=== PATIENT | male | born 1965 | race American Indian/Alaskan Native ===

== ENCOUNTER 2016-12-30 10:19 | Inpatient (IN) | payer OTHER ==
[2016-12-30] MEDS ORDERED: DUONEB 0.5 MG-3 MG/3 ML SOLN IH ONE ×2 (10:28→10:38)
[2016-12-30] MEDS ORDERED: PROVENTIL IH ONE ×2 (11:06→11:11)
[2016-12-30] MEDS ORDERED: MAGNESIUM SULFATE 2GM/50ML 2 GM/50 ML BAG IV ONE ×2 (11:11→11:14)
[2016-12-30] MEDS ORDERED: TORADOL ONE (11:13)
[2016-12-30] MEDS ORDERED: ADRENALIN ONE (11:14)
[2016-12-30] MEDS ORDERED: ADRENALINE P/F SUB-Q ONE (11:14)
[2016-12-30] MEDS ORDERED: ATROVENT IH ONE (11:14)
[2016-12-30] MEDS ORDERED: NACL 0.9% 500 ML 500 ML IV ONE (11:14)
[2016-12-30] MEDS ORDERED: TORADOL IM ONE (11:14)
--- NOTE | 2016-12-30 11:15 | Emergency Department Report ---
ED Shortness of Breath HPI - General Chief Complaint: Dyspnea/Respdistress Stated Complaint: SOB/RAPHAEL/COPD Time Seen by Provider: 12/30/16 11:10 Source: patient, RN notes reviewed, old records reviewed Mode of arrival: Wheelchair Limitations: No Limitations - History of Present Illness Initial Comments: This is a 52-year-old male. He is previously unknown to me. Has a past medical history of asthma, polycythemia, tobacco consumption. Patient admitted to the hospital in 2012 for similar symptoms, had a bone marrow biopsy performed, seen by hematology. Please see the patient's previous notes. Patient presents to the ER today for cough, shortness of breath, wheezing, chest tightness. Symptoms are similar to prior episodes of reactive airway disease. No recent trips greater than 4 hours. No recent hospital admissions. No hematemesis. No bright red blood per rectum. Symptoms are constant, they' re getting worse. MD Complaint: shortness of breath, cough, chest pain -: Gradual Consistency: constant Improves With: oxygen, rest, bronchodilators, upright position, medication Worsens With: lying flat, exertion Known History Of: asthma Context: recent URI Associated Symptoms: chest pain, cough Treatments Prior to Arrival: none - Related Data Home Oxygen Therapy: No Home Medications Medication Instructions Recorded Confirmed Last Taken Albuterol Sulfate [Albuterol 0.63% 0.63 mg IH TID PRN 12/30/16 12/30/16 Unknown NEBS] Fluticasone/Salmeterol [Advair 1 puff IH BID 12/30/16 12/30/16 Unknown Diskus 500-50 mcg] Guaifenesin/Codeine Phosphate 5 ml PO Q6H PRN 12/30/16 12/30/16 Unknown [Guaifenesin-Codeine Syrup] Ibuprofen [Motrin 800 MG tab] 800 mg PO Q8H PRN 12/30/16 12/30/16 Unknown Previous Rx's Medication Instructions Recorded Last Taken Type Albuterol Sulfate [Proventil HFA] 2 puff INHALATION Q4HR PRN #1 10/05/13 Unknown Rx [email or web address] Allergies Allergy/AdvReac Type Severity Reaction Status Date / Time No Known Allergies Allergy Unverified 09/22/13 16:54 ED Review of Systems ROS: Stated complaint: SOB/RAPHAEL/COPD Other details as noted in HPI Constitutional: malaise Eyes: denies: vision change ENT: denies: epistaxis Respiratory: cough, shortness of breath, SOB with exertion, SOB at rest Cardiovascular: chest pain, dyspnea on exertion Gastrointestinal: denies: nausea, vomiting Genitourinary: denies: dysuria Musculoskeletal: denies: arthralgia Skin: denies: lesions Neurological: weakness Psychiatric: anxiety ED Past Medical Hx - Past Medical History Previous Medical History?: Yes Hx Asthma: Yes (nubulizer) Hx COPD: Yes - Social History Smoking Status: Former Smoker Substance Use Type: Alcohol - Medications Home Medications: Home Medications Medication Instructions Recorded Confirmed Last Taken Type Albuterol Sulfate [Proventil HFA] 2 puff INHALATION Q4HR PRN #1 10/05/13 Unknown Rx [email or web address] Albuterol Sulfate [Albuterol 0.63% 0.63 mg IH TID PRN 12/30/16 12/30/16 Unknown History NEBS] Fluticasone/Salmeterol [Advair 1 puff IH BID 12/30/16 12/30/16 Unknown History Diskus 500-50 mcg] Guaifenesin/Codeine Phosphate 5 ml PO Q6H PRN 12/30/16 12/30/16 Unknown History [Guaifenesin-Codeine Syrup] Ibuprofen [Motrin 800 MG tab] 800 mg PO Q8H PRN 12/30/16 12/30/16 Unknown History ED Physical Exam - General Limitations: No Limitations General appearance: alert, in distress - Head Head exam: Present: atraumatic, normocephalic - Eye Eye exam: Present: normal appearance, EOMI. Absent: nystagmus - ENT ENT exam: Present: normal exam, normal orophraynx, mucous membranes moist, normal external ear exam - Neck Neck exam: Present: normal inspection, full ROM. Absent: tenderness, meningismus - Respiratory Respiratory exam: Present: respiratory distress, wheezes, rhonchi, accessory muscle use - Cardiovascular Cardiovascular Exam: Present: normal rhythm, tachycardia, normal heart sounds. Absent: systolic murmur, diastolic murmur, rubs, gallop - GI/Abdominal GI/Abdominal exam: Present: soft, normal bowel sounds. Absent: distended, tenderness, guarding, rebound, rigid - Rectal Rectal exam: Present: deferred - Extremities Exam Extremities exam: Present: normal inspection, full ROM, normal capillary refill. Absent: tenderness, pedal edema, joint swelling, calf tenderness - Back Exam Back exam: Present: normal inspection, full ROM. Absent: tenderness, CVA tenderness (R), CVA tenderness (L), muscle spasm, paraspinal tenderness, vertebral tenderness - Neurological Exam Neurological exam: Present: alert, oriented X3, other (Extraocular movements intact. Tongue midline. No facial droop. Facial sensation intact to light touch in the V1, V2, V3 distribution bilaterally. 5 and 5 strength in 4 extremities.. Sensation is intact to light touch in 4 extremities.). Absent: motor sensory deficit - Psychiatric Psychiatric exam: Present: normal affect, normal mood - Skin Skin exam: Present: warm, dry, intact, normal color. Absent: rash ED Course Vital Signs 12/30/16 12/30/16 12/30/16 10:27 11:09 11:24 Temperature 98.2 F Pulse Rate 113 H 112 H Respiratory 32 H 32 H 32 H Rate Blood Pressure 150/98 Blood Pressure 116/85 [Left] O2 Sat by Pulse 94 95 95 Oximetry 12/30/16 14:32 Temperature Pulse Rate 98 H Respiratory 20 Rate Blood Pressure Blood Pressure 116/90 [Left] O2 Sat by Pulse 95 Oximetry - Reevaluation(s) Reevaluation #1: 12/30/16 13:51 differential diagnosis: COPD exacerbation, asthma exacerbation, bronchitis, incidental polycythemia vera Assessment and plan: 51-year-old male with known history of COPD/interstitial lung disease, who presents with severe work of breathing. Initially, he is quite tachypneic, has markedly work of breathing. He required albuterol, Atrovent, steroids, magnesium, subcutaneous epinephrine, and initiation of BiPAP therapy. After approximately one hour on the aforementioned therapy, he improved dramatically, and was able to be transitioned off of the BiPAP mask. He is currently on nasal cannula, reports that he is feeling well, And his work of breathing has decreased. Case is discussed with the Hospital physician, Dr. Wilder, who accepts the patient to his service. His leukocytosis is appreciated, this has been present in the past, and i dont believe The patient requires emergent hematology consultation at this time, given that the patient has already been worked up for this. 12/30/16 15:14 Reevaluation #2: 12/30/16 13:56 chest pain in the context of increased work of breathing. Patient has reproducible chest wall pain, he is low risk by AMBER score, low risk by heart score ED Medical Decision Making - Lab Data Result diagrams: 12/30/16 11:25 12/30/16 11:25 Vital Signs 12/30/16 12/30/16 12/30/16 10:27 11:09 11:24 Temperature 98.2 F Pulse Rate 113 H 112 H Respiratory 32 H 32 H 32 H Rate Blood Pressure 150/98 Blood Pressure 116/85 [Left] O2 Sat by Pulse 94 95 95 Oximetry Lab Results 12/30/16 12/30/16 12/30/16 Range/Units 11:25 11:25 11:25 WBC TNR RBC TNR Hgb TNR Hct TNR MCV TNR MCH TNR MCHC TNR RDW TNR Plt Count TNR Lymph # Add Manual Diff Total Counted Seg Neuts % (Manual) (40.0-70.0) % Band Neutrophils % % Lymphocytes % (Manual) (13.4-35.0) % Reactive Lymphs % (Man) % Monocytes % (Manual) (0.0-7.3) % Eosinophils % (Manual) (0.0-4.3) % Basophils % (Manual) (0.0-1.8) % Metamyelocytes % % Myelocytes % % Promyelocytes % % Blast Cells % % Nucleated RBC % Seg Neutrophils # Man (1.8-7.7) K/mm3 Band Neutrophils # K/mm3 Lymphocytes # (Manual) (1.2-5.4) K/mm3 Abs React Lymphs (Man) K/mm3 Monocytes # (Manual) (0.0-0.8) K/mm3 Eosinophils # (Manual) (0.0-0.4) K/mm3 Basophils # (Manual) (0.0-0.1) K/mm3 Metamyelocytes # K/mm3 Myelocytes # K/mm3 Promyelocytes # K/mm3 Blast Cells # K/mm3 WBC Morphology Hypersegmented Neuts Hyposegmented Neuts Hypogranular Neuts Smudge Cells Toxic Granulation Toxic Vacuolation Dohle Bodies Pelger-Huet Anomaly Loree Rods Platelet Estimate Clumped Platelets Plt Clumps, EDTA Large Platelets Giant Platelets Platelet Satelliting Plt Morphology Comment RBC Morphology Dimorphic RBCs Polychromasia Hypochromasia Poikilocytosis Anisocytosis Microcytosis Macrocytosis Spherocytes Pappenheimer Bodies Sickle Cells Target Cells Tear Drop Cells Ovalocytes Helmet Cells [place] Bodies [place] Rings Dickens Cells Bite Cells Crenated Cell Elliptocytes Acanthocytes (Spur) Rouleaux Hemoglobin C Crystals Schistocytes Malaria parasites [place] Bodies Hem Pathologist Commnt PT 15.0 H (12.2-14.9) Sec. INR 1.19 H (0.87-1.13) Sodium 138 (137-145) mmol/L Potassium 4.5 (3.6-5.0) mmol/L Chloride 99.0 (98-107) mmol/L Carbon Dioxide 23 (22-30) mmol/L Anion Gap 21 mmol/L BUN 12 (9-20) mg/dL Creatinine 1.6 H (0.8-1.5) mg/dL Estimated GFR 55 ml/min BUN/Creatinine Ratio 7.50 % Glucose 91 (75-100) mg/dL Calcium 8.9 (8.4-10.2) mg/dL Troponin T < 0.010 (0.00-0.029) ng/mL 12/30/16 Range/Units 11:25 WBC 108.4 H* RBC 5.16 H Hgb 14.6 Hct 45.9 H MCV 89 MCH 28 MCHC 32 RDW 17.2 H Plt Count 125 L Lymph # Senior Maintenance Mechanic Add Manual Diff Complete Total Counted 100 Seg Neuts % (Manual) 54.0 (40.0-70.0) % Band Neutrophils % 7.0 % Lymphocytes % (Manual) 8.0 L (13.4-35.0) % Reactive Lymphs % (Man) 0 % Monocytes % (Manual) 7.0 (0.0-7.3) % Eosinophils % (Manual) 0 (0.0-4.3) % Basophils % (Manual) 0 (0.0-1.8) % Metamyelocytes % 17.0 % Myelocytes % 7.0 % Promyelocytes % 0 % Blast Cells % 0 % Nucleated RBC % Not Reportable Seg Neutrophils # Man 58.5 H (1.8-7.7) K/mm3 Band Neutrophils # 7.6 K/mm3 Lymphocytes # (Manual) 8.7 H (1.2-5.4) K/mm3 Abs React Lymphs (Man) 0.0 K/mm3 Monocytes # (Manual) 7.6 H (0.0-0.8) K/mm3 Eosinophils # (Manual) 0.0 (0.0-0.4) K/mm3 Basophils # (Manual) 0.0 (0.0-0.1) K/mm3 Metamyelocytes # 18.4 K/mm3 Myelocytes # 7.6 K/mm3 Promyelocytes # 0.0 K/mm3 Blast Cells # 0.0 K/mm3 WBC Morphology Not Reportable Hypersegmented Neuts Not Reportable Hyposegmented Neuts Not Reportable Hypogranular Neuts Not Reportable Smudge Cells Not Reportable Toxic Granulation Not Reportable Toxic Vacuolation Not Reportable Dohle Bodies Not Reportable Pelger-Huet Anomaly Not Reportable Loree Rods Not Reportable Platelet Estimate Cons Clumped Platelets Not Reportable Plt Clumps, EDTA Not Reportable Large Platelets Not Reportable Giant Platelets Not Reportable Platelet Satelliting Not Reportable Plt Morphology Comment Not Reportable RBC Morphology Not Reportable Dimorphic RBCs Not Reportable Polychromasia Not Reportable Hypochromasia Not Reportable Poikilocytosis Not Reportable Anisocytosis 1+ Microcytosis Not Reportable Macrocytosis Not Reportable Spherocytes Not Reportable Pappenheimer Bodies Not Reportable Sickle Cells Not Reportable Target Cells Not Reportable Tear Drop Cells Few Ovalocytes Not Reportable Helmet Cells Not Reportable [place] Bodies Not Reportable [place] Rings Not Reportable Elidia Cells Not Reportable Bite Cells Not Reportable Crenated Cell Not Reportable Elliptocytes Not Reportable Acanthocytes (Spur) Not Reportable Rouleaux Not Reportable Hemoglobin C Crystals Not Reportable Schistocytes Not Reportable Malaria parasites Not Reportable [place] Bodies Not Reportable Hem Pathologist Commnt Sent to pathology PT (12.2-14.9) Sec. INR (0.87-1.13) Sodium (137-145) mmol/L Potassium (3.6-5.0) mmol/L Chloride (98-107) mmol/L Carbon Dioxide (22-30) mmol/L Anion Gap mmol/L BUN (9-20) mg/dL Creatinine (0.8-1.5) mg/dL Estimated GFR ml/min BUN/Creatinine Ratio % Glucose (75-100) mg/dL Calcium (8.4-10.2) mg/dL Troponin T (0.00-0.029) ng/mL - EKG Data -: EKG Interpreted by Me EKG shows normal: sinus rhythm Rate: tachycardia - EKG Data 12/30/16 13:54 On his tachycardia, 114 beats per minute, normal axis, QTC 449 ms, not morphologically consistent with STEMI, atrial enlargement. Critical Care Time: Yes Critical care time in (mins) excluding proc time.: 45 Critical care attestation.: If time is entered above; I have spent that time in minutes in the direct care of this critically ill patient, excluding procedure time. Critical Care Time: Critical care time includes multiple bedside reevaluation's, interpretation of laboratory studies, radiology studies, time spent managing a patient with severe COPD/reactive lung disease, requiring positive pressure ventilation, subcutaneous epinephrine, and standard medications. This does not include procedure time. ED Disposition Clinical Impression: COPD exacerbation, Leukocytosis Disposition: OP ADMITTED IP TO THIS HOSP Is pt being admited?: Yes Does the pt Need Aspirin: Yes Condition: Good
--- NOTE | 2016-12-30 11:24 | Admit Criteria Form ---
Admission Criteria Documentation: RESPIRATORY FAILURE GRG Clinical Indications for Admission to Inpatient Care (Place 'X' for any and all applicable criteria): Hospital admission is needed for appropriate care of the patient because of acute respiratory failure or insufficiency as indicated by ANY ONE of the following(1)(2)(3)(4)(5)(6)(7)(8): [X ]I. Mechanical ventilation needed (acute invasive or noninvasive) [ ]II. Severe ventilation deficit as indicated by ANY ONE of the following (9) [ ]a) Respiratory acidosis (pH less than 7.32 and partial pressure of carbon dioxide greater than 40 mm Hg (5.3 kPa)) [ ]b) Partial pressure of carbon dioxide greater than 44 mm Hg (5.9 kPa ) (new) [ ]c) Airflow measurements less than 25% of predicted (eg, peak expiratory flow rate less than 100 L/minute) [ ]d) Forced vital capacity less than 15 mL/kg of ideal body weight, or 50% decrease in vital capacity from baseline [ ]III. Noncardiac pulmonary edema not resolving with rapid emergency treatment (8) [ ]IV. Severe respiratory distress as indicated by ANY ONE of the following: [ ]a) Severe tachypnea (respiratory rate greater than 30, greater than 45 for 6-month-old, greater than 60 for ) [ ]b) Severe hypoxemia (partial pressure of oxygen less than 50 mm Hg ( 6.7 kPa) on greater than 50% oxygen or partial pressure of oxygen to FIO2 ratio less than 200) [ ]c) Mental status deterioration from respiratory disease [ ]V. Airway obstruction or inadequate protection [A](10)(11) The original [employer] content created by [employer] has been revised. The portions of the content which have been revised are identified through the use of italic text or in bold, and [employer] has neither reviewed nor approved the modified material. All other unmodified content is copyright [employer]. Please see references footnoted in the original [employer] edition 2016 Admission Criteria Met: Yes
--- NOTE | 2016-12-30 11:25 | XRay Report ---
Portable chest: Shortness of breath. Lungs appear slightly hyperlucent and the interstitial markings may be slightly coarse. There is no nodule no infiltrate. No vascular distention. Normal heart size. These findings are unchanged compared to prior exam in August 2013. Impression: The findings raise suspicion of chronic interstitial lung changes. No acute findings.
[2016-12-30 11:44] LABS: INR 1.19 (0.87-1.13)
[2016-12-30 11:50] LABS: Hematocrit 45.9 % (35.5-45.6); Hemoglobin 14.6 gm/dl (11.8-15.2); Mean Corpuscular HGB Conc 32 % (32-34); Mean Corpuscular Hemoglobin 28 pg (28-32); Mean Corpuscular Volume 89 fl (84-94); Platelet Count 125 K/mm3 (140-440); Red Blood Count 5.16 M/mm3 (3.65-5.03); Red Cell Distribution Width 17.2 % (13.2-15.2); White Blood Count 108.4 K/mm3 (4.5-11.0)
[2016-12-30 11:52] LABS: Hematocrit TNR % (35.5-45.6); Hemoglobin TNR gm/dl (11.8-15.2); Mean Corpuscular HGB Conc TNR % (32-34); Mean Corpuscular Hemoglobin TNR pg (28-32); Mean Corpuscular Volume TNR fl (84-94); Red Blood Count TNR M/mm3 (3.65-5.03); White Blood Count TNR K/mm3 (4.5-11.0)
[2016-12-30 11:53] LABS: Mean Platelet Volume TNR fl (6-12); Platelet Count TNR K/mm3 (140-440); Red Cell Distribution Width TNR % (13.2-15.2)
[2016-12-30 11:54] LABS: Anion Gap 21 mmol/L; Blood Urea Nitrogen 12 mg/dL (9-20); Calcium 8.9 mg/dL (8.4-10.2); Carbon Dioxide 23 mmol/L (22-30); Glucose 91 mg/dL (75-100); Potassium 4.5 mmol/L (3.6-5.0); Sodium 138 mmol/L (137-145)
[2016-12-30 12:44] LABS: Basophils % (Manual) 0 % (0.0-1.8); Blastocytes % (Manual) 0 %; Eosinophils % (Manual) 0 % (0.0-4.3)
[2016-12-30 12:45] LABS: Anisocytosis 1+
[2016-12-30 12:46] LABS: Diff Status Complete; Platelet Estimate Cons; Tear Drop Cells Few
[2016-12-30] MEDS ORDERED: BABY ASPIRIN PO ONE (13:56)
--- NOTE | 2016-12-30 14:20 | Event Note ---
Date: 12/30/16 See H/p in reports Ac resp failure
[2016-12-30] MEDS ORDERED: GUAIFENESIN PO PRN (14:22)
[2016-12-30] MEDS ORDERED: CODEINE PHOSPHATE PO PRN (14:22)
[2016-12-30] MEDS ORDERED: DULCOLAX PR PRN (14:24)
[2016-12-30] MEDS ORDERED: MILK OF MAGNESIA PO PRN (14:24)
[2016-12-30] MEDS ORDERED: ZOFRAN IV PRN (14:24)
[2016-12-30] MEDS ORDERED: AMBIEN PO PRN (14:26)
[2016-12-30] MEDS ORDERED: DUONEB 0.5 MG-3 MG/3 ML SOLN IH PRN (14:29)
[2016-12-30] MEDS ORDERED: NON-FORMULARY (Fluticasone/Salmeterol [Advair Diskus 500-50 Mcg] 1 PUFF) IH SCH (14:30)
[2016-12-30] MEDS ORDERED: LEVAQUIN 750MG/150ML 750 MG/150 ML BAG IV SCH (15:00)
[2016-12-30] MEDS ORDERED: D5/0.45NS 1,000 ML IV SCH (15:00)
[2016-12-30] MEDS ORDERED: PROVENTIL IH PRN ×2 (15:13→15:14)
--- NOTE | 2016-12-30 15:22 | History and Physical Report ---
CHIEF COMPLAINT: Increasing shortness of breath for the last one week. HISTORY OF PRESENT ILLNESS: A 51-year-old -[place] male with history of COPD and CML, comes in for increasing shortness of breath of 1 week duration. The patient has been wheezing and coughing up mucoid sputum. The patient is very short of breath today. The patient has history of asthma, polycythemia and tobacco consumption. No fever, no chills. The patient has prior episodes of reactive airway disease. No recent hospital admissions. No hemetemesis. The patient is on BiPAP in the ER. During my examination, the patient is off BiPAP and on 2 liters nasal cannula oxygen. PAST MEDICAL HISTORY: As mentioned, significant for asthma/COPD. The patient smoked for about 10 years and stopped about 7 years ago. Also chronic myeloid leukemia versus chronic lymphocytic leukemia. The patient has polycythemia. PAST MEDICAL HISTORY: As mentioned asthma and COPD. PAST SURGICAL HISTORY: None. SOCIAL HISTORY: Former smoker, stopped smoking about a pack a day for the last 6-7 years ago. FAMILY HISTORY: Significant for hypertension. REVIEW OF SYSTEMS: CONSTITUTIONAL: No fever, no chills and increasing shortness of breath. HEENT: No sore throat, no postnasal drip. No diplopia. No cranial nerve paralysis. LUNGS AND HEART: S1, S2 heard, slight chest tightness present from coughing. LUNGS: Bilateral inspiratory and expiratory rhonchi present. Diminished air entry. ABDOMEN: Soft and benign. No hepatosplenomegaly. No guarding, no rigidity. CENTRAL NERVOUS SYSTEM: Alert and oriented x 4, nonfocal exam. LABORATORY DATA: Significant for white count of 108,000, H and H is 14.6 and 45.9, platelet count is 125,000. BUN and creatinine is 12 and 1.6. Sodium is 138, potassium is 4.5, bicarbonate is 23. ABG done, results not available. Chest x-ray shows COPD. EKG shows sinus tachycardia 140 beats per minute. QTC is slightly prolonged. Not morphologically consistent with STEMI. Chest x-ray, no infiltrates. ASSESSMENT AND PLAN: 1. Chronic obstructive pulmonary disease exacerbation. The patient continued on DuoNeb q.6 round the clock and q 3 p.r.n. and Levaquin 750 q. 24 hours and also Solu-Medrol 60 mg q.8 hours. 2. Chronic myeloid leukemia, Hematology consulted. The patient to continue his home medication. 3. Polycythemia secondary to smoking and hypoxia. The patient counseled to stop smoking completely. 4. Deep venous thrombosis prophylaxis, Lovenox 40 mg subcutaneous daily. [facility]# [id number] QI/MAGGIE MTDSeven
[2016-12-30 15:40] LABS: ISTAT Base Excess -4; ISTAT HCO3 21.8; ISTAT PCO2 42.1 (35-45); ISTAT PH 7.321 (7.35-7.45); ISTAT PO2 110 (80-105); ISTAT SO2 98; ISTAT TCO2 23
--- NOTE | 2016-12-30 18:09 | Consultation ---
History of Present Illness - Reason for Consult Consult date: 12/30/16 Severe leukocytosis Requesting physician: YAMEL EDWARDS - History of Present Illness Known to us from admission 3 years ago. He was supposed to f/u at our office but never came. At that time he presented with severe leukocytosis up to 80K; had negative BCR-ABL and JAK2 mutations. He had a bone marrow but was discharged before results were available. I was not able to open the bone marrow morphology report tonight but I opened the Scanned Reports section in the Laboratory tab and found out that the marrow cytogenetics showed 19/20 metaphases with 46 XY t(1;5)(q25;q31) translocation. This translocation activates the PDGFRB gene and has been associated with several myeloid disorders , including atypical CML (aCML). Patient's blood also shows no basophilia, which is another typical finding in aCML in contrast to classical CML. Currently has WBC 108.4, hgb. 14.6 g/dL, and platelets 125. Blood smear not available (in Path for review). Creatinine is 1.6 mg/dL (was 1.1 in Sep 2013). Apparently he was hypoxemic in the ED but I cannot find that report, only ABGs done while on O2. Patient tells me that he had been seen at [place] for his leukocytosis recently but no diagnosis made yet and no treatment started. He denies thromboembolic events and he denies fevers, sweats, and unintentional loss of weight. 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) , COPD Past Surgical History: No surgical history Social history: single, other (homeless; history of smoking; history of crack use (not using either now)) Family history: hypertension Medications and Allergies Allergies Allergy/AdvReac Type Severity Reaction Status Date / Time No Known Allergies Allergy Unverified 09/22/13 16:54 Home Medications Medication Instructions Recorded Confirmed Last Taken Type Albuterol Sulfate [Proventil HFA] 2 puff INHALATION Q4HR PRN #1 10/05/13 Unknown Rx hfa.[email or web address].[email or web address] Albuterol Sulfate [Albuterol 0.63% 0.63 mg IH TID PRN 12/30/16 12/30/16 Unknown History NEBS] Fluticasone/Salmeterol [Advair 1 puff IH BID 12/30/16 12/30/16 Unknown History Diskus 500-50 mcg] Guaifenesin/Codeine Phosphate 5 ml PO Q6H PRN 12/30/16 12/30/16 Unknown History [Guaifenesin-Codeine Syrup] Ibuprofen [Motrin 800 MG tab] 800 mg PO Q8H PRN 12/30/16 12/30/16 Unknown History Active Meds: Active Medications Acetaminophen (Tylenol) 650 mg PO Q4H PRN PRN Reason: Pain MILD(1-3)/Fever >100.5/STUART Albuterol (Proventil) 2.5 mg IH Q3HRT PRN PRN Reason: Shortness Of Breath Albuterol/Ipratropium (Duoneb 0.5 Mg-3 Mg/3 Ml Soln) 1 ampul IH Q6HRT [facility] Allopurinol (Zyloprim) 300 mg PO QDAY [facility] Arformoterol Tartrate (Brovana Nebu) 15 mcg IH Q12HRT [facility] Bisacodyl (Dulcolax) 10 mg MS QDAY PRN PRN Reason: Constipation unrelieved by MOM Budesonide (Pulmicort) 1 mg IH Q12HRT [facility] Enoxaparin Sodium (Lovenox) 30 mg SUB-Q QDAY [facility] Hydromorphone HCl (Dilaudid) 0.5 mg IV Q3H PRN PRN Reason: Pain , Severe (7-10) Hydroxyurea (Hydrea) 1,500 mg PO QDAY [facility] Dextrose/Sodium Chloride (D5/0.45ns) 1,000 mls @ 75 mls/hr IV DIRECT VALARIE Stop: 12/31/16 08:00 Last Admin: 12/30/16 17:40 Dose: 75 mls/hr Levofloxacin/Dextrose (Levaquin 750mg/150ml) 750 mg in 150 mls @ 100 mls/hr IV Q48H [facility] PRN Reason: Protocol Last Admin: 12/30/16 17:40 Dose: 100 mls/hr Magnesium Hydroxide (Milk Of Magnesia) 30 ml PO Q4H PRN PRN Reason: Constipation Methylprednisolone Sodium Succinate (Solu-Medrol) 60 mg IV Q8HR [facility] Last Admin: 12/30/16 17:39 Dose: 60 mg Ondansetron HCl (Zofran) 4 mg IV Q8H PRN PRN Reason: N/V unrelieved by Reglan Oxycodone/Acetaminophen (Percocet 5/325) 1 tab PO Q6H PRN PRN Reason: Pain, Moderate (4-6) Pseudoephedrine/Acetam/Chlorphenir (Robitussin Ac) 5 ml PO Q6H PRN PRN Reason: Cough Zolpidem Tartrate (Ambien) 5 mg PO QHS PRN PRN Reason: Insomnia Review of Systems Constitutional: malaise, poor appetite, no weight loss, no weight gain Ears, nose, mouth and throat: no epistaxis, no dysphagia, no hoarseness, no sore throat Cardiovascular: no chest pain, no palpitations, no high blood pressure, no leg edema Respiratory: cough, shortness of breath, dyspnea on exertion, no pain, no pain on inspiration Gastrointestinal: no abdominal pain, no nausea, no vomiting, no diarrhea, no constipation Genitourinary Male: no dysuria, no hematuria Musculoskeletal: no hot joints, no gait dysfunction, no arthritis Integumentary: no rash, no pruritis, no jaundice Neurological: no numbness, no tingling, no seizures, no syncope, no vertigo, no gait dysfunction, no motor disturbance, no sensory deficit, no double vision, no loss of vision Endocrine: no cold intolerance, no heat intolerance Hematologic/Lymphatic: no easy bruising, no easy bleeding Allergic/Immunologic: no urticaria Exam - Constitutional Vitals: Temp Pulse Resp BP Pulse Ox 98.2 F 106 H 22 121/73 94 12/30/16 17:31 12/30/16 17:31 12/30/16 17:31 12/30/16 17:31 12/30/16 17:31 General appearance: Present: mild distress, other (using O2 NC) - EENT Eyes: Present: PERRL, EOM intact. Absent: scleral icterus ENT: clear oral mucosa, no thrush - Neck Neck: Present: supple. Absent: masses or JVD - Respiratory Respiratory effort: labored Respiratory: bilateral: diminished - Cardiovascular Rhythm: regular Heart Sounds: Present: S1 & S2. Absent: gallop - Extremities Extremities: no ischemia, No edema - Abdominal General gastrointestinal: Present: soft, non-tender, non-distended, normal bowel sounds. Absent: hepatomegaly, splenomegaly, mass - Integumentary Integumentary: Present: warm, dry. 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 Will start allopurinol today and hydroxyurea tomorrow. Start TKI inhibitor outpatient. Will try to accrue into [facility] Indigent program because he has no insurance. (2) COPD exacerbation Current Visit: Yes Status: Acute Plan to address problem: Management as per primary team. I could not find a pulse oxymetry on room air. If patient was hypoxemic he may have pulmonary leukostasis and would need rapid cytoreduction with either leukopheresis or more aggressive hydroxyurea dosing. (3) Blood creatinine increased compared with prior measurement Current Visit: Yes Status: Acute Plan to address problem: E&M per primary service. Check Uric acid for possible hyperuricemic nephropaty.
[2016-12-30] MEDS: DUONEB 0.5 MG-3 MG/3 ML SOLN IH SCH ×2 (19:55→20:03)
[2016-12-30] MEDS: BROVANA NEBU IH SCH (20:03)
[2016-12-30] MEDS: PULMICORT IH SCH (20:03)
[2016-12-30] MEDS: DILAUDID IV PRN (22:26)
[2016-12-31] MEDS: DUONEB 0.5 MG-3 MG/3 ML SOLN IH SCH ×4 (02:01→20:12)
[2016-12-31 06:13] LABS: Albumin 3.8 g/dL (3.9-5); Albumin/Globulin Ratio 1.3 %; Bilirubin,Total 0.4 mg/dL (0.1-1.2); Calcium 8.5 mg/dL (8.4-10.2); Chloride 99.7 mmol/L (98-107); Potassium 4.2 mmol/L (3.6-5.0); Total Protein 6.7 g/dL (6.3-8.2)
[2016-12-31] MEDS: DILAUDID IV PRN (06:40)
[2016-12-31 06:41] LABS: Uric Acid 7.3 mg/dL (3.5-7.6)
[2016-12-31] MEDS: PULMICORT IH SCH ×2 (07:05→20:49)
[2016-12-31] MEDS: BROVANA NEBU IH SCH ×2 (07:05→20:42)
[2016-12-31] MEDS ORDERED: LOVENOX SUB-Q SCH ×2 (10:00)
[2016-12-31 10:14] LABS: ISTAT Base Excess -2; ISTAT DEVICE 0; ISTAT HCO3 22.5; ISTAT PCO2 35.4 (35-45); ISTAT PH 7.412 (7.35-7.45); ISTAT PO2 62 (80-105); ISTAT SO2 92; ISTAT TCO2 24
[2016-12-31] MEDS ORDERED: ZOFRAN IV PRN (10:16)
[2016-12-31] MEDS: LOVENOX SUB-Q SCH (12:04)
[2016-12-31] MEDS: LEVAQUIN 750MG/150ML 750 MG/150 ML BAG IV SCH (12:05)
[2016-12-31] MEDS: HYDREA PO SCH (12:05)
[2016-12-31] MEDS: ZYLOPRIM PO SCH ×2 (12:06)
[2016-12-31] MEDS: PERCOCET 5/325 PO PRN (14:46)
--- NOTE | 2016-12-31 14:53 | Progress Note ---
Assessment and Plan Assessment and plan: Patient is a 51 year old male with hx of copd, CML unfortunately had not follow with PCP as to the ER today with shortness of breath associated with cough productive of mucus sputum ONE week. 'On admission was placed on BiPAP due to hypoxia. Patient was seen by oncologist with and started on allopurinol today and hydroxyurea. and noted had negative BCR-ABL and JAK2 mutations. He had a bone marrow but was discharged before results were available. I was not able to open the bone marrow morphology report tonight but I opened the Scanned Reports section in the Laboratory tab and found out that the marrow cytogenetics showed 19/20 metaphases with 46 XY t(1;5)(q25;q31) translocation. This translocation activates the PDGFRB gene and has been associated with several myeloid disorders, including atypical CML (aCML). Patient's blood also shows no basophilia, which is another typical finding in aCML in contrast to classical CML." . Blood smear not available (in Path for review). * Acute on chronic shortness of breath. 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 Plan: * Hematology input noted * continue allopurinol/hydroxyurea * Follow blood smear * Continue nebulizer treatment, steroids, antibiotics * We'll discuss with oncologist * Obtain ABG * Renal function improve * DVT./GI PROPHYLAXIS * PLAN OF CARE discussed with patient. - History Interval history: Patient seen and examined this morning no acute distress reports some improvement in shortness of breath. Denies any chest pain, nausea, ventricular diarrhea. No adverse events reported by nursing staff Hospitalist Physical - Physical exam Narrative exam: VITAL SIGNS: Reviewed. GENERAL: The patient appeared well nourished and normally developed. Vital signs as documented. HEAD: No signs of head trauma. EYES: Pupils are equal. Extraocular motions intact. EARS: Hearing grossly intact. MOUTH: Oropharynx is normal. NECK: No adenopathy, no JVD. CHEST: Chest with diminished breath sounds bilaterally. No wheezes, rales, or rhonchi. CARDIAC: Regular rate and rhythm. S1 and S2, without murmurs, gallops, or rubs. VASCULAR: No Edema. Peripheral pulses normal and equal in all extremities. ABDOMEN: Soft, without detectable tenderness. No sign of distention. No rebound or guarding, and no masses palpated. Bowel Sounds normal. MUSCULOSKELETAL: Good range of motion of all major joints. Extremities without clubbing, cyanosis or edema. NEUROLOGIC EXAM: Alert and oriented x 3. No focal sensory or strength deficits. Speech normal. Follows commands. PSYCHIATRIC: Mood normal. SKIN: No rash or lesions. - Constitutional Vitals: Temp Pulse Resp BP Pulse Ox 97.7 F 79 18 120/78 95 12/31/16 08:00 12/31/16 08:00 12/31/16 08:00 12/31/16 08:00 12/31/16 08:00 General appearance: Present: mild distress, other (using O2 NC) Results - Labs CBC & Chem 7: 12/30/16 11:25 12/31/16 05:07 Labs: Laboratory Last Values WBC TNR 12/30/16 11:25 RBC TNR 12/30/16 11:25 Hgb TNR 12/30/16 11:25 Hct TNR 12/30/16 11:25 MCV TNR 12/30/16 11:25 MCH TNR 12/30/16 11:25 MCHC TNR 12/30/16 11:25 RDW TNR 12/30/16 11:25 Plt Count TNR 12/30/16 11:25 Lymph # Manager Professional Development 12/30/16 11:25 Add Manual Diff Complete 12/30/16 11:25 Total Counted 100 12/30/16 11:25 Seg Neuts % (Manual) 54.0 % (40.0-70.0) 12/30/16 11:25 Band Neutrophils % 7.0 % 12/30/16 11:25 Lymphocytes % (Manual) 8.0 % (13.4-35.0) L 12/30/16 11:25 Reactive Lymphs % (Man) 0 % 12/30/16 11:25 Monocytes % (Manual) 7.0 % (0.0-7.3) 12/30/16 11:25 Eosinophils % (Manual) 0 % (0.0-4.3) 12/30/16 11:25 Basophils % (Manual) 0 % (0.0-1.8) 12/30/16 11:25 Metamyelocytes % 17.0 % 12/30/16 11:25 Myelocytes % 7.0 % 12/30/16 11:25 Promyelocytes % 0 % 12/30/16 11:25 Blast Cells % 0 % 12/30/16 11:25 Nucleated RBC % Not Reportable 12/30/16 11:25 Seg Neutrophils # Man 58.5 K/mm3 (1.8-7.7) H 12/30/16 11:25 Band Neutrophils # 7.6 K/mm3 12/30/16 11:25 Lymphocytes # (Manual) 8.7 K/mm3 (1.2-5.4) H 12/30/16 11:25 Abs React Lymphs (Man) 0.0 K/mm3 12/30/16 11:25 Monocytes # (Manual) 7.6 K/mm3 (0.0-0.8) H 12/30/16 11:25 Eosinophils # (Manual) 0.0 K/mm3 (0.0-0.4) 12/30/16 11:25 Basophils # (Manual) 0.0 K/mm3 (0.0-0.1) 12/30/16 11:25 Metamyelocytes # 18.4 K/mm3 12/30/16 11:25 Myelocytes # 7.6 K/mm3 12/30/16 11:25 Promyelocytes # 0.0 K/mm3 12/30/16 11:25 Blast Cells # 0.0 K/mm3 12/30/16 11:25 Pathologist Review 12/30/16 11:25 WBC Morphology Not Reportable 12/30/16 11:25 Hypersegmented Neuts Not Reportable 12/30/16 11:25 Hyposegmented Neuts Not Reportable 12/30/16 11:25 Hypogranular Neuts Not Reportable 12/30/16 11:25 Smudge Cells Not Reportable 12/30/16 11:25 Toxic Granulation Not Reportable 12/30/16 11:25 Toxic Vacuolation Not Reportable 12/30/16 11:25 Dohle Bodies Not Reportable 12/30/16 11:25 Pelger-Huet Anomaly Not Reportable 12/30/16 11:25 Loree Rods Not Reportable 12/30/16 11:25 Platelet Estimate Cons 12/30/16 11:25 Clumped Platelets Not Reportable 12/30/16 11:25 Plt Clumps, EDTA Not Reportable 12/30/16 11:25 Large Platelets Not Reportable 12/30/16 11:25 Giant Platelets Not Reportable 12/30/16 11:25 Platelet Satelliting Not Reportable 12/30/16 11:25 Plt Morphology Comment Not Reportable 12/30/16 11:25 RBC Morphology Not Reportable 12/30/16 11:25 Dimorphic RBCs Not Reportable 12/30/16 11:25 Polychromasia Not Reportable 12/30/16 11:25 Hypochromasia Not Reportable 12/30/16 11:25 Poikilocytosis Not Reportable 12/30/16 11:25 Anisocytosis 1+ 12/30/16 11:25 Microcytosis Not Reportable 12/30/16 11:25 Macrocytosis Not Reportable 12/30/16 11:25 Spherocytes Not Reportable 12/30/16 11:25 Pappenheimer Bodies Not Reportable 12/30/16 11:25 Sickle Cells Not Reportable 12/30/16 11:25 Target Cells Not Reportable 12/30/16 11:25 Tear Drop Cells Few 12/30/16 11:25 Ovalocytes Not Reportable 12/30/16 11:25 Helmet Cells Not Reportable 12/30/16 11:25 Renner-Rubicon Bodies Not Reportable 12/30/16 11:25 Edison Rings Not Reportable 12/30/16 11:25 Elidia Cells Not Reportable 12/30/16 11:25 Bite Cells Not Reportable 12/30/16 11:25 Crenated Cell Not Reportable 12/30/16 11:25 Elliptocytes Not Reportable 12/30/16 11:25 Acanthocytes (Spur) Not Reportable 12/30/16 11:25 Rouleaux Not Reportable 12/30/16 11:25 Hemoglobin C Crystals Not Reportable 12/30/16 11:25 Schistocytes Not Reportable 12/30/16 11:25 Malaria parasites Not Reportable 12/30/16 11:25 Hernesto Bodies Not Reportable 12/30/16 11:25 Hem Pathologist Commnt Sent to pathology 12/30/16 11:25 PT 15.0 Sec. (12.2-14.9) H 12/30/16 11:25 INR 1.19 (0.87-1.13) H 12/30/16 11:25 POC ABG pH 7.412 (7.35-7.45) 12/31/16 09:57 POC ABG pCO2 35.4 (35-45) 12/31/16 09:57 POC ABG pO2 62 (80-105) L 12/31/16 09:57 POC ABG HCO3 22.5 12/31/16 09:57 POC ABG Total CO2 24 12/31/16 09:57 POC ABG O2 Sat 92 12/31/16 09:57 POC ABG Base Excess -2 12/31/16 09:57 FiO2 21 % 12/31/16 09:57 Sodium 137 mmol/L (137-145) 12/31/16 05:07 Potassium 4.2 mmol/L (3.6-5.0) 12/31/16 05:07 Chloride 99.7 mmol/L (98-107) 12/31/16 05:07 Carbon Dioxide 22 mmol/L (22-30) 12/31/16 05:07 Anion Gap 20 mmol/L 12/31/16 05:07 BUN 21 mg/dL (9-20) H 12/31/16 05:07 Creatinine 1.5 mg/dL (0.8-1.5) 12/31/16 05:07 Estimated GFR 59 ml/min 12/31/16 05:07 BUN/Creatinine Ratio 14.00 % 12/31/16 05:07 Glucose 149 mg/dL (75-100) H 12/31/16 05:07 Hemoglobin A1c 6.0 % (4-6) 12/30/16 14:48 Uric Acid 7.3 mg/dL (3.5-7.6) 12/31/16 05:07 Calcium 8.5 mg/dL (8.4-10.2) 12/31/16 05:07 Total Bilirubin 0.4 mg/dL (0.1-1.2) 12/31/16 05:07 AST 7 units/L (5-40) 12/31/16 05:07 ALT 6 units/L (7-56) L 12/31/16 05:07 Alkaline Phosphatase 50 units/L (35-129) 12/31/16 05:07 Lactate Dehydrogenase 285 units/L (91-180) H 12/31/16 05:07 Troponin T < 0.010 ng/mL (0.00-0.029) 12/30/16 11:25 Total Protein 6.7 g/dL (6.3-8.2) 12/31/16 05:07 Albumin 3.8 g/dL (3.9-5) L 12/31/16 05:07 Albumin/Globulin Ratio 1.3 % 12/31/16 05:07 - Imaging and Cardiology Chest x-ray: image reviewed (interstitial lung disease)
[2016-12-31 17:07] LABS: Hematocrit 43.2 % (35.5-45.6); Hemoglobin 13.7 gm/dl (11.8-15.2); Mean Corpuscular HGB Conc 32 % (32-34); Mean Corpuscular Hemoglobin 28 pg (28-32); Mean Corpuscular Volume 89 fl (84-94); Platelet Count 141 K/mm3 (140-440); Red Blood Count 4.87 M/mm3 (3.65-5.03); Red Cell Distribution Width 17.6 % (13.2-15.2)
[2016-12-31 17:09] LABS: Phosphorous 4.2 mg/dL (2.5-4.5)
[2016-12-31 17:13] LABS: White Blood Count 150.2 K/mm3 (4.5-11.0)
[2016-12-31 19:46] LABS: Basophils % (Manual) 0 % (0.0-1.8); Eosinophils % (Manual) 0 % (0.0-4.3)
[2016-12-31 19:50] LABS: Anisocytosis 1+; Diff Status Complete; Elliptocytes Few; Platelet Estimate Consistent w Auto; Polychromasia 1+
[2016-12-31] MEDS: ROBITUSSIN AC PO PRN (20:27)
[2017-01-01] MEDS: DUONEB 0.5 MG-3 MG/3 ML SOLN IH SCH ×4 (02:38→20:49)
[2017-01-01] MEDS: PULMICORT IH SCH ×2 (07:48→19:51)
[2017-01-01] MEDS: BROVANA NEBU IH SCH ×2 (07:49→19:51)
[2017-01-01] MEDS: ROBITUSSIN AC PO PRN ×2 (09:37→19:11)
[2017-01-01] MEDS: HYDREA PO SCH (09:43)
[2017-01-01] MEDS: LEVAQUIN 750MG/150ML 750 MG/150 ML BAG IV SCH (09:43)
[2017-01-01] MEDS: LOVENOX SUB-Q SCH (09:43)
[2017-01-01] MEDS: ZYLOPRIM PO SCH (09:43)
[2017-01-01] MEDS: PERCOCET 5/325 PO PRN (09:44)
[2017-01-01 10:34] LABS: BUN/Creatinine Ratio 12.94; Calcium 8.7 mg/dL (8.4-10.2); Chloride 98.6 mmol/L (98-107); Potassium 4.5 mmol/L (3.6-5.0)
[2017-01-01 10:48] LABS: Hematocrit 44.6 % (35.5-45.6); Mean Corpuscular HGB Conc 31 % (32-34); Mean Corpuscular Hemoglobin 28 pg (28-32); Mean Corpuscular Volume 90 fl (84-94); Platelet Count 156 K/mm3 (140-440); Red Blood Count 4.96 M/mm3 (3.65-5.03); Red Cell Distribution Width 17.7 % (13.2-15.2)
[2017-01-01 11:00] LABS: White Blood Count 160.4 K/mm3 (4.5-11.0)
--- NOTE | 2017-01-01 12:22 | Physician Progress Note ---
FOLLOWUP NOTE SUBJECTIVE: The patient states that his shortness of breath has significantly improved. He is on O2. He is not as short of breath as yesterday. I talked to the nurse. He started Hydrea 1500 mg today. Checked with the nurse, already Hydrea has been ordered on daily basis. He should be receiving it tomorrow. He has no fever. No chills. No hemoptysis. No skin rash. No itching. No ____ quadrant pain. No ____ part of the body. No headache. No back pain. No recent thrombotic event. No skin rash. No itching. OBJECTIVE: VITAL SIGNS: Temperature 97.6, blood pressure 113/62, pulse 76, respirations 20, and O2 saturation 96%. Reviewing recent records of O2 saturation; the last 3 recorded 98%, 95%, 96%. GENERAL: The patient in bed, sitting up, alert and oriented, in no apparent respiratory distress. O2 in place, nasal cannula. Grossly, he has no evidence of wheezing. Grossly, there is no evidence of accessory muscle use. SKIN: No bruises. No petechiae. HEENT: No nose bleed. No gum bleed. NECK: No adenopathy. CHEST: Normal breathing pattern. No use of accessory muscles. LUNGS: The patient has no wheezing I could hear today. No rales. Nonetheless, he has diminished breathing sounds. Expiratory phase is increased. HEART: Regular rate and rhythm. No S3 or gallop. ABDOMEN: Soft, nontender. No palpable masses, ____ I could not feel spleen today. No inguinal adenopathy. SPINE: Nontender. GENITOURINARY: No flank tenderness. EXTREMITIES: No calves tenderness bilaterally. No edema. CENTRAL NERVOUS SYSTEM: No acute/recent focal [place] deficits. Mood and affect unremarkable. LABORATORY DATA: O2 saturation finding has been discussed above. No CBCs available for today (I reordered following the visits since not being done) ____ white cell count 108, hemoglobin 14.6, hematocrit 45.9, MCV 89, MCH 28, MCHC 32, RDW 17, platelets 125,000, neutrophils 58, bands 7.6, lymphocyte 8.7, monocytes 7.6. He has 18 metamyelocyte and 7.6 monocytes. No blast has been identified. Today BUN 21, creatinine ____. Today uric acid 7.3. Calcium today 8.5. Bilirubin is 7.0. ASSESSMENT: 1. Atypical chronic myeloid leukemia. BCR/ABL negative. His leukemia is rare type with ____ gene. The patient started on allopurinol yesterday. Hydrea started today 1500 mg p.o. daily. 2. Chronic obstructive pulmonary disease exacerbation, improved clinically. 3. Blood creatinine was up yesterday, today back to normal values. 4. History of polycythemia secondary to tobacco abuse. 5. History of tobacco abuse. PLAN: Hydrea started today. The patient will be monitored for tumor lysis syndrome. Followup CBC will be requested. Followup basic metabolic profile with special emphasis on BUN and creatinine being initiated. Also followup with uric acid and phosphate has been requested. Continue management ____ medical problems. Discuss ____ with the patient as well as case management director. I did discuss with the patient and case management that following his initial diagnosis 3 years ago, he failed to show up for followup appointment. He is to follow with [facility] same week following discharge. JOB# [id number] ALTAGRACIA/NTS
[2017-01-01] MEDS: TYLENOL PO PRN (14:11)
[2017-01-01 14:30] LABS: Creatine Kinase 51 units/L (55-170)
[2017-01-01 14:37] LABS: Creatine Kinase MB < 1.0 ng/mL (0.0-4.0)
[2017-01-01 17:23] LABS: Hematocrit 43.8 % (35.5-45.6); Hemoglobin 13.7 gm/dl (11.8-15.2); Mean Corpuscular HGB Conc 31 % (32-34); Mean Corpuscular Hemoglobin 28 pg (28-32); Mean Corpuscular Volume 89 fl (84-94); Platelet Count 146 K/mm3 (140-440); Red Blood Count 4.94 M/mm3 (3.65-5.03); Red Cell Distribution Width 17.7 % (13.2-15.2)
[2017-01-01 17:31] LABS: White Blood Count 161.9 K/mm3 (4.5-11.0)
[2017-01-01 17:33] LABS: Phosphorous 3.8 mg/dL (2.5-4.5)
[2017-01-01 17:35] LABS: Creatine Kinase MB 1.1 ng/mL (0.0-4.0)
[2017-01-01 17:45] LABS: Calcium 8.5 mg/dL (8.4-10.2); Chloride 96.9 mmol/L (98-107)
--- NOTE | 2017-01-01 18:39 | Progress Note ---
Assessment and Plan Assessment and plan: Patient is a 51 year old male with hx of copd, CML unfortunately had not follow with PCP as to the ER today with shortness of breath associated with cough productive of mucus sputum ONE week. 'On admission was placed on BiPAP due to hypoxia. Patient was seen by oncologist with and started on allopurinol today and hydroxyurea. and noted had negative BCR-ABL and JAK2 mutations. He had a bone marrow but was discharged before results were available. I was not able to open the bone marrow morphology report tonight but I opened the Scanned Reports section in the Laboratory tab and found out that the marrow cytogenetics showed 19/20 metaphases with 46 XY t(1;5)(q25;q31) translocation. This translocation activates the PDGFRB gene and has been associated with several myeloid disorders, including atypical CML (aCML). Patient's blood also shows no basophilia, which is another typical finding in aCML in contrast to classical CML." . Blood smear not available (in Path for review). * Acute on chronic respiratory failure * Hop. * COPD EXACERBATION * arm pain r/o acs * Acute kidney injury likely secondary to vasomotor nephropathy * Polycythemia Vera secondary to smoking and hypoxia- resolved * CML BCR/ABL-negative * Tobacco abuse. Plan: * Hematology input noted * Troponin check and normal. no chest pain. EKG reviewed and normal sinus rhythm noted * continue allopurinol/hydroxyurea * Follow blood smear, BMP, Leukocytosis, uric acid and phosphate. * ?increase leukocytosis if steriods is contributing. will taper steriods. * Continue nebulizer treatment, steroids, antibiotics * We'll discuss with oncologist * Renal function improve * Home 02 eval prior to discharge * DVT./GI PROPHYLAXIS * PLAN OF CARE discussed with patient. - History Interval history: Patient seen and examined this morning notes some improvement but still with cough Denies any chest pain, nausea, diarrhea. No adverse events reported by nursing staff. later today reported left arm pain. Hospitalist Physical - Physical exam Narrative exam: VITAL SIGNS: Reviewed. GENERAL: The patient appeared well nourished and normally developed. Vital signs as documented. HEAD: No signs of head trauma. EYES: Pupils are equal. Extraocular motions intact. EARS: Hearing grossly intact. MOUTH: Oropharynx is normal. NECK: No adenopathy, no JVD. CHEST: Chest with wheezing breath sounds bilaterally. CARDIAC: Regular rate and rhythm. S1 and S2, without murmurs, gallops, or rubs. VASCULAR: No Edema. Peripheral pulses normal and equal in all extremities. ABDOMEN: Soft, without detectable tenderness. No sign of distention. No rebound or guarding, and no masses palpated. Bowel Sounds normal. MUSCULOSKELETAL: Good range of motion of all major joints. Extremities without clubbing, cyanosis or edema. NEUROLOGIC EXAM: Alert and oriented x 3. No focal sensory or strength deficits. Speech normal. Follows commands. PSYCHIATRIC: Mood normal. SKIN: No rash or lesions. - Constitutional Vitals: Temp Pulse Resp BP Pulse Ox 97.9 F 77 20 115/62 94 01/01/17 15:26 01/01/17 15:26 01/01/17 15:26 01/01/17 15:26 01/01/17 08:20 General appearance: Present: mild distress, other (using O2 NC) Results - Labs CBC & Chem 7: 01/01/17 16:41 01/01/17 16:41 Labs: Laboratory Last Values WBC 161.9 K/mm3 (4.5-11.0) H* 01/01/17 16:41 RBC 4.94 M/mm3 (3.65-5.03) 01/01/17 16:41 Hgb 13.7 gm/dl (11.8-15.2) 01/01/17 16:41 Hct 43.8 % (35.5-45.6) 01/01/17 16:41 MCV 89 fl (84-94) 01/01/17 16:41 MCH 28 pg (28-32) 01/01/17 16:41 MCHC 31 % (32-34) L 01/01/17 16:41 RDW 17.7 % (13.2-15.2) H 01/01/17 16:41 Plt Count 146 K/mm3 (140-440) 01/01/17 16:41 Lymph # [employer] Vehicle [employer] 12/31/16 16:25 Add Manual Diff Complete 12/31/16 16:25 Total Counted 200 12/31/16 16:25 Seg Neutrophils % [employer] Vehicle Salesperson 12/31/16 16:25 Seg Neuts % (Manual) 28.5 % (40.0-70.0) L 12/31/16 16:25 Band Neutrophils % 42.0 % 12/31/16 16:25 Lymphocytes % (Manual) 5.5 % (13.4-35.0) L 12/31/16 16:25 Reactive Lymphs % (Man) 0 % 12/31/16 16:25 Monocytes % (Manual) 5.0 % (0.0-7.3) 12/31/16 16:25 Eosinophils % (Manual) 0 % (0.0-4.3) 12/31/16 16:25 Basophils % (Manual) 0 % (0.0-1.8) 12/31/16 16:25 Metamyelocytes % 3.0 % 12/31/16 16:25 Myelocytes % 9.5 % 12/31/16 16:25 Promyelocytes % 4.5 % 12/31/16 16:25 Blast Cells % 2.0 % 12/31/16 16:25 Nucleated RBC % Not Reportable 12/31/16 16:25 Seg Neutrophils # Man 42.8 K/mm3 (1.8-7.7) H 12/31/16 16:25 Band Neutrophils # 63.1 K/mm3 12/31/16 16:25 Lymphocytes # (Manual) 8.3 K/mm3 (1.2-5.4) H 12/31/16 16:25 Abs React Lymphs (Man) 0.0 K/mm3 12/31/16 16:25 Monocytes # (Manual) 7.5 K/mm3 (0.0-0.8) H 12/31/16 16:25 Eosinophils # (Manual) 0.0 K/mm3 (0.0-0.4) 12/31/16 16:25 Basophils # (Manual) 0.0 K/mm3 (0.0-0.1) 12/31/16 16:25 Metamyelocytes # 4.5 K/mm3 12/31/16 16:25 Myelocytes # 14.3 K/mm3 12/31/16 16:25 Promyelocytes # 6.8 K/mm3 12/31/16 16:25 Blast Cells # 0.4 K/mm3 12/31/16 16:25 Pathologist Review 12/30/16 11:25 WBC Morphology Not Reportable 12/31/16 16:25 Hypersegmented Neuts Not Reportable 12/31/16 16:25 Hyposegmented Neuts Not Reportable 12/31/16 16:25 Hypogranular Neuts Not Reportable 12/31/16 16:25 Smudge Cells Not Reportable 12/31/16 16:25 Toxic Granulation Not Reportable 12/31/16 16:25 Toxic Vacuolation Not Reportable 12/31/16 16:25 Dohle Bodies Not Reportable 12/31/16 16:25 Pelger-Huet Anomaly Not Reportable 12/31/16 16:25 Loree Rods Not Reportable 12/31/16 16:25 Platelet Estimate Consistent w auto 12/31/16 16:25 Clumped Platelets Not Reportable 12/31/16 16:25 Plt Clumps, EDTA Not Reportable 12/31/16 16:25 Large Platelets Not Reportable 12/31/16 16:25 Giant Platelets Not Reportable 12/31/16 16:25 Platelet Satelliting Not Reportable 12/31/16 16:25 Plt Morphology Comment Not Reportable 12/31/16 16:25 RBC Morphology Not Reportable 12/31/16 16:25 Dimorphic RBCs Not Reportable 12/31/16 16:25 Polychromasia 1+ 12/31/16 16:25 Hypochromasia Not Reportable 12/31/16 16:25 Poikilocytosis Not Reportable 12/31/16 16:25 Anisocytosis 1+ 12/31/16 16:25 Microcytosis Not Reportable 12/31/16 16:25 Macrocytosis Not Reportable 12/31/16 16:25 Spherocytes Not Reportable 12/31/16 16:25 Pappenheimer Bodies Not Reportable 12/31/16 16:25 Sickle Cells Not Reportable 12/31/16 16:25 Target Cells Not Reportable 12/31/16 16:25 Tear Drop Cells Not Reportable 12/31/16 16:25 Ovalocytes Not Reportable 12/31/16 16:25 Helmet Cells Not Reportable 12/31/16 16:25 Renner-[place] Bodies Not Reportable 12/31/16 16:25 [place] Rings Not Reportable 12/31/16 16:25 Sulph[place] Cells Not Reportable 12/31/16 16:25 Bite Cells Not Reportable 12/31/16 16:25 Crenated Cell Not Reportable 12/31/16 16:25 Elliptocytes Few 12/31/16 16:25 Acanthocytes (Spur) Not Reportable 12/31/16 16:25 Rouleaux Not Reportable 12/31/16 16:25 Hemoglobin C Crystals Not Reportable 12/31/16 16:25 Schistocytes Not Reportable 12/31/16 16:25 Malaria parasites Not Reportable 12/31/16 16:25 Hern[place] Bodies Not Reportable 12/31/16 16:25 Hem Pathologist Commnt No 12/31/16 16:25 PT 15.0 Sec. (12.2-14.9) H 12/30/16 11:25 INR 1.19 (0.87-1.13) H 12/30/16 11:25 POC ABG pH 7.412 (7.35-7.45) 12/31/16 09:57 POC ABG pCO2 35.4 (35-45) 12/31/16 09:57 POC ABG pO2 62 (80-105) L 12/31/16 09:57 POC ABG HCO3 22.5 12/31/16 09:57 POC ABG Total CO2 24 12/31/16 09:57 POC ABG O2 Sat 92 12/31/16 09:57 POC ABG Base Excess -2 12/31/16 09:57 FiO2 21 % 12/31/16 09:57 Sodium 135 mmol/L (137-145) L 01/01/17 16:41 Potassium 5.0 mmol/L (3.6-5.0) 01/01/17 16:41 Chloride 96.9 mmol/L (98-107) L 01/01/17 16:41 Carbon Dioxide 22 mmol/L (22-30) 01/01/17 16:41 Anion Gap 21 mmol/L 01/01/17 16:41 BUN 24 mg/dL (9-20) H 01/01/17 16:41 Creatinine 1.6 mg/dL (0.8-1.5) H 01/01/17 16:41 Estimated GFR 55 ml/min 01/01/17 16:41 BUN/Creatinine Ratio 15.00 % 01/01/17 16:41 Glucose 150 mg/dL (75-100) H 01/01/17 16:41 POC Glucose 128 (70-105) H 12/31/16 05:54 Hemoglobin A1c 6.0 % (4-6) 12/30/16 14:48 Uric Acid 7.3 mg/dL (3.5-7.6) 12/31/16 05:07 Calcium 8.5 mg/dL (8.4-10.2) 01/01/17 16:41 Phosphorus 3.8 mg/dL (2.5-4.5) 01/01/17 16:41 Total Bilirubin 0.4 mg/dL (0.1-1.2) 12/31/16 05:07 AST 7 units/L (5-40) 12/31/16 05:07 ALT 6 units/L (7-56) L 12/31/16 05:07 Alkaline Phosphatase 50 units/L (35-129) 12/31/16 05:07 Lactate Dehydrogenase 316 units/L (91-180) H 12/31/16 16:25 Total Creatine Kinase 53 units/L (55-170) L 01/01/17 16:41 CK-MB (CK-2) 1.1 ng/mL (0.0-4.0) 01/01/17 16:41 CK-MB (CK-2) Rel Index 2.0 (0-4) 01/01/17 16:41 Troponin T < 0.010 ng/mL (0.00-0.029) 01/01/17 09:57 Total Protein 6.7 g/dL (6.3-8.2) 12/31/16 05:07 Albumin 3.8 g/dL (3.9-5) L 12/31/16 05:07 Albumin/Globulin Ratio 1.3 % 12/31/16 05:07
[2017-01-01 19:20] LABS: Uric Acid 5.3 mg/dL (3.5-7.6)
[2017-01-01 19:59] LABS: Basophils % (Manual) 0 % (0.0-1.8); Blastocytes % (Manual) 0 %; Eosinophils % (Manual) 0 % (0.0-4.3)
[2017-01-01 20:00] LABS: Anisocytosis 1+; Poikilocytosis 1+
[2017-01-01 20:01] LABS: Diff Status Complete; Elliptocytes 1+; Platelet Estimate Consistent w Auto
[2017-01-02] MEDS: DUONEB 0.5 MG-3 MG/3 ML SOLN IH SCH ×4 (02:13→19:24)
[2017-01-02 06:55] LABS: Bilirubin,Total 0.3 mg/dL (0.1-1.2)
[2017-01-02 06:56] LABS: Bilirubin,Direct < 0.2 mg/dL (0-0.2); Bilirubin,Indirect 0.1 mg/dL
--- NOTE | 2017-01-02 07:25 | Progress Note ---
Assessment and Plan Assessment and plan: Patient is a 51 year old male with hx of copd, CML unfortunately had not follow with PCP as to the ER today with shortness of breath associated with cough productive of mucus sputum ONE week. 'On admission was placed on BiPAP due to hypoxia. Patient was seen by oncologist with and started on allopurinol today and hydroxyurea. and noted had negative BCR-ABL and JAK2 mutations. He had a bone marrow but was discharged before results were available. I was not able to open the bone marrow morphology report tonight but I opened the Scanned Reports section in the Laboratory tab and found out that the marrow cytogenetics showed 19/20 metaphases with 46 XY t(1;5)(q25;q31) translocation. This translocation activates the PDGFRB gene and has been associated with several myeloid disorders, including atypical CML (aCML). Patient's blood also shows no basophilia, which is another typical finding in aCML in contrast to classical CML." . Blood smear not available (in Path for review). * Acute on chronic respiratory failure * CML BCR/ABL-negative * COPD EXACERBATION * arm pain r/o acs- resolved * Acute kidney injury likely secondary to vasomotor nephropathy * Polycythemia Vera secondary to smoking and hypoxia- resolved * Tobacco abuse. Plan: * Hematology input noted * Start on gentle hydration * Obtain Nephrology consult. Complex case * awaiting todays lab * Monitor for Tumor Lysis syndrom * Troponin check and normal. no chest pain. EKG reviewed and normal sinus rhythm noted * continue allopurinol/hydroxyurea * Follow blood smear, BMP, Leukocytosis. Uric acid and phos are normal. * ?increase leukocytosis if steriods is contributing. will taper steriods. * Continue nebulizer treatment, steroids, antibiotics * We'll discuss with oncologist * Renal function improve * Home 02 eval prior to discharge * DVT./GI PROPHYLAXIS * PLAN OF CARE discussed with patient. - History Interval history: Patient seen and examined this morning reports cough, lightheadness, intermittent blurry vision, joint pains,. states this has been intermittent for some weeks now. Hospitalist Physical - Physical exam Narrative exam: VITAL SIGNS: Reviewed. GENERAL: The patient appeared well nourished and normally developed. Vital signs as documented. HEAD: No signs of head trauma. EYES: Pupils are equal. Extraocular motions intact. EARS: Hearing grossly intact. MOUTH: Oropharynx is normal. NECK: No adenopathy, no JVD. CHEST: Chest with wheezing breath sounds bilaterally. CARDIAC: Regular rate and rhythm. S1 and S2, without murmurs, gallops, or rubs. VASCULAR: No Edema. Peripheral pulses normal and equal in all extremities. ABDOMEN: Soft, without detectable tenderness. No sign of distention. No rebound or guarding, and no masses palpated. Bowel Sounds normal. MUSCULOSKELETAL: Good range of motion of all major joints. Extremities without clubbing, cyanosis or edema. NEUROLOGIC EXAM: Alert and oriented x 3. No focal sensory or strength deficits. Speech normal. Follows commands. PSYCHIATRIC: Mood normal. SKIN: No rash or lesions. - Constitutional Vitals: Temp Pulse Resp BP Pulse Ox 98.2 F 78 20 129/72 94 01/01/17 23:46 01/01/17 23:46 01/01/17 23:46 01/01/17 23:46 01/01/17 23:46 General appearance: Present: mild distress, other (using O2 NC) Results - Labs CBC & Chem 7: 01/01/17 16:41 01/01/17 16:41 Labs: Laboratory Last Values WBC 161.9 K/mm3 (4.5-11.0) H* 01/01/17 16:41 RBC 4.94 M/mm3 (3.65-5.03) 01/01/17 16:41 Hgb 13.7 gm/dl (11.8-15.2) 01/01/17 16:41 Hct 43.8 % (35.5-45.6) 01/01/17 16:41 MCV 89 fl (84-94) 01/01/17 16:41 MCH 28 pg (28-32) 01/01/17 16:41 MCHC 31 % (32-34) L 01/01/17 16:41 RDW 17.7 % (13.2-15.2) H 01/01/17 16:41 Plt Count 146 K/mm3 (140-440) 01/01/17 16:41 Lymph # Mixing Machine Tender [place] 12/31/16 16:25 Add Manual Diff Complete 01/01/17 16:41 Total Counted 200 01/01/17 16:41 Seg Neutrophils % Mixing Machine Tender [place] Rod 12/31/16 16:25 Seg Neuts % (Manual) 43.0 % (40.0-70.0) 01/01/17 16:41 Band Neutrophils % 35.0 % 01/01/17 16:41 Lymphocytes % (Manual) 3.5 % (13.4-35.0) L 01/01/17 16:41 Reactive Lymphs % (Man) 0 % 01/01/17 16:41 Monocytes % (Manual) 7.5 % (0.0-7.3) H 01/01/17 16:41 Eosinophils % (Manual) 0 % (0.0-4.3) 01/01/17 16:41 Basophils % (Manual) 0 % (0.0-1.8) 01/01/17 16:41 Metamyelocytes % 4.5 % 01/01/17 16:41 Myelocytes % 6.0 % 01/01/17 16:41 Promyelocytes % 0.5 % 01/01/17 16:41 Blast Cells % 0 % 01/01/17 16:41 Nucleated RBC % Not Reportable 01/01/17 16:41 Seg Neutrophils # Man 69.6 K/mm3 (1.8-7.7) H 01/01/17 16:41 Band Neutrophils # 56.7 K/mm3 01/01/17 16:41 Lymphocytes # (Manual) 5.7 K/mm3 (1.2-5.4) H 01/01/17 16:41 Abs React Lymphs (Man) 0.0 K/mm3 01/01/17 16:41 Monocytes # (Manual) 12.1 K/mm3 (0.0-0.8) H 01/01/17 16:41 Eosinophils # (Manual) 0.0 K/mm3 (0.0-0.4) 01/01/17 16:41 Basophils # (Manual) 0.0 K/mm3 (0.0-0.1) 01/01/17 16:41 Metamyelocytes # 7.3 K/mm3 01/01/17 16:41 Myelocytes # 9.7 K/mm3 01/01/17 16:41 Promyelocytes # 0.8 K/mm3 01/01/17 16:41 Blast Cells # 0.0 K/mm3 01/01/17 16:41 Pathologist Review 12/30/16 11:25 WBC Morphology Not Reportable 01/01/17 16:41 Hypersegmented Neuts Not Reportable 01/01/17 16:41 Hyposegmented Neuts Not Reportable 01/01/17 16:41 Hypogranular Neuts Not Reportable 01/01/17 16:41 Smudge Cells Not Reportable 01/01/17 16:41 Toxic Granulation Not Reportable 01/01/17 16:41 Toxic Vacuolation Not Reportable 01/01/17 16:41 Dohle Bodies Not Reportable 01/01/17 16:41 Pelger-Huet Anomaly Not Reportable 01/01/17 16:41 Loree Rods Not Reportable 01/01/17 16:41 Platelet Estimate Consistent w auto 01/01/17 16:41 Clumped Platelets Not Reportable 01/01/17 16:41 Plt Clumps, EDTA Not Reportable 01/01/17 16:41 Large Platelets Not Reportable 01/01/17 16:41 Giant Platelets Not Reportable 01/01/17 16:41 Platelet Satelliting Not Reportable 01/01/17 16:41 Plt Morphology Comment Not Reportable 01/01/17 16:41 RBC Morphology Not Reportable 01/01/17 16:41 Dimorphic RBCs Not Reportable 01/01/17 16:41 Polychromasia Not Reportable 01/01/17 16:41 Hypochromasia Not Reportable 01/01/17 16:41 Poikilocytosis 1+ 01/01/17 16:41 Anisocytosis 1+ 01/01/17 16:41 Microcytosis Not Reportable 01/01/17 16:41 Macrocytosis Not Reportable 01/01/17 16:41 Spherocytes Not Reportable 01/01/17 16:41 Pappenheimer Bodies Not Reportable 01/01/17 16:41 Sickle Cells Not Reportable 01/01/17 16:41 Target Cells Not Reportable 01/01/17 16:41 Tear Drop Cells Not Reportable 01/01/17 16:41 Ovalocytes Not Reportable 01/01/17 16:41 Helmet Cells Not Reportable 01/01/17 16:41 [place] Bodies Not Reportable 01/01/17 16:41 [place] Rings Not Reportable 01/01/17 16:41 [place] Cells Not Reportable 01/01/17 16:41 Bite Cells Not Reportable 01/01/17 16:41 Crenated Cell Not Reportable 01/01/17 16:41 Elliptocytes 1+ 01/01/17 16:41 Acanthocytes (Spur) Not Reportable 01/01/17 16:41 Rouleaux Not Reportable 01/01/17 16:41 Hemoglobin C Crystals Not Reportable 01/01/17 16:41 Schistocytes Not Reportable 01/01/17 16:41 Malaria parasites Not Reportable 01/01/17 16:41 [place] Bodies Not Reportable 01/01/17 16:41 Hem Pathologist Commnt No 01/01/17 16:41 PT 15.0 Sec. (12.2-14.9) H 12/30/16 11:25 INR 1.19 (0.87-1.13) H 12/30/16 11:25 POC ABG pH 7.412 (7.35-7.45) 12/31/16 09:57 POC ABG pCO2 35.4 (35-45) 12/31/16 09:57 POC ABG pO2 62 (80-105) L 12/31/16 09:57 POC ABG HCO3 22.5 12/31/16 09:57 POC ABG Total CO2 24 12/31/16 09:57 POC ABG O2 Sat 92 12/31/16 09:57 POC ABG Base Excess -2 12/31/16 09:57 FiO2 21 % 12/31/16 09:57 Sodium 135 mmol/L (137-145) L 01/01/17 16:41 Potassium 5.0 mmol/L (3.6-5.0) 01/01/17 16:41 Chloride 96.9 mmol/L (98-107) L 01/01/17 16:41 Carbon Dioxide 22 mmol/L (22-30) 01/01/17 16:41 Anion Gap 21 mmol/L 01/01/17 16:41 BUN 24 mg/dL (9-20) H 01/01/17 16:41 Creatinine 1.6 mg/dL (0.8-1.5) H 01/01/17 16:41 Estimated GFR 55 ml/min 01/01/17 16:41 BUN/Creatinine Ratio 15.00 % 01/01/17 16:41 Glucose 150 mg/dL (75-100) H 01/01/17 16:41 POC Glucose 128 (70-105) H 12/31/16 05:54 Hemoglobin A1c 6.0 % (4-6) 12/30/16 14:48 Uric Acid 5.3 mg/dL (3.5-7.6) 01/01/17 16:41 Calcium 8.5 mg/dL (8.4-10.2) 01/01/17 16:41 Phosphorus 3.8 mg/dL (2.5-4.5) 01/01/17 16:41 Total Bilirubin 0.3 mg/dL (0.1-1.2) 01/02/17 05:59 Direct Bilirubin < 0.2 mg/dL (0-0.2) 01/02/17 05:59 Indirect Bilirubin 0.1 mg/dL 01/02/17 05:59 AST 7 units/L (5-40) 12/31/16 05:07 ALT 6 units/L (7-56) L 12/31/16 05:07 Alkaline Phosphatase 50 units/L (35-129) 12/31/16 05:07 Lactate Dehydrogenase 432 units/L (91-180) H 01/01/17 16:41 Total Creatine Kinase 53 units/L (55-170) L 01/01/17 16:41 CK-MB (CK-2) 1.1 ng/mL (0.0-4.0) 01/01/17 16:41 CK-MB (CK-2) Rel Index 2.0 (0-4) 01/01/17 16:41 Troponin T < 0.010 ng/mL (0.00-0.029) 01/01/17 09:57 Total Protein 6.7 g/dL (6.3-8.2) 12/31/16 05:07 Albumin 3.8 g/dL (3.9-5) L 12/31/16 05:07 Albumin/Globulin Ratio 1.3 % 12/31/16 05:07 - Imaging and Cardiology CT scan - chest: pending CT Scan - head: pending
[2017-01-02] MEDS: PULMICORT IH SCH ×2 (08:09→19:25)
[2017-01-02] MEDS: BROVANA NEBU IH SCH ×2 (08:09→19:25)
[2017-01-02] MEDS ORDERED: CEPHULAC PO PRN (08:51)
[2017-01-02] MEDS: LEVAQUIN 750MG/150ML 750 MG/150 ML BAG IV SCH (09:31)
[2017-01-02] MEDS: NACL 0.9% 1000 ML 1,000 ML IV SCH (09:31)
--- NOTE | 2017-01-02 11:44 | Consultation ---
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 Symptoms are similar to prior COPD exacerbations. Initial Labs in ED showed that he has WBC of 108.4, hgb. 14.6 g/dL, and platelets 125 and elevated Creatinine of 1.6 mg/dL (was 1.1 in Sep 2013). We are consulted to assist with diagnosis and management of his renal insufficiency. No labs in our system b/n Sep 2013 and current admission i.e no recent baseline. Denies use of NSAIDs. No recent contrast exposure. No change in U/O. 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) , COPD Past Surgical History: No surgical history Social history: single, other (homeless; history of smoking; history of crack use (not using either now)) Family history: hypertension Medications and Allergies Allergies Allergy/AdvReac Type Severity Reaction Status Date / Time No Known Allergies Allergy Unverified 09/22/13 16:54 Home Medications Medication Instructions Recorded Confirmed Last Taken Type Albuterol Sulfate [Proventil HFA] 2 puff INHALATION Q4HR PRN #1 10/05/13 Unknown Rx [email or web address] Albuterol Sulfate [Albuterol 0.63% 0.63 mg IH TID PRN 12/30/16 12/30/16 Unknown History NEBS] Fluticasone/Salmeterol [Advair 1 puff IH BID 12/30/16 12/30/16 Unknown History Diskus 500-50 mcg] Guaifenesin/Codeine Phosphate 5 ml PO Q6H PRN 12/30/16 12/30/16 Unknown History [Guaifenesin-Codeine Syrup] Ibuprofen [Motrin 800 MG tab] 800 mg PO Q8H PRN 12/30/16 12/30/16 Unknown History Active Meds: Active Medications Acetaminophen (Tylenol) 650 mg PO Q4H PRN PRN Reason: Pain MILD(1-3)/Fever >100.5/STUART Last Admin: 01/01/17 14:11 Dose: 650 mg Albuterol (Proventil) 2.5 mg IH Q3HRT PRN PRN Reason: Shortness Of Breath Albuterol/Ipratropium (Duoneb 0.5 Mg-3 Mg/3 Ml Soln) 1 ampul IH Q6HRT [facility] Last Admin: 01/02/17 08:09 Dose: 1 ampul Allopurinol (Zyloprim) 300 mg PO QDAY [facility] Last Admin: 01/01/17 09:43 Dose: 300 mg Arformoterol Tartrate (Brovana Nebu) 15 mcg IH Q12HRT [facility] Last Admin: 01/02/17 08:09 Dose: 15 mcg Bisacodyl (Dulcolax) 10 mg MO QDAY PRN PRN Reason: Constipation unrelieved by MOM Last Admin: 01/01/17 22:44 Dose: 10 mg Budesonide (Pulmicort) 1 mg IH Q12HRT [facility] Last Admin: 01/02/17 08:09 Dose: 1 mg Docusate Sodium (Colace) 100 mg PO BID [facility] Enoxaparin Sodium (Lovenox) 40 mg SUB-Q QDAY@1000 [facility] Last Admin: 01/01/17 09:43 Dose: 40 mg Hydromorphone HCl (Dilaudid) 0.5 mg IV Q3H PRN PRN Reason: Pain , Severe (7-10) Last Admin: 12/31/16 06:40 Dose: 0.5 mg Hydroxyurea (Hydrea) 1,500 mg PO QDAY [facility] Last Admin: 01/01/17 09:43 Dose: 1,500 mg Levofloxacin/Dextrose (Levaquin 750mg/150ml) 750 mg in 150 mls @ 100 mls/hr IV Q24HR [facility] PRN Reason: Protocol Last Admin: 01/02/17 09:31 Dose: 100 mls/hr Sodium Chloride (Nacl 0.9% 1000 Ml) 1,000 mls @ 75 mls/hr IV DIRECT [facility] Last Admin: 01/02/17 09:31 Dose: 75 mls/hr Lactulose (Cephulac) 20 gm PO Q6H PRN PRN Reason: Constipation Magnesium Hydroxide (Milk Of Magnesia) 30 ml PO Q4H PRN PRN Reason: Constipation Methylprednisolone Sodium Succinate (Solu-Medrol) 40 mg IV Q12HR [facility] Last Admin: 01/02/17 09:31 Dose: 40 mg Ondansetron HCl (Zofran) 4 mg IV Q6H PRN PRN Reason: Nausea And Vomiting Oxycodone/Acetaminophen (Percocet 5/325) 1 tab PO Q6H PRN PRN Reason: Pain, Moderate (4-6) Last Admin: 01/01/17 09:44 Dose: 1 tab Pseudoephedrine/Acetam/Chlorphenir (Robitussin Ac) 5 ml PO Q6H PRN PRN Reason: Cough Last Admin: 01/01/17 19:11 Dose: 5 ml Zolpidem Tartrate (Ambien) 5 mg PO QHS PRN PRN Reason: Insomnia Review of Systems Constitutional: no weight loss, no weight gain, no fever, no chills, no anorexia , no fatigue, no weakness, no poor appetite, no daytime sleepiness, no chronic pain Ears, nose, mouth and throat: no ear pain, no ear discharge, no tinnitis Cardiovascular: no chest pain, no orthopnea, no syncope, no lightheadedness Respiratory: cough, shortness of breath, congestion Gastrointestinal: no abdominal pain, no nausea, no vomiting, no diarrhea Genitourinary Male: no dysuria, no hematuria, no flank pain, no urinary frequency, no urinary hesitancy Rectal: no pain, no incontinence Musculoskeletal: no neck stiffness, no neck pain, no low back pain Integumentary: no rash, no pruritis Neurological: no paralysis, no weakness, no parathesias, no seizures Psychiatric: no anxiety, no memory loss Endocrine: no cold intolerance, no heat intolerance Hematologic/Lymphatic: no easy bruising, no easy bleeding Allergic/Immunologic: allergic rhinitis, wheezing, no urticaria Exam - Vital Signs Vital signs: Vital Signs Temp Pulse Resp BP Pulse Ox 98.2 F 113 H 32 H 150/98 94 12/30/16 10:27 12/30/16 10:27 12/30/16 10:27 12/30/16 10:27 12/30/16 10:27 - General Appearance General appearance: well-developed, well-nourished, appears stated age EENT: PERRL, mucous membranes moist Neck: Present: neck supple, trachea midline. Absent: JVD/HJR, Masses Respiratory: Clear to Ascultation, Other (scattered wheezing ) Heart: regular, normal heart rate, S1S2, no murmurs Gastrointestinal: Present: normal. Absent: tenderness, distended, masses, guarding Integumentary: no rash, warm and dry Neurologic: no focal deficit, alert and oriented x3, gait normal, strength 5/5 Musculoskeletal: Absent: deformities, joint swelling Psychiatric: mood/affect appropriate, cooperative Results - Lab Results 01/02/17 15:17 01/02/17 15:23 Most recent lab results Calcium 8.5 mg/dL (8.4-10.2) 01/01/17 16:41 Phosphorus 3.8 mg/dL (2.5-4.5) 01/01/17 16:41 Assessment and Plan 1. THALIA vs CKD No recent baseline CR available CR has been stable since admission at 1.6 Obtain urine studies, renal U/S for further work up Likely Differentials include prerenal azotemia, urate nephropathy He has NL uric acid level, normal phosphate, and calcium levels. LDH is elevated about 2 x the normal range. Continue to monitor closely for TLS Recommend aggressive IV hydration Agree with starting him on allupurinol/ will consider rasburicase 2. Hyperkalemia potential causes in this patient include a. Volume depletion leading to decreased sodium delivery to distal tubule hence decreased K excretion b. Hemolysis c. Reverse pseudohyperkalemia -neoplastic WBC membranes could be sensitive to heparin used in test tubes. etc... 3. 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 COPD exacerbation management per primary team Further recommendations to follow. Discussed with Dr Casey
--- NOTE | 2017-01-02 12:13 | Cat Scan Report ---
CT HEAD WITHOUT CONTRAST: HISTORY: TIA. Serial contiguous axial images were obtained through the cranium. Intravenous contrast material was not administered. The ventricles are normal in size and appearance. There is no mass effect or midline shift. No areas of abnormally increased or decreased attenuation are seen. No mass lesion is seen. The mastoid air cells and visualized portions of the sinuses are normal. IMPRESSION: Cranial CT scan within normal limits.
[2017-01-02] MEDS: COLACE PO SCH ×2 (13:00→23:08)
[2017-01-02] MEDS: LOVENOX SUB-Q SCH (13:00)
[2017-01-02] MEDS: ZYLOPRIM PO SCH (13:00)
[2017-01-02] MEDS: HYDREA PO SCH (13:00)
[2017-01-02 15:03] LABS: Bilirubin,Urine NEG (Negative); Blood,Urine NEG (Negative); Ketones,Urine NEG (Negative); Leukocyte Esterase,Urine NEG (Negative); Nitrite,Urine NEG (Negative); Protein,Urine <15 mg/dL mg/dL (Negative); Urobilinogen,Urine < 2.0 mg/dL (<2.0)
[2017-01-02 15:46] LABS: Mean Corpuscular HGB Conc 31 % (32-34); Mean Corpuscular Hemoglobin 28 pg (28-32); Mean Corpuscular Volume 91 fl (84-94); Platelet Count 171 K/mm3 (140-440); Red Cell Distribution Width 17.5 % (13.2-15.2)
[2017-01-02 15:51] LABS: BUN/Creatinine Ratio 16.25; Calcium 8.4 mg/dL (8.4-10.2); Chloride 97.3 mmol/L (98-107); Potassium 5.3 mmol/L (3.6-5.0)
[2017-01-02 15:52] LABS: Hematocrit 44.5 % (35.5-45.6); Hemoglobin 13.8 gm/dl (11.8-15.2); White Blood Count 156.9 K/mm3 (4.5-11.0)
[2017-01-02 15:56] LABS: Phosphorous 3.4 mg/dL (2.5-4.5)
[2017-01-02 16:44] LABS: Basophils % (Manual) 0 % (0.0-1.8); Blastocytes % (Manual) 0 %; Eosinophils % (Manual) 0 % (0.0-4.3)
[2017-01-02 16:45] LABS: Anisocytosis 1+; Diff Status Complete; Elliptocytes Few; Hypochromasia Few; Platelet Estimate Consistent w Auto; Poikilocytosis 1+
[2017-01-02] MEDS: PERCOCET 5/325 PO PRN (19:10)
[2017-01-03] MEDS: NACL 0.9% 1000 ML 1,000 ML IV SCH ×2 (02:04→15:16)
[2017-01-03] MEDS: DUONEB 0.5 MG-3 MG/3 ML SOLN IH SCH ×4 (02:06→20:33)
--- NOTE | 2017-01-03 07:36 | Hem/Onc Progress Note ---
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 Gibbons. Patient has a rare leukemia with a translocation t(1;5)(q21 ;q33) activating the PDGFRB gene. Allopurinol and hydroxyurea started. Start TKI inhibitor as outpatient with Dr. Gibbons. Follow CBC, uric acid. (2) COPD exacerbation Current Visit: Yes Status: Acute Plan to address problem: O2 and neb rx per pulmonary/primary. Subjective Date of service: 01/02/17 Interval history: Patient in [place] Still feels weak. Objective - Constitutional Vitals: Last Vital Signs Temp 98.3 F 01/02/17 23:08 Pulse 89 01/02/17 23:08 Resp 20 01/02/17 23:08 BP 154/90 01/02/17 23:08 Pulse Ox 100 01/02/17 23:08 General appearance: no acute distress - EENT Eyes: PERRL - Neck Neck: supple, normal ROM - Respiratory Respiratory: bilateral: diminished (Apices clear. Bases decreased) - Cardiovascular Rhythm: regular Heart Sounds: Present: S1 & S2 Extremities: no ischemia, No edema - Gastrointestinal General gastrointestinal: Present: soft, normal bowel sounds Rectal Exam: deferred - Genitourinary Male genitourinary: Present: deferred - Integumentary Integumentary: clear, warm, dry - Musculoskeletal Musculoskeletal: strength equal bilaterally - Labs Lab Results: Laboratory Results - last 24 hr 01/02/17 01/02/17 01/02/17 14:24 14:24 15:17 WBC 156.9 H* RBC 4.90 Hgb 13.8 Hct 44.5 MCV 91 MCH 28 MCHC 31 L RDW 17.5 H Plt Count 171 Add Manual Diff Complete Total Counted 100 Seg Neuts % (Manual) 52.0 Band Neutrophils % 19.0 Lymphocytes % (Manual) 2.0 L Reactive Lymphs % (Man) 0 Monocytes % (Manual) 15.0 H Eosinophils % (Manual) 0 Basophils % (Manual) 0 Metamyelocytes % 8.0 Myelocytes % 4.0 Promyelocytes % 0 Blast Cells % 0 Nucleated RBC % Not Reportable Seg Neutrophils # Man 81.6 H Band Neutrophils # 29.8 Lymphocytes # (Manual) 3.1 Abs React Lymphs (Man) 0.0 Monocytes # (Manual) 23.5 H Eosinophils # (Manual) 0.0 Basophils # (Manual) 0.0 Metamyelocytes # 12.6 Myelocytes # 6.3 Promyelocytes # 0.0 Blast Cells # 0.0 WBC Morphology Not Reportable Hypersegmented Neuts Not Reportable Hyposegmented Neuts Not Reportable Hypogranular Neuts Not Reportable Smudge Cells Not Reportable Toxic Granulation Not Reportable Toxic Vacuolation Not Reportable Dohle Bodies Not Reportable Pelger-Huet Anomaly Not Reportable Loree Rods Not Reportable Platelet Estimate Consistent w auto Clumped Platelets Not Reportable Plt Clumps, EDTA Not Reportable Large Platelets Not Reportable Giant Platelets Not Reportable Platelet Satelliting Not Reportable Plt Morphology Comment Not Reportable RBC Morphology Not Reportable Dimorphic RBCs Not Reportable Polychromasia Not Reportable Hypochromasia Few Poikilocytosis 1+ Anisocytosis 1+ Microcytosis Not Reportable Macrocytosis Not Reportable Spherocytes Not Reportable Pappenheimer Bodies Not Reportable Sickle Cells Not Reportable Target Cells Not Reportable Tear Drop Cells Not Reportable Ovalocytes Not Reportable Helmet Cells Not Reportable [place] Bodies Not Reportable [place] Rings Not Reportable Elidia Cells Not Reportable Bite Cells Not Reportable Crenated Cell Not Reportable Elliptocytes Few Acanthocytes (Spur) Not Reportable Rouleaux Not Reportable Hemoglobin C Crystals Not Reportable Schistocytes Not Reportable Malaria parasites Not Reportable [place] Bodies Not Reportable Hem Pathologist Commnt No Sodium Potassium Chloride Carbon Dioxide Anion Gap BUN Creatinine Estimated GFR BUN/Creatinine Ratio Glucose Uric Acid Calcium Phosphorus Lactate Dehydrogenase Urine Color Yellow Urine Turbidity Clear Urine pH 6.0 Ur Specific [place] 1.014 Urine Protein <15 mg/dl Urine Glucose (UA) Neg Urine Ketones Neg Urine Blood Neg Urine Nitrite Neg Urine Bilirubin Neg Urine Urobilinogen < 2.0 Ur Leukocyte Esterase Neg Urine WBC (Auto) 1.0 Urine RBC (Auto) 1.0 U Epithel Cells (Auto) 1.0 Amorphous Crystals Urine Creatinine 88.7 H Protein/Creatinin Ratio 0.24 Urine Total Protein 21 H 01/02/17 01/02/17 01/02/17 15:22 15:23 23:59 WBC RBC Hgb Hct MCV MCH MCHC RDW Plt Count Add Manual Diff Total Counted Seg Neuts % (Manual) Band Neutrophils % Lymphocytes % (Manual) Reactive Lymphs % (Man) Monocytes % (Manual) Eosinophils % (Manual) Basophils % (Manual) Metamyelocytes % Myelocytes % Promyelocytes % Blast Cells % Nucleated RBC % Seg Neutrophils # Man Band Neutrophils # Lymphocytes # (Manual) Abs React Lymphs (Man) Monocytes # (Manual) Eosinophils # (Manual) Basophils # (Manual) Metamyelocytes # Myelocytes # Promyelocytes # Blast Cells # WBC Morphology Hypersegmented Neuts Hyposegmented Neuts Hypogranular Neuts Smudge Cells Toxic Granulation Toxic Vacuolation Dohle Bodies Pelger-Huet Anomaly Loree Rods Platelet Estimate Clumped Platelets Plt Clumps, EDTA Large Platelets Giant Platelets Platelet Satelliting Plt Morphology Comment RBC Morphology Dimorphic RBCs Polychromasia Hypochromasia Poikilocytosis Anisocytosis Microcytosis Macrocytosis Spherocytes Pappenheimer Bodies Sickle Cells Target Cells Tear Drop Cells Ovalocytes Helmet Cells [place] Bodies [place] Rings Elidia Cells Bite Cells Crenated Cell Elliptocytes Acanthocytes (Spur) Rouleaux Hemoglobin C Crystals Schistocytes Malaria parasites [place] Bodies Hem Pathologist Commnt Sodium 134 L Potassium 5.3 H Chloride 97.3 L Carbon Dioxide 25 Anion Gap 17 BUN 26 H Creatinine 1.6 H Estimated GFR 55 BUN/Creatinine Ratio 16.25 Glucose 125 H Uric Acid 5.0 Calcium 8.4 Phosphorus 3.4 Lactate Dehydrogenase 433 H Urine Color Urine Turbidity Urine pH Ur Specific [place] Urine Protein Urine Glucose (UA) Urine Ketones Urine Blood Urine Nitrite Urine Bilirubin Urine Urobilinogen Ur Leukocyte Esterase Urine WBC (Auto) 3.0 Urine RBC (Auto) 1.0 U Epithel Cells (Auto) < 1.0 Amorphous Crystals 1+ Urine Creatinine Protein/Creatinin Ratio Urine Total Protein
[2017-01-03] MEDS: BROVANA NEBU IH SCH ×2 (08:10→20:33)
[2017-01-03] MEDS: PULMICORT IH SCH ×2 (08:10→20:29)
--- NOTE | 2017-01-03 08:56 | Progress Note ---
Assessment and Plan Assessment and plan: Patient is a 51 year old male with hx of copd, CML unfortunately had not follow with PCP as to the ER today with shortness of breath associated with cough productive of mucus sputum ONE week. 'On admission was placed on BiPAP due to hypoxia. Patient was seen by oncologist with and started on allopurinol today and hydroxyurea. and noted had negative BCR-ABL and JAK2 mutations. He had a bone marrow but was discharged before results were available. I was not able to open the bone marrow morphology report tonight but I opened the Scanned Reports section in the Laboratory tab and found out that the marrow cytogenetics showed 19/20 metaphases with 46 XY t(1;5)(q25;q31) translocation. This translocation activates the PDGFRB gene and has been associated with several myeloid disorders, including atypical CML (aCML). Patient's blood also shows no basophilia, which is another typical finding in aCML in contrast to classical CML." Patient was started on allopurinol, there is also consideration of antiarrhythmic case. Patient does have elevated creatinine but unsure of what his baseline is nephrology did give consulted. Urine renal ultrasound was checked and was normal. Patient started on aggressive fluids. We'll follow renal function. A stress tests performed today result is being followed. 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 Plan: * Hematology input noted * Start on gentle hydration * Consult cardiology * Kayaxlate and recheck renal function in a.m. * Will like to see improvement in renal function and also shortness of breath prior to discharge * Nephrology input noted Complex case * STRESS TEST PENDING. * Start on aggressive fluid resuscitation and monitor renal function * Monitor for Tumor Lysis syndrom -currently normal phosphate, normal urine and uric acid level and calcium. LDH mildly elevated * Stress test today result pending EKG reviewed and normal sinus rhythm noted * continue allopurinol/hydroxyurea * Follow blood smear, BMP, Leukocytosis. * ?increase leukocytosis if steriods is contributing. will taper steriods. * Continue nebulizer treatment, steroids, antibiotics * We'll discuss with oncologist * Home 02 eval prior to discharge * DVT./GI PROPHYLAXIS * PLAN OF CARE discussed with patient. * Anticipate discharge in a.m. History Interval history: Patient seen and examined this morning reports reports some improvement in the cough, no lightheadedness or blurred vision today. Still some joints intermittent chest pain. Denies any nausea or vomiting. Still some shortness of breath. No other adverse events reported by nursing staff Hospitalist Physical - Physical exam Narrative exam: VITAL SIGNS: Reviewed. GENERAL: The patient appeared well nourished and normally developed. Vital signs as documented. HEAD: No signs of head trauma. EYES: Pupils are equal. Extraocular motions intact. EARS: Hearing grossly intact. MOUTH: Oropharynx is normal. NECK: No adenopathy, no JVD. CHEST: Chest with wheezing breath sounds bilaterally. CARDIAC: Regular rate and rhythm. S1 and S2, without murmurs, gallops, or rubs. VASCULAR: No Edema. Peripheral pulses normal and equal in all extremities. ABDOMEN: Soft, without detectable tenderness. No sign of distention. No rebound or guarding, and no masses palpated. Bowel Sounds normal. MUSCULOSKELETAL: Good range of motion of all major joints. Extremities without clubbing, cyanosis or edema. NEUROLOGIC EXAM: Alert and oriented x 3. No focal sensory or strength deficits. Speech normal. Follows commands. PSYCHIATRIC: Mood normal. SKIN: No rash or lesions. - Constitutional Vitals: Temp Pulse Resp BP Pulse Ox 98.3 F 83 20 154/90 97 01/02/17 23:08 01/03/17 08:11 01/02/17 23:08 01/02/17 23:08 01/03/17 08:16 General appearance: Present: mild distress, other (using O2 NC) Results - Labs CBC & Chem 7: 01/02/17 15:17 01/02/17 15:23 Labs: Laboratory Last Values WBC 156.9 K/mm3 (4.5-11.0) H* 01/02/17 15: RBC 4.90 M/mm3 (3.65-5.03) 01/02/17 15:17 Hgb 13.8 gm/dl (11.8-15.2) 01/02/17 15:17 Hct 44.5 % (35.5-45.6) 01/02/17 15:17 MCV 91 fl (84-94) 01/02/17 15:17 MCH 28 pg (28-32) 01/02/17 15:17 MCHC 31 % (32-34) L 01/02/17 15:17 RDW 17.5 % (13.2-15.2) H 01/02/17 15:17 Plt Count 171 K/mm3 (140-440) 01/02/17 15:17 Lymph # [facility] 12/31/16 16:25 Add Manual Diff Complete 01/02/17 15:17 Total Counted 100 01/02/17 15:17 Seg Neutrophils % [facility] 12/31/16 16:25 Seg Neuts % (Manual) 52.0 % (40.0-70.0) 01/02/17 15:17 Band Neutrophils % 19.0 % 01/02/17 15:17 Lymphocytes % (Manual) 2.0 % (13.4-35.0) L 01/02/17 15:17 Reactive Lymphs % (Man) 0 % 01/02/17 15:17 Monocytes % (Manual) 15.0 % (0.0-7.3) H 01/02/17 15:17 Eosinophils % (Manual) 0 % (0.0-4.3) 01/02/17 15:17 Basophils % (Manual) 0 % (0.0-1.8) 01/02/17 15:17 Metamyelocytes % 8.0 % 01/02/17 15:17 Myelocytes % 4.0 % 01/02/17 15:17 Promyelocytes % 0 % 01/02/17 15:17 Blast Cells % 0 % 01/02/17 15:17 Nucleated RBC % Not Reportable 01/02/17 15:17 Seg Neutrophils # Man 81.6 K/mm3 (1.8-7.7) H 01/02/17 15:17 Band Neutrophils # 29.8 K/mm3 01/02/17 15:17 Lymphocytes # (Manual) 3.1 K/mm3 (1.2-5.4) 01/02/17 15:17 Abs React Lymphs (Man) 0.0 K/mm3 01/02/17 15:17 Monocytes # (Manual) 23.5 K/mm3 (0.0-0.8) H 01/02/17 15:17 Eosinophils # (Manual) 0.0 K/mm3 (0.0-0.4) 01/02/17 15:17 Basophils # (Manual) 0.0 K/mm3 (0.0-0.1) 01/02/17 15:17 Metamyelocytes # 12.6 K/mm3 01/02/17 15:17 Myelocytes # 6.3 K/mm3 01/02/17 15:17 Promyelocytes # 0.0 K/mm3 01/02/17 15:17 Blast Cells # 0.0 K/mm3 01/02/17 15:17 Pathologist Review 12/30/16 11:25 WBC Morphology Not Reportable 01/02/17 15:17 Hypersegmented Neuts Not Reportable 01/02/17 15:17 Hyposegmented Neuts Not Reportable 01/02/17 15:17 Hypogranular Neuts Not Reportable 01/02/17 15:17 Smudge Cells Not Reportable 01/02/17 15:17 Toxic Granulation Not Reportable 01/02/17 15:17 Toxic Vacuolation Not Reportable 01/02/17 15:17 Dohle Bodies Not Reportable 01/02/17 15:17 Pelger-Huet Anomaly Not Reportable 01/02/17 15:17 Loree Rods Not Reportable 01/02/17 15:17 Platelet Estimate Consistent w auto 01/02/17 15:17 Clumped Platelets Not Reportable 01/02/17 15:17 Plt Clumps, EDTA Not Reportable 01/02/17 15:17 Large Platelets Not Reportable 01/02/17 15:17 Giant Platelets Not Reportable 01/02/17 15:17 Platelet Satelliting Not Reportable 01/02/17 15:17 Plt Morphology Comment Not Reportable 01/02/17 15:17 RBC Morphology Not Reportable 01/02/17 15:17 Dimorphic RBCs Not Reportable 01/02/17 15:17 Polychromasia Not Reportable 01/02/17 15:17 Hypochromasia Few 01/02/17 15:17 Poikilocytosis 1+ 01/02/17 15:17 Anisocytosis 1+ 01/02/17 15:17 Microcytosis Not Reportable 01/02/17 15:17 Macrocytosis Not Reportable 01/02/17 15:17 Spherocytes Not Reportable 01/02/17 15:17 Pappenheimer Bodies Not Reportable 01/02/17 15:17 Sickle Cells Not Reportable 01/02/17 15:17 Target Cells Not Reportable 01/02/17 15:17 Tear Drop Cells Not Reportable 01/02/17 15:17 Ovalocytes Not Reportable 01/02/17 15:17 Helmet Cells Not Reportable 01/02/17 15:17 [place] Bodies Not Reportable 01/02/17 15:17 [place] Rings Not Reportable 01/02/17 15:17 [place] Cells Not Reportable 01/02/17 15:17 Bite Cells Not Reportable 01/02/17 15:17 Crenated Cell Not Reportable 01/02/17 15:17 Elliptocytes Few 01/02/17 15:17 Acanthocytes (Spur) Not Reportable 01/02/17 15:17 Rouleaux Not Reportable 01/02/17 15:17 Hemoglobin C Crystals Not Reportable 01/02/17 15:17 Schistocytes Not Reportable 01/02/17 15:17 Malaria parasites Not Reportable 01/02/17 15:17 [place] Bodies Not Reportable 01/02/17 15:17 Hem Pathologist Commnt No 01/02/17 15:17 PT 15.0 Sec. (12.2-14.9) H 12/30/16 11:25 INR 1.19 (0.87-1.13) H 12/30/16 11:25 POC ABG pH 7.412 (7.35-7.45) 12/31/16 09:57 POC ABG pCO2 35.4 (35-45) 12/31/16 09:57 POC ABG pO2 62 (80-105) L 12/31/16 09:57 POC ABG HCO3 22.5 12/31/16 09:57 POC ABG Total CO2 24 12/31/16 09:57 POC ABG O2 Sat 92 12/31/16 09:57 POC ABG Base Excess -2 12/31/16 09:57 FiO2 21 % 12/31/16 09:57 Sodium 134 mmol/L (137-145) L 01/02/17 15:23 Potassium 5.3 mmol/L (3.6-5.0) H 01/02/17 15:23 Chloride 97.3 mmol/L (98-107) L 01/02/17 15:23 Carbon Dioxide 25 mmol/L (22-30) 01/02/17 15:23 Anion Gap 17 mmol/L 01/02/17 15:23 BUN 26 mg/dL (9-20) H 01/02/17 15:23 Creatinine 1.6 mg/dL (0.8-1.5) H 01/02/17 15:23 Estimated GFR 55 ml/min 01/02/17 15:23 BUN/Creatinine Ratio 16.25 % 01/02/17 15:23 Glucose 125 mg/dL (75-100) H 01/02/17 15:23 POC Glucose 128 (70-105) H 12/31/16 05:54 Hemoglobin A1c 6.0 % (4-6) 12/30/16 14:48 Uric Acid 5.0 mg/dL (3.5-7.6) 01/02/17 15:22 Calcium 8.4 mg/dL (8.4-10.2) 01/02/17 15:23 Phosphorus 3.4 mg/dL (2.5-4.5) 01/02/17 15:22 Total Bilirubin 0.3 mg/dL (0.1-1.2) 01/02/17 05:59 Direct Bilirubin < 0.2 mg/dL (0-0.2) 01/02/17 05:59 Indirect Bilirubin 0.1 mg/dL 01/02/17 05:59 AST 7 units/L (5-40) 12/31/16 05:07 ALT 6 units/L (7-56) L 12/31/16 05:07 Alkaline Phosphatase 50 units/L (35-129) 12/31/16 05:07 Lactate Dehydrogenase 433 units/L (91-180) H 01/02/17 15:22 Total Creatine Kinase 53 units/L (55-170) L 01/01/17 16:41 CK-MB (CK-2) 1.1 ng/mL (0.0-4.0) 01/01/17 16:41 CK-MB (CK-2) Rel Index 2.0 (0-4) 01/01/17 16:41 Troponin T < 0.010 ng/mL (0.00-0.029) 01/01/17 09:57 Total Protein 6.7 g/dL (6.3-8.2) 12/31/16 05:07 Albumin 3.8 g/dL (3.9-5) L 12/31/16 05:07 Albumin/Globulin Ratio 1.3 % 12/31/16 05:07 Urine Color Yellow (Yellow) 01/02/17 14:24 Urine Turbidity Clear (Clear) 01/02/17 14:24 Urine pH 6.0 (5.0-7.0) 01/02/17 14:24 Ur Specific [place] 1.014 (1.003-1.030) 01/02/17 14:24 Urine Protein <15 mg/dl mg/dL (Negative) 01/02/17 14:24 Urine Glucose (UA) Neg mg/dL (Negative) 01/02/17 14:24 Urine Ketones Neg mg/dL (Negative) 01/02/17 14:24 Urine Blood Neg (Negative) 01/02/17 14:24 Urine Nitrite Neg (Negative) 01/02/17 14:24 Urine Bilirubin Neg (Negative) 01/02/17 14:24 Urine Urobilinogen < 2.0 mg/dL (<2.0) 01/02/17 14:24 Ur Leukocyte Esterase Neg (Negative) 01/02/17 14:24 Urine WBC (Auto) 3.0 /HPF (0.0-6.0) 01/02/17 23:59 Urine RBC (Auto) 1.0 /HPF (0.0-6.0) 01/02/17 23:59 U Epithel Cells (Auto) < 1.0 /HPF (0-13.0) 01/02/17 23:59 Amorphous Crystals 1+ 01/02/17 23:59 Urine Creatinine 88.7 mg/dL (0.1-20.0) H 01/02/17 14:24 Protein/Creatinin Ratio 0.24 01/02/17 14:24 Urine Total Protein 21 mg/dL (5-11.8) H 01/02/17 14:24
[2017-01-03] MEDS ORDERED: KIONEX PO ONE (09:04)
[2017-01-03] MEDS ORDERED: LEXISCAN IV ONE ×2 (09:13→10:40)
--- NOTE | 2017-01-03 09:15 | Progress Note ---
Assessment and Plan 1. THALIA vs CKD No recent baseline CR available CR has been stable since admission at 1.6 Obtain urine studies, renal U/S for further work up Likely Differentials include prerenal azotemia, urate nephropathy He has NL uric acid level, normal phosphate, and calcium levels. LDH is elevated about 2 x the normal range. Continue to monitor closely for TLS Recommend aggressive IV hydration Agree with starting him on allupurinol/ will consider rasburicase F/u on labs today 2. Hyperkalemia potential causes in this patient include a. Volume depletion leading to decreased sodium delivery to distal tubule hence decreased K excretion b. Hemolysis c. Reverse pseudohyperkalemia -neoplastic WBC membranes could be sensitive to heparin used in test tubes. etc... 3. 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 COPD exacerbation management per primary team Subjective Date of service: 01/03/17 Interval history: For stress test today, No other new changes Objective - Vital Signs Vital signs: Vital Signs - 12hr 01/02/17 01/03/17 01/03/17 23:08 08:11 08:16 Temperature 98.3 F Pulse Rate [ 83 Anterior Bilateral Throughout] Pulse Rate [ 89 Left] Respiratory 20 Rate Blood Pressure 154/90 [Left Arm] O2 Sat by Pulse 100 97 Oximetry - General Appearance General appearance: well-developed, well-nourished, appears stated age EENT: PERRL, mucous membranes moist Neck: no JVD, no thyromegaly, no carotid bruit, supple Respiratory: Present: Clear to Ascultation, Other (no wheezing ) Cardiology: regular, normal heart rate, S1S2, no murmurs Gastrointestinal: normoactive bowel sounds, no tenderness Integumentary: no rash, warm and dry Neurologic: no focal deficit, alert and oriented x3, reflexes 2+ and symmetric, gait normal, strength 5/5 Musculoskeletal: no deformities, no erythema, no cyanosis, no clubbing - Lab 01/02/17 15:17 01/02/17 15:23 Most recent lab results Calcium 8.4 mg/dL (8.4-10.2) 01/02/17 15:23 Phosphorus 3.4 mg/dL (2.5-4.5) 01/02/17 15:22 Urine Creatinine 88.7 mg/dL (0.1-20.0) H 01/02/17 14:24 Urine Total Protein 21 mg/dL (5-11.8) H 01/02/17 14:24
[2017-01-03] MEDS: LEVAQUIN 750MG/150ML 750 MG/150 ML BAG IV SCH (09:42)
--- NOTE | 2017-01-03 10:03 | Ultrasound Report ---
ULTRASOUND RENAL BILATERAL HISTORY: Elevated creatinine level, renal insufficiency. TECHNIQUE: transabdominal ultrasound with color Doppler interrogation. FINDINGS: The right kidney measures 10.6 x 4.5 x 5.9cm. Right renal cortex: 1.1cm. The left kidney measures 10.6 x 5.3 x 6.1cm. Left renal cortex: 1.0cm. The kidneys are normal size, contour and position. There is increased renal parenchymal echotexture bilaterally. Corticomedullary differentiation is decreased. No evidence for cystic disease, mass, nephrolithiasis, hydronephrosis or perinephric fluid. The views of the bladder and the region of the ureters appear normal. IMPRESSION: Normal size but echogenic kidneys consistent with renal parenchymal disease. No focal renal lesion or obstruction.
[2017-01-03] MEDS: LOVENOX SUB-Q SCH (14:27)
[2017-01-03] MEDS: COLACE PO SCH ×2 (14:28→22:59)
[2017-01-03] MEDS: ZYLOPRIM PO SCH (14:28)
[2017-01-03] MEDS: HYDREA PO SCH (14:28)
[2017-01-03 14:31] LABS: BUN/Creatinine Ratio 14.37; Calcium 8.2 mg/dL (8.4-10.2); Chloride 100.8 mmol/L (98-107); Potassium 4.7 mmol/L (3.6-5.0)
--- NOTE | 2017-01-03 14:53 | Hem/Onc Progress Note ---
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 Subjective Date of service: 01/03/17 Objective - Constitutional Vitals: Last Vital Signs Temp 97.9 F 01/03/17 08:00 Pulse 98 H 01/03/17 12:15 Resp 20 01/03/17 08:00 BP 130/81 01/03/17 12:15 Pulse Ox 97 01/03/17 08:16 - Labs Lab Results: Laboratory Results - last 24 hr 01/02/17 01/02/17 01/02/17 14:24 14:24 15:17 WBC 156.9 H* RBC 4.90 Hgb 13.8 Hct 44.5 MCV 91 MCH 28 MCHC 31 L RDW 17.5 H Plt Count 171 Add Manual Diff Complete Total Counted 100 Seg Neuts % (Manual) 52.0 Band Neutrophils % 19.0 Lymphocytes % (Manual) 2.0 L Reactive Lymphs % (Man) 0 Monocytes % (Manual) 15.0 H Eosinophils % (Manual) 0 Basophils % (Manual) 0 Metamyelocytes % 8.0 Myelocytes % 4.0 Promyelocytes % 0 Blast Cells % 0 Nucleated RBC % Not Reportable Seg Neutrophils # Man 81.6 H Band Neutrophils # 29.8 Lymphocytes # (Manual) 3.1 Abs React Lymphs (Man) 0.0 Monocytes # (Manual) 23.5 H Eosinophils # (Manual) 0.0 Basophils # (Manual) 0.0 Metamyelocytes # 12.6 Myelocytes # 6.3 Promyelocytes # 0.0 Blast Cells # 0.0 WBC Morphology Not Reportable Hypersegmented Neuts Not Reportable Hyposegmented Neuts Not Reportable Hypogranular Neuts Not Reportable Smudge Cells Not Reportable Toxic Granulation Not Reportable Toxic Vacuolation Not Reportable Dohle Bodies Not Reportable Pelger-Huet Anomaly Not Reportable Loree Rods Not Reportable Platelet Estimate Consistent w auto Clumped Platelets Not Reportable Plt Clumps, EDTA Not Reportable Large Platelets Not Reportable Giant Platelets Not Reportable Platelet Satelliting Not Reportable Plt Morphology Comment Not Reportable RBC Morphology Not Reportable Dimorphic RBCs Not Reportable Polychromasia Not Reportable Hypochromasia Few Poikilocytosis 1+ Anisocytosis 1+ Microcytosis Not Reportable Macrocytosis Not Reportable Spherocytes Not Reportable Pappenheimer Bodies Not Reportable Sickle Cells Not Reportable Target Cells Not Reportable Tear Drop Cells Not Reportable Ovalocytes Not Reportable Helmet Cells Not Reportable [place] Bodies Not Reportable [place] Rings Not Reportable [place] Cells Not Reportable Bite Cells Not Reportable Crenated Cell Not Reportable Elliptocytes Few Acanthocytes (Spur) Not Reportable Rouleaux Not Reportable Hemoglobin C Crystals Not Reportable Schistocytes Not Reportable Malaria parasites Not Reportable [place] Bodies Not Reportable Hem Pathologist Commnt No Sodium Potassium Chloride Carbon Dioxide Anion Gap BUN Creatinine Estimated GFR BUN/Creatinine Ratio Glucose Uric Acid Calcium Phosphorus Lactate Dehydrogenase Urine Color Yellow Urine Turbidity Clear Urine pH 6.0 Ur Specific [place] 1.014 Urine Protein <15 mg/dl Urine Glucose (UA) Neg Urine Ketones Neg Urine Blood Neg Urine Nitrite Neg Urine Bilirubin Neg Urine Urobilinogen < 2.0 Ur Leukocyte Esterase Neg Urine WBC (Auto) 1.0 Urine RBC (Auto) 1.0 U Epithel Cells (Auto) 1.0 Amorphous Crystals Urine Creatinine 88.7 H Protein/Creatinin Ratio 0.24 Urine Total Protein 21 H 01/02/17 01/02/17 01/02/17 15:22 15:23 23:59 WBC RBC Hgb Hct MCV MCH MCHC RDW Plt Count Add Manual Diff Total Counted Seg Neuts % (Manual) Band Neutrophils % Lymphocytes % (Manual) Reactive Lymphs % (Man) Monocytes % (Manual) Eosinophils % (Manual) Basophils % (Manual) Metamyelocytes % Myelocytes % Promyelocytes % Blast Cells % Nucleated RBC % Seg Neutrophils # Man Band Neutrophils # Lymphocytes # (Manual) Abs React Lymphs (Man) Monocytes # (Manual) Eosinophils # (Manual) Basophils # (Manual) Metamyelocytes # Myelocytes # Promyelocytes # Blast Cells # WBC Morphology Hypersegmented Neuts Hyposegmented Neuts Hypogranular Neuts Smudge Cells Toxic Granulation Toxic Vacuolation Dohle Bodies Pelger-Huet Anomaly Loree Rods Platelet Estimate Clumped Platelets Plt Clumps, EDTA Large Platelets Giant Platelets Platelet Satelliting Plt Morphology Comment RBC Morphology Dimorphic RBCs Polychromasia Hypochromasia Poikilocytosis Anisocytosis Microcytosis Macrocytosis Spherocytes Pappenheimer Bodies Sickle Cells Target Cells Tear Drop Cells Ovalocytes Helmet Cells [place] Bodies [place] Rings Elidia Cells Bite Cells Crenated Cell Elliptocytes Acanthocytes (Spur) Rouleaux Hemoglobin C Crystals Schistocytes Malaria parasites [place] Bodies Hem Pathologist Commnt Sodium 134 L Potassium 5.3 H Chloride 97.3 L Carbon Dioxide 25 Anion Gap 17 BUN 26 H Creatinine 1.6 H Estimated GFR 55 BUN/Creatinine Ratio 16.25 Glucose 125 H Uric Acid 5.0 Calcium 8.4 Phosphorus 3.4 Lactate Dehydrogenase 433 H Urine Color Urine Turbidity Urine pH Ur Specific [place] Urine Protein Urine Glucose (UA) Urine Ketones Urine Blood Urine Nitrite Urine Bilirubin Urine Urobilinogen Ur Leukocyte Esterase Urine WBC (Auto) 3.0 Urine RBC (Auto) 1.0 U Epithel Cells (Auto) < 1.0 Amorphous Crystals 1+ Urine Creatinine Protein/Creatinin Ratio Urine Total Protein 01/03/17 13:56 WBC RBC Hgb Hct MCV MCH MCHC RDW Plt Count Add Manual Diff Total Counted Seg Neuts % (Manual) Band Neutrophils % Lymphocytes % (Manual) Reactive Lymphs % (Man) Monocytes % (Manual) Eosinophils % (Manual) Basophils % (Manual) Metamyelocytes % Myelocytes % Promyelocytes % Blast Cells % Nucleated RBC % Seg Neutrophils # Man Band Neutrophils # Lymphocytes # (Manual) Abs React Lymphs (Man) Monocytes # (Manual) Eosinophils # (Manual) Basophils # (Manual) Metamyelocytes # Myelocytes # Promyelocytes # Blast Cells # WBC Morphology Hypersegmented Neuts Hyposegmented Neuts Hypogranular Neuts Smudge Cells Toxic Granulation Toxic Vacuolation Dohle Bodies Pelger-Huet Anomaly Loree Rods Platelet Estimate Clumped Platelets Plt Clumps, EDTA Large Platelets Giant Platelets Platelet Satelliting Plt Morphology Comment RBC Morphology Dimorphic RBCs Polychromasia Hypochromasia Poikilocytosis Anisocytosis Microcytosis Macrocytosis Spherocytes Pappenheimer Bodies Sickle Cells Target Cells Tear Drop Cells Ovalocytes Helmet Cells [place] Bodies [place] Rings [place] Cells Bite Cells Crenated Cell Elliptocytes Acanthocytes (Spur) Rouleaux Hemoglobin C Crystals Schistocytes Malaria parasites [place] Bodies Hem Pathologist Commnt Sodium 137 Potassium 4.7 Chloride 100.8 Carbon Dioxide 24 Anion Gap 17 BUN 23 H Creatinine 1.6 H Estimated GFR 55 BUN/Creatinine Ratio 14.37 Glucose 127 H Uric Acid Calcium 8.2 L Phosphorus Lactate Dehydrogenase Urine Color Urine Turbidity Urine pH Ur Specific [place] Urine Protein Urine Glucose (UA) Urine Ketones Urine Blood Urine Nitrite Urine Bilirubin Urine Urobilinogen Ur Leukocyte Esterase Urine WBC (Auto) Urine RBC (Auto) U Epithel Cells (Auto) Amorphous Crystals Urine Creatinine Protein/Creatinin Ratio Urine Total Protein
[2017-01-03 15:18] LABS: Mean Corpuscular HGB Conc 31 % (32-34); Mean Corpuscular Hemoglobin 27 pg (28-32); Mean Corpuscular Volume 89 fl (84-94); Platelet Count 111 K/mm3 (140-440); Red Blood Count 5.17 M/mm3 (3.65-5.03); Red Cell Distribution Width 17.7 % (13.2-15.2)
[2017-01-03 15:34] LABS: Hematocrit 46.2 % (35.5-45.6); Hemoglobin 14.2 gm/dl (11.8-15.2); White Blood Count 130.1 K/mm3 (4.5-11.0)
[2017-01-03 15:36] LABS: Calcium 8.2 mg/dL (8.4-10.2); Chloride 99.7 mmol/L (98-107); Potassium 4.9 mmol/L (3.6-5.0)
[2017-01-03 15:39] LABS: Phosphorous 3.7 mg/dL (2.5-4.5); Uric Acid 5.2 mg/dL (3.5-7.6)
--- NOTE | 2017-01-03 15:55 | Consultation ---
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) , COPD Past Surgical History: No surgical history Social history: single, other (homeless; history of smoking; history of crack use (not using either now)) Family history: hypertension Medications and Allergies Allergies Allergy/AdvReac Type Severity Reaction Status Date / Time No Known Allergies Allergy Unverified 09/22/13 16:54 Home Medications Medication Instructions Recorded Confirmed Last Taken Type Albuterol Sulfate [Proventil HFA] 2 puff INHALATION Q4HR PRN #1 10/05/13 Unknown Rx hfa.[email or web address].[email or web address] Albuterol Sulfate [Albuterol 0.63% 0.63 mg IH TID PRN 12/30/16 12/30/16 Unknown History NEBS] Fluticasone/Salmeterol [Advair 1 puff IH BID 12/30/16 12/30/16 Unknown History Diskus 500-50 mcg] Guaifenesin/Codeine Phosphate 5 ml PO Q6H PRN 12/30/16 12/30/16 Unknown History [Guaifenesin-Codeine Syrup] Ibuprofen [Motrin 800 MG tab] 800 mg PO Q8H PRN 12/30/16 12/30/16 Unknown History Active Meds: Active Medications Acetaminophen (Tylenol) 650 mg PO Q4H PRN PRN Reason: Pain MILD(1-3)/Fever >100.5/STUART Last Admin: 01/01/17 14:11 Dose: 650 mg Albuterol (Proventil) 2.5 mg IH Q3HRT PRN PRN Reason: Shortness Of Breath Albuterol/Ipratropium (Duoneb 0.5 Mg-3 Mg/3 Ml Soln) 1 ampul IH Q6HRT [facility] Last Admin: 01/03/17 08:10 Dose: 1 ampul Allopurinol (Zyloprim) 300 mg PO QDAY [facility] Last Admin: 01/03/17 14:28 Dose: 300 mg Arformoterol Tartrate (Brovana Nebu) 15 mcg IH Q12HRT [facility] Last Admin: 01/03/17 08:10 Dose: 15 mcg Bisacodyl (Dulcolax) 10 mg [place] QDAY PRN PRN Reason: Constipation unrelieved by MOM Last Admin: 01/01/17 22:44 Dose: 10 mg Budesonide (Pulmicort) 1 mg IH Q12HRT [facility] Last Admin: 01/03/17 08:10 Dose: 1 mg Docusate Sodium (Colace) 100 mg PO BID [facility] Last Admin: 01/03/17 14:28 Dose: 100 mg Enoxaparin Sodium (Lovenox) 40 mg SUB-Q QDAY@1000 [facility] Last Admin: 01/03/17 14:27 Dose: 40 mg Hydromorphone HCl (Dilaudid) 0.5 mg IV Q3H PRN PRN Reason: Pain , Severe (7-10) Last Admin: 12/31/16 06:40 Dose: 0.5 mg Hydroxyurea (Hydrea) 1,500 mg PO QDAY [facility] Last Admin: 01/03/17 14:28 Dose: 1,500 mg Levofloxacin/Dextrose (Levaquin 750mg/150ml) 750 mg in 150 mls @ 100 mls/hr IV Q24HR [facility] PRN Reason: Protocol Last Admin: 01/03/17 09:42 Dose: 100 mls/hr Sodium Chloride (Nacl 0.9% 1000 Ml) 1,000 mls @ 150 mls/hr IV DIRECT [facility] Last Admin: 01/03/17 15:16 Dose: 75 mls/hr Sodium Chloride (Nacl 0.9% 1000 Ml) 1,000 mls @ 125 mls/hr IV DIRECT [facility] Lactulose (Cephulac) 20 gm PO Q6H PRN PRN Reason: Constipation Last Admin: 01/02/17 19:10 Dose: 20 gm Magnesium Hydroxide (Milk Of Magnesia) 30 ml PO Q4H PRN PRN Reason: Constipation Methylprednisolone Sodium Succinate (Solu-Medrol) 40 mg IV Q12HR [facility] Last Admin: 01/03/17 09:43 Dose: 40 mg Ondansetron HCl (Zofran) 4 mg IV Q6H PRN PRN Reason: Nausea And Vomiting Oxycodone/Acetaminophen (Percocet 5/325) 1 tab PO Q6H PRN PRN Reason: Pain, Moderate (4-6) Last Admin: 01/02/17 19:10 Dose: 1 tab Pseudoephedrine/Acetam/Chlorphenir (Robitussin Ac) 5 ml PO Q6H PRN PRN Reason: Cough Last Admin: 01/01/17 19:11 Dose: 5 ml Zolpidem Tartrate (Ambien) 5 mg PO QHS PRN PRN Reason: Insomnia Physical Examination Vital Signs Temp Pulse Resp BP Pulse Ox 98.2 F 113 H 32 H 150/98 94 12/30/16 10:27 12/30/16 10:27 12/30/16 10:27 12/30/16 10:27 12/30/16 10:27 Results 01/03/17 15:03 01/03/17 15:08 Cardiac Enzymes 01/02/17 01/03/17 Range/Units 15:22 15:09 Lactate Dehydrogenase 433 H 417 H (91-180) units/L CBC 01/03/17 Range/Units 15:03 WBC 130.1 H* (4.5-11.0) K/mm3 RBC 5.17 H (3.65-5.03) M/mm3 Hgb 14.2 (11.8-15.2) gm/dl Hct 46.2 H (35.5-45.6) % Plt Count 111 L (140-440) K/mm3 Comprehensive Metabolic Panel 01/03/17 01/03/17 Range/Units 13:56 15:08 Sodium 137 137 (137-145) mmol/L Potassium 4.7 4.9 (3.6-5.0) mmol/L Chloride 100.8 99.7 (98-107) mmol/L Carbon Dioxide 24 25 (22-30) mmol/L BUN 23 H 24 H (9-20) mg/dL Creatinine 1.6 H 1.6 H (0.8-1.5) mg/dL Glucose 127 H 174 H (75-100) mg/dL Calcium 8.2 L 8.2 L (8.4-10.2) mg/dL Assessment and Plan Detailed Cardiology consult dictated.
[2017-01-03 17:40] LABS: Basophils % (Manual) 0 % (0.0-1.8); Blastocytes % (Manual) 0 %; Eosinophils % (Manual) 0 % (0.0-4.3)
[2017-01-03 17:41] LABS: Anisocytosis 1+; Platelet Estimate Consistent w Auto; Poikilocytosis 1+
[2017-01-03 17:42] LABS: Diff Status Complete; Elliptocytes Few
[2017-01-03] MEDS: TYLENOL PO PRN (19:54)
--- NOTE | 2017-01-03 21:43 | Treadmill Report ---
PROCEDURE: Single isotope-dual study myocardial perfusion scan. REFERRING PHYSICIAN: Yordan Casey MD DESCRIPTION OF PROCEDURE: The patient received 10 mCi of technetium 99m Myoview intravenously under resting condition. Resting myocardial perfusion scan was done. Subsequently, the patient underwent Lexiscan stress test as per the protocol. During Lexiscan stress, the patient received 28 mCi of technetium 99m Myoview intravenously. After 30-60 minutes, post stress images were done. Computerized reconstruction images were performed for analysis. The post-stress images revealed a small distal inferior wall perfusion defect. Gated study revealed mild mid inferior wall hypokinesia. The left ventricular ejection fraction was low normal and was calculated to be 53%. The resting images revealed partial reversibility of the perfusion defect seen in the stress images. CONCLUSION: 1. Small mild partially reversible distal inferior wall perfusion defect. 2. Mild mid inferior wall hypokinesia. 3. Low normal left ventricular systolic function with LVEF around 53%. JOB# [id number] [facility]
[2017-01-04] MEDS: NACL 0.9% 1000 ML 1,000 ML IV SCH ×2 (01:12→09:39)
[2017-01-04] MEDS: DUONEB 0.5 MG-3 MG/3 ML SOLN IH SCH ×2 (01:53→07:50)
--- NOTE | 2017-01-04 02:06 | Consultation ---
REFERRING PHYSICIAN: Yordan Casey MD TIME: 3:29 p.m. HISTORY OF PRESENT ILLNESS: A 51-year-old pleasant -[place] gentleman with a history of chronic myeloid leukemia (atypical type), history of COPD, CKD, was admitted with generalized body pain and also pain over the legs and arms and joints. He also gives a history of left-sided tightness-like chest pain, moderate to severe in intensity, at rest, sometimes on exertion, radiating to the left arm. He also gives history of shortness of breath on moderate exertion (NYHA class 2 symptoms). Occasionally he has orthopnea. Serial troponins are negative and myocardial infarction was ruled out. Also, gives history of cough with whitish expectoration for the past 2-3 weeks. He is on intravenous Levaquin. No history of hypertension, diabetes mellitus. No history of hyperlipidemia. The patient underwent Lexiscan stress myocardial scan today. He did not have any chest pain during the stress test. The EKG did not reveal any evidence of ischemia. However, the myocardial perfusion scan revealed small mild partially reversible distal inferior wall perfusion defect. The LVEF was low normal and was calculated to be 53%. Mild to mid inferior wall hypokinesia was also seen by gated study. Hence, Cardiology consultation was requested. PAST MEDICAL HISTORY: History of multiple medical problems as described above. No history of CAD or myocardial infarction in the past. No history of CHF in the past, history of COPD, cigarette smoking in the past, history of CKD. SOCIAL HISTORY: He was a chronic smoker and he quit smoking 10 years ago. Before that used to smoke half a pack of cigarettes per day for about 7 years. Occasionally, takes alcohol. No history of drug abuse. FAMILY HISTORY: Negative for premature coronary artery disease. REVIEW OF SYSTEMS: CARDIOVASCULAR: As described in the history. PULMONARY: As described in the history. HEMATOPOIETIC SYSTEM: As described in the history. RENAL: As described in the history. Review of rest of the 10 systems is negative. MEDICATIONS: DuoNeb inhaler q.6 hours, allopurinol 300 mg p.o. daily, Brovana every 12 hours, Pulmicort every 12 hours, Lovenox 40 mg subq daily, hydroxyurea 1.5 g p.o. daily, lactulose 20 mg p.o. q.6 hours p.r.n., IV Levaquin in 750 mg daily, methyl prednisone 40 mg IV q. 12 hours. PHYSICAL EXAMINATION: GENERAL: A 51-year-old pleasant -[place] gentleman. He is afebrile. VITAL SIGNS: Pulse is 98 per minute and regular, blood pressure 130/81 mmHg, respirations 18 per minute. NEUROLOGIC: He is alert and oriented x 3. HEENT: Negative. NECK: Supple, no JVD, no bruit, no thyromegaly. HEART: PMI, and is normal. No palpable thrills ____ heart sounds. Auscultation of heart reveals S1, S2, regular. S2 is rather loud. Grade 1/6 harsh ejection systolic murmur is heard all over the precardium. No rub. EXTREMITIES: Peripheral pulses felt. No edema. LUNGS: Bilateral air entry good and equal. No bronchial breathing, no wheezing. ABDOMEN: Soft, benign. No organomegaly. SKIN: Negative. BONE AND JOINTS: Negative. At this time, he is on 2 liters of O2 by nasal cannula. LABORATORY DATA: Potassium normal, BUN and creatinine 23 and 1.6. LDH increased to 433, BUN 23, creatinine 1.6, serum albumin 3.8, calcium 8.2. Cardiac enzymes as described in the history. WBC 157,000, hemoglobin, hematocrit and platelet count within normal limits. Chest x-ray, one view, chronic interstitial lung markings, no acute findings. EKG on 01/01/2017 revealed normal sinus rhythm, biatrial enlargement, borderline EKG. Lexiscan stress myocardial scan findings as described in the history. IMPRESSION: 1. Left-sided chest pains, myocardial infarction ruled out. 2. Generalized body and joint pains. 3. Chronic myeloid leukemia (atypical type). 4. Chronic kidney disease. 5. Acute exacerbation of chronic obstructive pulmonary disease. 6. Mildly abnormal stress nuclear scan. 7. Chronic kidney disease. 8. Hemolysis. 9. Possible bronchitis. RECOMMENDATIONS: The myocardial scan is mildly abnormal. The partially reversible distal inferior wall perfusion defect could also be an artifact. I have ordered for a fasting lipid panel and an echocardiogram for further cardiac evaluation. Thank you again, we will follow. JOB# [id number] [facility]
[2017-01-04 05:37] LABS: Mean Corpuscular HGB Conc 30 % (32-34); Mean Corpuscular Hemoglobin 27 pg (28-32); Mean Corpuscular Volume 90 fl (84-94); Platelet Count 109 K/mm3 (140-440); Red Blood Count 4.91 M/mm3 (3.65-5.03); Red Cell Distribution Width 17.9 % (13.2-15.2)
[2017-01-04 06:01] LABS: Hematocrit 44.2 % (35.5-45.6); Hemoglobin 13.1 gm/dl (11.8-15.2); White Blood Count 120.8 K/mm3 (4.5-11.0)
[2017-01-04 06:13] LABS: Anion Gap 19 mmol/L; BUN/Creatinine Ratio 16.15; Blood Urea Nitrogen 21 mg/dL (9-20); Calcium 7.9 mg/dL (8.4-10.2); Carbon Dioxide 22 mmol/L (22-30); Chloride 103.5 mmol/L (98-107); Glucose 147 mg/dL (75-100); Potassium 4.8 mmol/L (3.6-5.0); Sodium 140 mmol/L (137-145)
[2017-01-04 06:34] LABS: Uric Acid 4.5 mg/dL (3.5-7.6)
[2017-01-04] MEDS: BROVANA NEBU IH SCH (07:50)
[2017-01-04] MEDS: PULMICORT IH SCH (07:51)
[2017-01-04 08:44] LABS: Basophils % (Manual) 0 % (0.0-1.8); Blastocytes % (Manual) 0 %
[2017-01-04 08:45] LABS: Anisocytosis 1+; Eosinophils % (Manual) 2 % (0.0-4.3); Poikilocytosis 1+; Polychromasia Few
[2017-01-04 08:46] LABS: Diff Status Complete
--- NOTE | 2017-01-04 09:38 | Progress Note ---
Assessment and Plan 1. THALIA vs CKD No recent baseline CR available CR improving with IVF, 1.3 today Urine studies reviewed. It showed no protein or blood. Renal U/S showed normal size kidneys with no hydronephrosis. There is increased echogenecity suggesting CKD. He has NL uric acid level, normal phosphate, and calcium levels. LDH is mildly elevated. Continue to monitor closely for TLS Continue IVF, encourgaed on oral hydration Continue allupurinol/ will consider rasburicase 2. Hyperkalemia potential causes in this patient include a. Volume depletion leading to decreased sodium delivery to distal tubule hence decreased K excretion b. Hemolysis c. Reverse pseudohyperkalemia -neoplastic WBC membranes could be sensitive to heparin used in test tubes. etc... Hyperkalemia improving Low K diet 3. 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 COPD exacerbation management per primary team Subjective Date of service: 01/04/17 Interval history: No new events. No CP. +SOB Objective - Vital Signs Vital signs: Vital Signs - 12hr 01/03/17 01/04/17 01/04/17 22:00 00:13 08:06 Temperature 98.7 F 97.6 F Pulse Rate [ 74 Apical] Pulse Rate [ 83 Left] Respiratory 18 20 18 Rate Respiratory 18 Rate [Back] Respiratory 18 Rate [Chest] Respiratory 18 Rate [Head] Blood Pressure 125/74 123/78 [Left Arm] O2 Sat by Pulse 97 97 Oximetry - General Appearance General appearance: well-developed, well-nourished, appears stated age EENT: PERRL, mucous membranes moist Neck: no JVD, no thyromegaly, no carotid bruit, supple Respiratory: Present: Clear to Ascultation, Other (no wheezing ) Cardiology: regular, normal heart rate, S1S2, no murmurs Gastrointestinal: normoactive bowel sounds, no tenderness Integumentary: no rash, warm and dry Neurologic: no focal deficit, alert and oriented x3, reflexes 2+ and symmetric, gait normal, strength 5/5 Musculoskeletal: no deformities, no erythema, no cyanosis, no clubbing Psychiatric: mood/affect appropriate, cooperative - Lab 01/04/17 04:34 01/04/17 04:34 Most recent lab results Calcium 7.9 mg/dL (8.4-10.2) L 01/04/17 04:34 Phosphorus 3.7 mg/dL (2.5-4.5) 01/03/17 15:09 Urine Creatinine 88.7 mg/dL (0.1-20.0) H 01/02/17 14:24 Urine Total Protein 21 mg/dL (5-11.8) H 01/02/17 14:24
[2017-01-04] MEDS: HYDREA PO SCH (09:40)
[2017-01-04] MEDS: LOVENOX SUB-Q SCH (09:41)
[2017-01-04] MEDS: COLACE PO SCH (09:41)
[2017-01-04] MEDS: ZYLOPRIM PO SCH (09:41)
[2017-01-04] MEDS ORDERED: LEVAQUIN PO SCH (10:00)
--- NOTE | 2017-01-04 10:25 | Progress Note ---
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 ED with SOB, CP and productive cough. He was found to have copd exacerbation and extreme leukocytosis. He was hypoxic and placed on NIPPV, which worked and he was transitioned to nasal canula. He was also in ARF due to vasomotor nephropathy, poa. To evaluate the cp, a Lexiscan Stress test showed small mild partially reversible distal inferior wall perfusion defect, mild mid inferior wall hypokinesia and low normal LVEF around 53%. He was evaluated by Cardiology ( [facility]) and ECHO has been ordered. -CML, worsening chronic condition now with hypoxemia -Acute respiratory failure with hypoxia -Acute COPD exacerbation -Acute renal failure, resolved -Thrombocytopenia related to see male -Tobacco dependency: Counseling to stop -DVT prophylaxis: SCDs and subcutaneous Lovenox -Disposition: If 2D echocardiogram is unremarkable and cleared by cardiology and off oxygen then he can be discharged today, follow up outpatient with hematology History Interval history: Patient seen and examined. Follow up on shortness of breath. Overnight uneventful. No cp, sob, n/v or severe headaches. Imaging, old records, testing, labs, nursing notes reviewed. Plan discussed with patient. Hospitalist Physical - Physical exam Narrative exam: GEN: WDWN, NAD, AWAKE, ALERT, ORIENTATED 3 HEENT: NCAT, PERRL, EOMI, OP CLEAR NECK: SUPPLE, NO THYROMEGALY, NO JVD, NO LAD CVS: RRR, NORMAL S1S2 LUNGS/CHEST: CTA B, NORMAL CHEST EXPANSION B, GOOD AIR ENTRY B ABD: SOFT NTND, GBS, NO REBOUND OR GUARDING EXT/SKIN: NO SIGNIFICANT EDEMA OR RASH MSK: FROM X 4 EXTREMITIES NEURO: CN 2-12 GROSSLY INTACT, NO new FOCAL DEFICITS PSY: CALM - Constitutional Vitals: Temp Pulse Resp BP Pulse Ox 97.6 F 74 18 123/78 97 01/04/17 08:06 01/04/17 08:06 01/04/17 08:06 01/04/17 08:06 01/04/17 08:06 General appearance: Present: other (using O2 NC) Results - Labs CBC & Chem 7: 01/04/17 04:34 01/04/17 04:34 Labs: Laboratory Last Values WBC 120.8 K/mm3 (4.5-11.0) H* 01/04/17 04:34 RBC 4.91 M/mm3 (3.65-5.03) 01/04/17 04:34 Hgb 13.1 gm/dl (11.8-15.2) 01/04/17 04:34 Hct 44.2 % (35.5-45.6) 01/04/17 04:34 MCV 90 fl (84-94) 01/04/17 04:34 MCH 27 pg (28-32) L 01/04/17 04:34 MCHC 30 % (32-34) L 01/04/17 04:34 RDW 17.9 % (13.2-15.2) H 01/04/17 04:34 Plt Count 109 K/mm3 (140-440) L 01/04/17 04:34 Lymph # Event Specialist Product Demonstrator 12/31/16 16:25 Add Manual Diff Complete 01/04/17 04:34 Total Counted 100 01/04/17 04:34 Seg Neutrophils % Event Specialist Product Demonstrator 01/03/17 15:03 Seg Neuts % (Manual) 24 % (40.0-70.0) L 01/04/17 04:34 Band Neutrophils % 22.0 % 01/04/17 04:34 Lymphocytes % (Manual) 15.0 % (13.4-35.0) 01/04/17 04:34 Reactive Lymphs % (Man) 0 % 01/04/17 04:34 Monocytes % (Manual) 0 % (0.0-7.3) 01/04/17 04:34 Eosinophils % (Manual) 2 % (0.0-4.3) 01/04/17 04:34 Basophils % (Manual) 0 % (0.0-1.8) 01/04/17 04:34 Metamyelocytes % 20.0 % 01/04/17 04:34 Myelocytes % 9.0 % 01/04/17 04:34 Promyelocytes % 8.0 % 01/04/17 04:34 Blast Cells % 0 % 01/04/17 04:34 Nucleated RBC % 4.0 % (0.0-0.9) H 01/04/17 04:34 Seg Neutrophils # Man 19.3 K/mm3 (1.8-7.7) H 01/04/17 04:34 Band Neutrophils # 26.6 K/mm3 01/04/17 04:34 Lymphocytes # (Manual) 18.1 K/mm3 (1.2-5.4) H 01/04/17 04:34 Abs React Lymphs (Man) 0.0 K/mm3 01/04/17 04:34 Monocytes # (Manual) 0.0 K/mm3 (0.0-0.8) 01/04/17 04:34 Eosinophils # (Manual) 12.1 K/mm3 (0.0-0.4) H 01/04/17 04:34 Basophils # (Manual) 0.0 K/mm3 (0.0-0.1) 01/04/17 04:34 Metamyelocytes # 24.2 K/mm3 01/04/17 04:34 Myelocytes # 10.9 K/mm3 01/04/17 04:34 Promyelocytes # 9.7 K/mm3 01/04/17 04:34 Blast Cells # 0.0 K/mm3 01/04/17 04:34 Pathologist Review 12/30/16 11:25 WBC Morphology Not Reportable 01/04/17 04:34 Hypersegmented Neuts Not Reportable 01/04/17 04:34 Hyposegmented Neuts Not Reportable 01/04/17 04:34 Hypogranular Neuts Not Reportable 01/04/17 04:34 Smudge Cells Not Reportable 01/04/17 04:34 Toxic Granulation Not Reportable 01/04/17 04:34 Toxic Vacuolation Not Reportable 01/04/17 04:34 Dohle Bodies Not Reportable 01/04/17 04:34 Pelger-Huet Anomaly Not Reportable 01/04/17 04:34 Loree Rods Not Reportable 01/04/17 04:34 Platelet Estimate Not Reportable 01/04/17 04:34 Clumped Platelets Not Reportable 01/04/17 04:34 Plt Clumps, EDTA Not Reportable 01/04/17 04:34 Large Platelets Not Reportable 01/04/17 04:34 Giant Platelets Not Reportable 01/04/17 04:34 Platelet Satelliting Not Reportable 01/04/17 04:34 Plt Morphology Comment Not Reportable 01/04/17 04:34 RBC Morphology Not Reportable 01/04/17 04:34 Dimorphic RBCs Not Reportable 01/04/17 04:34 Polychromasia Few 01/04/17 04:34 Hypochromasia Not Reportable 01/04/17 04:34 Poikilocytosis 1+ 01/04/17 04:34 Anisocytosis 1+ 01/04/17 04:34 Microcytosis Not Reportable 01/04/17 04:34 Macrocytosis Not Reportable 01/04/17 04:34 Spherocytes Not Reportable 01/04/17 04:34 Pappenheimer Bodies Not Reportable 01/04/17 04:34 Sickle Cells Not Reportable 01/04/17 04:34 Target Cells Not Reportable 01/04/17 04:34 Tear Drop Cells Not Reportable 01/04/17 04:34 Ovalocytes Not Reportable 01/04/17 04:34 Helmet Cells Not Reportable 01/04/17 04:34 Renner-Barnes Bodies Not Reportable 01/04/17 04:34 Tie Siding Rings Not Reportable 01/04/17 04:34 [place] Cells Not Reportable 01/04/17 04:34 Bite Cells Not Reportable 01/04/17 04:34 Crenated Cell Not Reportable 01/04/17 04:34 Elliptocytes Not Reportable 01/04/17 04:34 Acanthocytes (Spur) Not Reportable 01/04/17 04:34 Rouleaux Not Reportable 01/04/17 04:34 Hemoglobin C Crystals Not Reportable 01/04/17 04:34 Schistocytes Not Reportable 01/04/17 04:34 Malaria parasites Not Reportable 01/04/17 04:34 [place] Bodies Not Reportable 01/04/17 04:34 Hem Pathologist Commnt No 01/04/17 04:34 PT 15.0 Sec. (12.2-14.9) H 12/30/16 11:25 INR 1.19 (0.87-1.13) H 12/30/16 11:25 POC ABG pH 7.412 (7.35-7.45) 12/31/16 09:57 POC ABG pCO2 35.4 (35-45) 12/31/16 09:57 POC ABG pO2 62 (80-105) L 12/31/16 09:57 POC ABG HCO3 22.5 12/31/16 09:57 POC ABG Total CO2 24 12/31/16 09:57 POC ABG O2 Sat 92 12/31/16 09:57 POC ABG Base Excess -2 12/31/16 09:57 FiO2 21 % 12/31/16 09:57 Sodium 140 mmol/L (137-145) 01/04/17 04:34 Potassium 4.8 mmol/L (3.6-5.0) 01/04/17 04:34 Chloride 103.5 mmol/L (98-107) 01/04/17 04:34 Carbon Dioxide 22 mmol/L (22-30) 01/04/17 04:34 Anion Gap 19 mmol/L 01/04/17 04:34 BUN 21 mg/dL (9-20) H 01/04/17 04:34 Creatinine 1.3 mg/dL (0.8-1.5) 01/04/17 04:34 Estimated GFR > 60 ml/min 01/04/17 04:34 BUN/Creatinine Ratio 16.15 % 01/04/17 04:34 Glucose 147 mg/dL (75-100) H 01/04/17 04:34 POC Glucose 128 (70-105) H 12/31/16 05:54 Hemoglobin A1c 6.0 % (4-6) 12/30/16 14:48 Uric Acid 4.5 mg/dL (3.5-7.6) 01/04/17 04:34 Calcium 7.9 mg/dL (8.4-10.2) L 01/04/17 04:34 Phosphorus 3.7 mg/dL (2.5-4.5) 01/03/17 15:09 Total Bilirubin 0.3 mg/dL (0.1-1.2) 01/02/17 05:59 Direct Bilirubin < 0.2 mg/dL (0-0.2) 01/02/17 05:59 Indirect Bilirubin 0.1 mg/dL 01/02/17 05:59 AST 7 units/L (5-40) 12/31/16 05:07 ALT 6 units/L (7-56) L 12/31/16 05:07 Alkaline Phosphatase 50 units/L (35-129) 12/31/16 05:07 Lactate Dehydrogenase 384 units/L (91-180) H 01/04/17 04:34 Total Creatine Kinase 53 units/L (55-170) L 01/01/17 16:41 CK-MB (CK-2) 1.1 ng/mL (0.0-4.0) 01/01/17 16:41 CK-MB (CK-2) Rel Index 2.0 (0-4) 01/01/17 16:41 Troponin T < 0.010 ng/mL (0.00-0.029) 01/01/17 09:57 Total Protein 6.7 g/dL (6.3-8.2) 12/31/16 05:07 Albumin 3.8 g/dL (3.9-5) L 12/31/16 05:07 Albumin/Globulin Ratio 1.3 % 12/31/16 05:07 Triglycerides 62 mg/dL (2-149) 01/04/17 04:34 Cholesterol 83 mg/dL (50-199) 01/04/17 04:34 LDL Cholesterol Direct 33 mg/dL (50-130) L 01/04/17 04:34 HDL Cholesterol 38 mg/dL (40-59) L 01/04/17 04:34 Cholesterol/HDL Ratio 2.18 % 01/04/17 04:34 Urine Color Yellow (Yellow) 01/02/17 14:24 Urine Turbidity Clear (Clear) 01/02/17 14:24 Urine pH 6.0 (5.0-7.0) 01/02/17 14:24 Ur Specific [place] 1.014 (1.003-1.030) 01/02/17 14:24 Urine Protein <15 mg/dl mg/dL (Negative) 01/02/17 14:24 Urine Glucose (UA) Neg mg/dL (Negative) 01/02/17 14:24 Urine Ketones Neg mg/dL (Negative) 01/02/17 14:24 Urine Blood Neg (Negative) 01/02/17 14:24 Urine Nitrite Neg (Negative) 01/02/17 14:24 Urine Bilirubin Neg (Negative) 01/02/17 14:24 Urine Urobilinogen < 2.0 mg/dL (<2.0) 01/02/17 14:24 Ur Leukocyte Esterase Neg (Negative) 01/02/17 14:24 Urine WBC (Auto) 3.0 /HPF (0.0-6.0) 01/02/17 23:59 Urine RBC (Auto) 1.0 /HPF (0.0-6.0) 01/02/17 23:59 U Epithel Cells (Auto) < 1.0 /HPF (0-13.0) 01/02/17 23:59 Amorphous Crystals 1+ 01/02/17 23:59 Urine Creatinine 88.7 mg/dL (0.1-20.0) H 01/02/17 14:24 Protein/Creatinin Ratio 0.24 01/02/17 14:24 Urine Total Protein 21 mg/dL (5-11.8) H 01/02/17 14:24 - Imaging and Cardiology Chest x-ray: report reviewed
--- NOTE | 2017-01-04 10:36 | Discharge Summary ---
Providers - Providers Date of Admission: 12/30/16 14:24 Attending physician: TD TAMAYO 12/30/16 14:26 Consult to Physician [CONS] Routine Consulting Provider: GALA MALDONADO Reason For Exam: CML Place consult to:: DR. MALDONADO Notified:: DR. MALDONADO Phone number called:: [phone] Was contact made?: Yes If yes, spoke with:: IDALIA Time called:: 16:41 Comment:: JYOTSNA NORRIS 01/02/17 07:22 Consult to Physician [CONS] Routine Consulting Provider: PATRICA CANNON Reason For Exam: rosalee, hx of CML Place consult to:: dr. hoyt Notified:: answering service Phone number called:: Was contact made?: Yes If yes, spoke with:: gale Time called:: 08:16 01/03/17 13:57 Consult to Physician [CONS] Routine Consulting Provider: MARK CERVANTES Reason For Exam: chest pain Place consult to:: DR. CERVANTES Notified:: DR. CERVANTES Phone number called:: IN HOUSE Was contact made?: Yes If yes, spoke with:: DR. 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 He was found to have copd exacerbation and extreme leukocytosis. He was hypoxic and placed on NIPPV, which worked and he was transitioned to nasal canula. He was also in ARF due to vasomotor nephropathy, poa. To evaluate the cp, a Lexiscan Stress test showed small mild partially reversible distal inferior wall perfusion defect, mild mid inferior wall hypokinesia and low normal LVEF around 53%. He was evaluated by Cardiology ( [facility]) and ECHO has been ordered. -CML, worsening chronic condition now with hypoxemia -Acute respiratory failure with hypoxia -Acute COPD exacerbation -Acute renal failure, resolved -Thrombocytopenia related to see male -Tobacco dependency: Counseling to stop -DVT prophylaxis: SCDs and subcutaneous Lovenox -Disposition: If 2D echocardiogram is unremarkable and cleared by cardiology and off oxygen then he can be discharged today, follow up outpatient with hematology Disposition: DISCHARGED TO HOME OR SELFCARE Time spent for discharge: 32 minutes Core Measure Documentation - Palliative Care Palliative Care/ Comfort Measures: Not Applicable - Core Measures Any of the following diagnoses?: none - VTE Discharge Requirements Deep Vein Thrombosis/Pulmonary Embolism Present on Admission: No Has pt received <5 days of overlap therapy or INR<2.0: No Anticoagulant overlap therapy prescribed at discharge: No Contraindication No Overlap Therapy order at DC: Not Indicated Exam - Physical Exam Narrative exam: GEN: WDWN, NAD, AWAKE, ALERT, ORIENTATED 3 HEENT: NCAT, PERRL, EOMI, OP CLEAR NECK: SUPPLE, NO THYROMEGALY, NO JVD, NO LAD CVS: RRR, NORMAL S1S2 LUNGS/CHEST: CTA B, NORMAL CHEST EXPANSION B, GOOD AIR ENTRY B ABD: SOFT NTND, GBS, NO REBOUND OR GUARDING EXT/SKIN: NO SIGNIFICANT EDEMA OR RASH MSK: FROM X 4 EXTREMITIES NEURO: CN 2-12 GROSSLY INTACT, NO new FOCAL DEFICITS PSY: CALM - Constitutional Vitals: Temp Pulse Resp BP Pulse Ox 97.6 F 74 18 123/78 97 01/04/17 08:06 01/04/17 08:06 01/04/17 08:06 01/04/17 08:06 01/04/17 08:06 Plan Activity: advance as tolerated (no strenous activites until cleared by PCP. ) Diet: regular Durable Medical Equipment Needed Upon Discharge: Nebulizer Follow up with: ANTOLIN MENDIOLA MD [Primary Care Provider] - 3-5 Days GALA MALDONADO MD [Staff Physician] - 7 Days MARK CERVANTES MD [Staff Physician] - 7 Days Prescriptions: Acetaminophen [Acetaminophen TAB] 650 mg PO Q4H PRN #30 tablet PRN Reason: Pain MILD(1-3)/Fever >100.5/STUART ALBUTEROL NEB's [Proventil 0.083% NEBS] 2.5 mg IH Q3HRT PRN #30 nebu PRN Reason: Shortness Of Breath Allopurinol [Zyloprim] 300 mg PO QDAY #30 tablet Docusate Sodium [Colace CAP] 100 mg PO BID #60 capsule Hydroxyurea [Hydrea] 1,500 mg PO QDAY #1 mo Ipratropium/Albuterol Sulfate [Duoneb 0.5 mg-3 mg/3 ml Soln] 1 ampul IH BID #30 ampul.neb Lactulose [Cephulac] 20 gm PO Q6H PRN #1 bottle PRN Reason: Constipation Levofloxacin [Levaquin TAB] 750 mg PO DAILY #5 tablet oxyCODONE /ACETAMINOPHEN [Percocet 5/325 mg] 1 tab PO Q6H PRN #30 tablet PRN Reason: Pain , Severe (7-10)
--- NOTE | 2017-01-04 11:37 | Progress Note ---
Assessment and Plan Assessment: Chest pain, atypical - ECG wioth no acute ST or t wave abnormalities, troponins negative for AMI x 2 sets, exacerbated by deep inspiration per pt report, currently resolved. COPD exacerbation / ? bronchitis CML CKD Mildly abnormal stress nuclear scan - partially reversible distal inferior wall perfusion defect could be artifact. Plan: Echo reviewed with NAF - mild LVH, EF 55 - 60%. Results reviewed with pt. Currently stable cardiac status. Pt may discharge home from cardiology standpoint. Recommend follow up in our office with Dr. Zaman within 1-2 weeks of hospital discharge. The patient has been seen in conjunction with Dr. Santos Lyons who agrees with the assessment and plan of care. Subjective Date of service: 01/04/17 Principal diagnosis: COPD exacerbation Interval history: Pt resting comfortably in bed, denies any complaints. States he is ready to go home. VSS. Objective Last Vital Signs Temp 97.6 F 01/04/17 08:06 Pulse 74 01/04/17 08:06 Resp 18 01/04/17 08:06 BP 123/78 01/04/17 08:06 Pulse Ox 97 01/04/17 08:06 - Physical Examination Neck: Positive: neck supple, trachea midline. Negative: JVD/HJR, Masses Cardiac: Positive: Reg Rate and Rhythm, S1/S2 Lungs: Positive: Decreased Breath Sounds Neuro: Positive: Grossly Intact, Cranial Nerve 2-12 Intact Abdomen: Positive: Unremarkable, Soft, Active Bowel Sounds. Negative: Tender Skin: Positive: Clear. Negative: Rash, Wound Musculoskeletal: No Fluid Collection, No Pain, Normal Range of Motion Extremities: Present: normal, upper extr. pulses, lower extr. pulses. Absent: edema - Labs and Meds Cardiac Enzymes 01/03/17 01/04/17 Range/Units 15:09 04:34 Lactate Dehydrogenase 417 H 384 H (91-180) units/L Lipids 01/04/17 Range/Units 04:34 Triglycerides 62 (2-149) mg/dL Cholesterol 83 (50-199) mg/dL HDL Cholesterol 38 L (40-59) mg/dL Cholesterol/HDL Ratio 2.18 % CBC 01/03/17 01/04/17 Range/Units 15:03 04:34 WBC 130.1 H* 120.8 H* (4.5-11.0) K/mm3 RBC 5.17 H 4.91 (3.65-5.03) M/mm3 Hgb 14.2 13.1 (11.8-15.2) gm/dl Hct 46.2 H 44.2 (35.5-45.6) % Plt Count 111 L 109 L (140-440) K/mm3 Comprehensive Metabolic Panel 01/03/17 01/03/17 01/04/17 Range/Units 13:56 15:08 04:34 Sodium 137 137 140 (137-145) mmol/L Potassium 4.7 4.9 4.8 (3.6-5.0) mmol/L Chloride 100.8 99.7 103.5 (98-107) mmol/L Carbon Dioxide 24 25 22 (22-30) mmol/L BUN 23 H 24 H 21 H (9-20) mg/dL Creatinine 1.6 H 1.6 H 1.3 (0.8-1.5) mg/dL Glucose 127 H 174 H 147 H (75-100) mg/dL Calcium 8.2 L 8.2 L 7.9 L (8.4-10.2) mg/dL - Imaging and Cardiology EKG: report reviewed, image reviewed Pharmacologic stress test: report reviewed Echo: report reviewed - Telemetry EKG Rhythm: Sinus Rhythm
[2017-01-04 12:52] VITALS: BP 128/78
== END 2017-01-04 13:10 | disposition home or self-care (01) | DRG 189 ==
LOC: ED 10:19 → 3A 14:24
PROVIDERS: ADMIT Internal Medicine; ATTEND Internal Medicine
PROC: 5A09357 Assistance with Respiratory Ventilation, Less than 24 Consecutive Hours, Continuous Positive Airway Pressure (ICD-10-PCS; principal; 2016-12-30)
PROC: 4A033R1 Measurement of Arterial Saturation, Peripheral, Percutaneous Approach (ICD-10-PCS; 2016-12-30)
DX: J96.21 Acute and chronic respiratory failure with hypoxia (principal); N17.0 Acute kidney failure with tubular necrosis; J44.1 Chronic obstructive pulmonary disease with (acute) exacerbation; C92.20 Atypical chronic myeloid leukemia, BCR/ABL-negative, not having achieved remission; D75.1 Secondary polycythemia; D72.829 Elevated white blood cell count, unspecified; Z82.49 Family history of ischemic heart disease and other diseases of the circulatory system; Z71.6 Tobacco abuse counseling; Z59.0 Homelessness; F41.9 Anxiety disorder, unspecified; N18.9 Chronic kidney disease, unspecified; E87.5 Hyperkalemia; E86.9 Volume depletion, unspecified; D69.6 Thrombocytopenia, unspecified; F17.200 Nicotine dependence, unspecified, uncomplicated; R07.89 Other chest pain
CPT/HCPCS: 36415; 36600; 70450; 71010; 76770; 78452; 80048; 80053; 80061; 81001; 81015; 82248; 82550; 82553; 82570; 82803; 82962; 83036; 83615; 84100; 84156; 84484; 84550; 85007; 85025; 85027; 85610; 93005; 93010; 93017; 93306; 94640; 94760; 96365; 96372; A9502; J0171; J1170; J1650; J1885; J1956; J2405; J2785; J2920; J2930; J3475; J7030; J7040

== ENCOUNTER 2017-04-19 07:30 | Outpatient (CLI) | payer OTHER ==
[2017-04-19] MEDS ORDERED: PROVENTIL IH ONE (08:02)
== END 2017-04-19 07:31 | disposition home or self-care (01) ==
LOC: PF 07:30
PROVIDERS: ATTEND Internal Medicine
DX: N18.3 Chronic kidney disease, stage 3 (moderate) (principal); J44.9 Chronic obstructive pulmonary disease, unspecified; C95.90 Leukemia, unspecified not having achieved remission; Z87.891 Personal history of nicotine dependence; J45.901 Unspecified asthma with (acute) exacerbation
CPT/HCPCS: 94060; 94640

== ENCOUNTER 2017-05-10 11:31 | Outpatient (CLI) | payer OTHER ==
[2017-05-10] MEDS ORDERED: PROVENTIL IH ONE (11:58)
== END 2017-05-10 11:32 | disposition home or self-care (01) ==
LOC: PF 11:31
PROVIDERS: ATTEND Internal Medicine
DX: N18.3 Chronic kidney disease, stage 3 (moderate) (principal); J44.9 Chronic obstructive pulmonary disease, unspecified; C95.90 Leukemia, unspecified not having achieved remission; J45.901 Unspecified asthma with (acute) exacerbation; Z87.891 Personal history of nicotine dependence
CPT/HCPCS: 94729

== ENCOUNTER 2017-12-26 20:20 | Inpatient (IN) | payer OTHER ==
[2017-12-26] MEDS ORDERED: ATROVENT IH ONE ×2 (20:26→20:29)
[2017-12-26] MEDS ORDERED: PROVENTIL IH ONE ×2 (20:26→20:29)
[2017-12-26 21:01] LABS: Basophils # (Auto) 0.1 K/mm3 (0.0-0.1); Basophils % (Auto) 0.7 % (0.0-1.8); Eosinophils # (Auto) 0.5 K/mm3 (0.0-0.4); Eosinophils % (Auto) 3.9 % (0.0-4.3); Hematocrit 51.3 % (35.5-45.6); Hemoglobin 16.6 gm/dl (11.8-15.2); Lymphocytes % (Auto) 15.5 % (13.4-35.0); Mean Corpuscular HGB Conc 32 % (32-34); Mean Corpuscular Hemoglobin 30 pg (28-32); Mean Corpuscular Volume 93 fl (84-94); Monocytes # (Auto) 0.8 K/mm3 (0.0-0.8); Monocytes % (Auto) 5.9 % (0.0-7.3); Platelet Count 209 K/mm3 (140-440); Red Blood Count 5.52 M/mm3 (3.65-5.03); Red Cell Distribution Width 14.7 % (13.2-15.2)
[2017-12-26] MEDS ORDERED: APRESOLINE IV ONE (21:13)
[2017-12-26] MEDS ORDERED: SUBLIMAZE IV ONE (21:13)
[2017-12-26] MEDS ORDERED: MAGNESIUM SULFATE 2GM/50ML 2 GM/50 ML BAG IV ONE (21:13)
[2017-12-26 21:22] LABS: BUN/Creatinine Ratio 14; Blood Urea Nitrogen 15 mg/dL (9-20); Calcium 9.2 mg/dL (8.4-10.2); Hemolysis Index 12
--- NOTE | 2017-12-26 22:27 | Emergency Department Report ---
HPI - General Chief Complaint: Dyspnea/Respdistress Time Seen by Provider: 12/26/17 20:54 - HPI HPI: The patient is a 52 yo male with a hx of copd, whom presents for evaluation of dyspnea. The patient reports dyspnea for the past 2 days, constant since onset, severe, exacerabated with activity or ambulation, and associated with cough. The patient denies fever, trauma to the chest wall, syncope, hemoptysis, unilateral leg swelling, oral contraceptive use, recent immobilization, history of DVT or PE. ED Past Medical Hx - Past Medical History Previous Medical History?: Yes Hx Diabetes: No Hx of Cancer: Yes (leukemia) Hx Asthma: Yes Hx COPD: Yes Hx HIV: No - Social History Smoking Status: Former Smoker - Medications Home Medications: Home Medications Medication Instructions Recorded Confirmed Last Taken Type ALBUTEROL NEB's [Proventil 0.083% 2.5 mg IH Q3HRT PRN #30 nebu 01/04/17 Unknown Rx NEBS] Acetaminophen [Acetaminophen TAB] 650 mg PO Q4H PRN #30 tablet 01/04/17 Unknown Rx Allopurinol [Zyloprim] 300 mg PO QDAY #30 tablet 01/04/17 Unknown Rx Docusate Sodium [Colace CAP] 100 mg PO BID #60 capsule 01/04/17 Unknown Rx Fluticasone/Salmeterol [Advair 1 puff IH BID #1 unit 01/04/17 12/30/16 Unknown Rx Diskus 500-50 mcg] Hydroxyurea [Hydrea] 1,500 mg PO QDAY #1 mo 01/04/17 Unknown Rx Ipratropium/Albuterol Sulfate 1 ampul IH BID #30 ampul.neb 01/04/17 Unknown Rx [DUONEB *Not for PRN Use*] Lactulose [Cephulac] 20 gm PO Q6H PRN #1 bottle 01/04/17 Unknown Rx Levofloxacin [Levaquin TAB] 750 mg PO DAILY #5 tablet 01/04/17 Unknown Rx oxyCODONE /ACETAMINOPHEN [Percocet 1 tab PO Q6H PRN #30 tablet 01/04/17 Unknown Rx 5/325 mg] ED Review of Systems ROS: Stated complaint: COPD EXACERBATION Other details as noted in HPI Constitutional: denies: fever ENT: denies: throat or neck pain Respiratory: denies: cough reports shortness of breath Cardiovascular: denies: chest pain Endocrine: denies unexplained weight loss or gain Gastrointestinal: denies: abdominal pain, nausea Genitourinary: denies: dysuria Musculoskeletal: denies: leg swelling Skin: denies: rash Neurological: denies: headache Hematological/Lymphatic: denies: easy bleeding or easy bruising Psych: denies sadness or hopelessness Physical Exam - Physical Exam Vital Signs: Vital Signs 12/26/17 12/26/17 20:27 20:32 Temperature 98 F Pulse Rate 102 H Pulse Rate [ 93 H Anterior Bilateral Throughout] Respiratory 26 H Rate Respiratory 24 Rate [Anterior Bilateral Throughout] Blood Pressure 157/104 O2 Sat by Pulse 100 Oximetry Physical Exam: General: well-nourished, well-developed, no acute distress Head: Normocephalic, atraumatic Eyes: normal sclera ENT: Mucous membranes are pale and dry Neck: trachea midline, neck supple, No neck stiffness, no cervical adenopathy Respiratory: Mildly diminished breath sounds and expiratory wheezing present throughout lung kothari bilaterally, no costal retractions, not in respiratory distress at this time Cardio: S1 and S2 present, no murmurs, rubs, gallops, capillary refill is delayed Abdomen: Normoactive bowel sounds, soft abdomen, no rigidity, no guarding or rebound tenderness Musc: No pitting edema Skin: No rash Neuro: no facial drooping, normal speech Psych: Normal affect ED Course Vital Signs 12/26/17 12/26/17 20:27 20:32 Temperature 98 F Pulse Rate 102 H Pulse Rate [ 93 H Anterior Bilateral Throughout] Respiratory 26 H Rate Respiratory 24 Rate [Anterior Bilateral Throughout] Blood Pressure 157/104 O2 Sat by Pulse 100 Oximetry ED Medical Decision Making - Lab Data Result diagrams: 12/26/17 20:51 12/26/17 20:51 - Medical Decision Making The patient was seen and examined by myself. The patient is placed on a shelter monitor and continuous pulse ox. On initial evaluation, the patient was found to be in no distress. Evaluation orders were placed. The patient is given DuoNeb breathing treatment. In route via EMS the patient received IV solumedrol, and IV magnesium.Chest x-rays negative for pneumonia, pulmonary vascular congestion, pleural effusion, or pneumothorax. Lab results reveal elevated RBC, hemoglobin, and hematocrit, consistent with hemoconcentration and exam findings of dehydration. ABG reveals hypoxemia, PO2 60. The patient was reevaluated and found to remain with dyspnea and wheezing throughout lung kothari , although increased work of breathing resolved. The on-call hospitalist service was contacted. They agreed to admit the patient for further treatment and close monitoring. The ED admit order was placed. The patient was admitted in guarded condition. Critical care attestation.: If time is entered above; I have spent that time in minutes in the direct care of this critically ill patient, excluding procedure time. ED Disposition Clinical Impression: Acute exacerbation of chronic obstructive pulmonary disease (COPD), Hypoxemia, Acute chest pain, Dehydration Disposition: OP ADMIT IP TO THIS HOSP Is pt being admited?: Yes Does the pt Need Aspirin: Yes Condition: Fair Instructions: Chest Pain (ED), Chronic Obstructive Pulmonary Disease (ED) Referrals: MONICA FISHER MD [Primary Care Provider] - 3-5 Days Time of Disposition: 00:01
[2017-12-26 23:26] LABS: ABG HCO3 22.6 mmol/L (20.0-26.0); ABG Methemoglobin 0.6 % (0.0-1.5); ABG Oxygen Saturation 91.7 % (95.0-99.0); ABG PCO2 38.4 mm Hg; ABG PH 7.388 pH Units (7.350-7.450); ABG PO2 61.5 mm Hg (80.0-90.0)
--- NOTE | 2017-12-26 23:51 | XRay Report ---
FINAL REPORT EXAM: XR CHEST 1V AP HISTORY: Shortness of breath TECHNIQUE: AP portable view of the chest PRIORS: None. FINDINGS: Lines, tubes, and devices: N/A Lungs and pleura: Trachea is normal in position. Lungs are clear of infiltrate, pleural effusion, vascular congestion, or pneumothorax. Cardiomediastinal silhouette: Cardiac and mediastinal silhouettes are unremarkable. Other: Bony structures are intact. IMPRESSION: No acute cardiopulmonary process seen.
[2017-12-27] MEDS ORDERED: NACL 0.9% 1000 ML 1,000 ML IV ONE (01:04)
[2017-12-27] MEDS ORDERED: BABY ASPIRIN PO ONE (01:05)
--- NOTE | 2017-12-27 02:06 | Cat Scan Report ---
FINAL REPORT PROCEDURE: CT ANGIO CHEST TECHNIQUE: Computerized tomographic angiography of the chest was performed after the IV injection of iodinated nonionic contrast including image processing. The image data was postprocessed using 2-dimensional multiplanar reformatted (MPR) and 3-dimensional (MIP and/or volume rendered) techniques. HISTORY: chest pain COMPARISON: No prior studies are available for comparison. FINDINGS: Heart and pericardium: Normal. Thoracic aorta: Normal. Pulmonary vasculature: Normal. Lymph nodes: No enlarged thoracic lymph nodes. Lungs: Normal. Pleural space: No effusion, thickening, or pneumothorax. Musculoskeletal structures: No significant abnormality. Upper abdominal structures: No significant abnormality. IMPRESSION: There is no evidence of pulmonary arterial emboli. The lungs are clear without infiltrate, effusion or pneumothorax
[2017-12-27] MEDS ORDERED: APRESOLINE IV PRN (02:07)
--- NOTE | 2017-12-27 02:08 | History and Physical Report ---
History of Present Illness Date of examination: 12/27/17 History of present illness: 52-year-old man with a history of COPD, CML comes to the emergency room complaints of shortness of breath since Wednesday, cough productive of green phlegm. He is using his medical history is without any significant improvement , no fever or chills Review of systems Constitutional: no weight loss, chills Ears, eyes, nose, mouth and throat: no nasal congestion, no nasal discharge, no sinus pressure, no vision change, no red eye. Neck: No neck pain or rigidity. Cardiovascular: no chest pain, palpitations Respiratory: + cough, shortness of breath Gastrointestinal: no abdominal pain, hematochezia Genitourinary : no dysuria, frequency , no hematuria Musculoskeletal: no joint swelling or muscle ache Integumentary: no rash, no pruritis Neurological: no parathesias, no numbness, no focal weakness Endocrine: no cold or heat intolerance, no polyuria or polydipsia Hematologic/Lymphatic: no easy bruising, no easy bleeding, no gland swelling Allergic/Immunologic: no urticaria, no angioedema. PAST MEDICAL HISTORY: COPD, CML PAST SURGICAL HISTORY: None SOCIAL HISTORY: Denies alcohol, tobacco, drugs FAMILY HISTORY: Hypertension Medications and Allergies Allergies Allergy/AdvReac Type Severity Reaction Status Date / Time No Known Allergies Allergy Unverified 09/22/13 16:54 Home Medications Medication Instructions Recorded Confirmed Last Taken Type ALBUTEROL NEB's [Proventil 0.083% 2.5 mg IH Q3HRT PRN #30 nebu 01/04/17 Unknown Rx NEBS] Acetaminophen [Acetaminophen TAB] 650 mg PO Q4H PRN #30 tablet 01/04/17 Unknown Rx Allopurinol [Zyloprim] 300 mg PO QDAY #30 tablet 01/04/17 12/27/17 Unknown Rx Hydroxyurea [Hydrea] 1,500 mg PO QDAY #1 mo 01/04/17 12/27/17 Unknown Rx Ipratropium/Albuterol Sulfate 1 ampul IH BID #30 ampul.neb 01/04/17 12/27/17 Unknown Rx [DUONEB *Not for PRN Use*] Lactulose [Cephulac] 20 gm PO Q6H PRN #1 bottle 01/04/17 12/27/17 Unknown Rx Levofloxacin [Levaquin TAB] 750 mg PO DAILY #5 tablet 01/04/17 12/27/17 Unknown Rx oxyCODONE /ACETAMINOPHEN [Percocet 1 tab PO Q6H PRN #30 tablet 01/04/17 Unknown Rx 5/325 mg] Active Meds: Active Medications Hydralazine HCl (Apresoline) 5 mg IV Q6HR PRN PRN Reason: Hypertension Exam - Physical Exam Narrative exam: Gen. appearance: Patient lying in bed, no apparent distress HEENT: Normocephalic, atraumatic, pupils equally round and reactive to light, extraocular movement intact, and no sclericterus,. No JVD or thyromegaly or nodule,neck supple, no carotid bruit ,mucous membranes moist, no exudate or erythema Heart: S1, S2, regular rate and rhythm Lungs: Wheezing bilaterally, breathing comfortable Abdomen: Positive bowel sounds, nontender, nondistended, no organomegaly Extremity: No edema, cyanosis, clubbing Skin: No rash, nodules, warm, dry Neuro: Oriented 3, cranial nerves II-12 intact, speech is fluent, motor and sensory intact - Constitutional Vitals: Temp Pulse Resp BP Pulse Ox 98 F 90 10 L 139/86 94 12/26/17 22:30 12/27/17 00:06 12/27/17 00:06 12/27/17 00:06 12/27/17 00:06 Results - Labs CBC & Chem 7: 12/26/17 20:51 12/26/17 20:51 Labs: Abnormal lab results 12/26/17 12/26/17 12/26/17 Range/Units 20:51 20:51 23:15 WBC 12.9 H (4.5-11.0) K/mm3 RBC 5.52 H (3.65-5.03) M/mm3 Hgb 16.6 H (11.8-15.2) gm/dl Hct 51.3 H (35.5-45.6) % Eos # 0.5 H (0.0-0.4) K/mm3 Seg Neutrophils % 74.0 H (40.0-70.0) % Seg Neutrophils # 9.5 H (1.8-7.7) K/mm3 ABG pO2 61.5 L (80.0-90.0) mm Hg ABG O2 Saturation 91.7 L (95.0-99.0) % Oxyhemoglobin 89.6 L (95.0-99.0) % Glucose 101 H (75-100) mg/dL - Imaging and Cardiology EKG: image reviewed Chest x-ray: image reviewed CT scan - chest: report reviewed Assessment and Plan Assessment COPD exacerbation CML Plan Admit to medicine Start high-dose steroids, nebulized treatments, antibiotics DVT prophalaxis
[2017-12-27] MEDS ORDERED: SODIUM CHLORIDE FLUSH SYRINGE 10 ML IV PRN (02:20)
[2017-12-27] MEDS ORDERED: ZOFRAN IV PRN (02:20)
[2017-12-27] MEDS ORDERED: PROVENTIL IH PRN (09:16)
[2017-12-27] MEDS: DUONEB *Not for PRN Use IH SCH ×3 (09:22→21:45)
[2017-12-27] MEDS: PULMICORT IH SCH ×2 (09:40→20:03)
[2017-12-27] MEDS: BROVANA NEBU IH SCH ×2 (09:40→20:03)
[2017-12-27] MEDS ORDERED: LOVENOX SUB-Q SCH (10:00)
[2017-12-27] MEDS ORDERED: ZITHROMAX 500 MG in NACL 0.9% 250ML 250 ML IV SCH (10:00)
[2017-12-27] MEDS: ZYLOPRIM PO SCH (10:54)
[2017-12-27] MEDS: LOVENOX SUB-Q SCH (10:55)
[2017-12-27] MEDS: SODIUM CHLORIDE FLUSH SYRINGE 10 ML IV SCH ×2 (10:56→21:34)
[2017-12-27] MEDS: TYLENOL PO PRN (11:00)
[2017-12-27] MEDS: HYDREA PO SCH (14:39)
--- NOTE | 2017-12-27 15:01 | Event Note ---
<ALIYAH PATHAK - Last Filed: 12/27/17 15:00> Date: 12/27/17 Patient was seen and evaluated at the bedside, patient was admitted this morning for COPD exacerbation, continue management per H&P. <MONICA CALVERT - Last Filed: 12/27/17 16:42> I saw and evaluated the patient. I agree with the findings and the plan of care as documented in the Nurse Practitioner's~note, with the following corrections and additions. Patient has less shortness of breath. Continue current COPD management.
[2017-12-28] MEDS: DUONEB *Not for PRN Use IH SCH ×4 (01:33→20:23)
[2017-12-28 07:59] LABS: Basophils % (Auto) 0.1 % (0.0-1.8); Hematocrit 43.7 % (35.5-45.6); Hemoglobin 14.5 gm/dl (11.8-15.2); Lymphocytes # (Auto) 0.7 K/mm3 (1.2-5.4); Mean Corpuscular HGB Conc 33 % (32-34); Mean Corpuscular Hemoglobin 30 pg (28-32); Mean Corpuscular Volume 92 fl (84-94); Monocytes # (Auto) 0.6 K/mm3 (0.0-0.8); Platelet Count 174 K/mm3 (140-440); Red Blood Count 4.75 M/mm3 (3.65-5.03); Red Cell Distribution Width 14.8 % (13.2-15.2)
--- NOTE | 2017-12-28 09:04 | Progress Note ---
<ALIYAH PATHAK - Last Filed: 12/28/17 14:49> Assessment and Plan Assessment and plan: Patient is a 52 yo male with a hx of copd, who presented for evaluation of dyspnea. COPD exacerbation Patient is improving clinically, we will continue his high-dose steroids, nebulized treatments, antibiotics, O2 administration Hyperglycemia Secondary to steroid administration, will continue to monitor CML DVT prophalaxis Lovenox Patient disposition Anticipate d/c in am if pt continues to improve History Interval history: Patient seen and examined. No new issues overnight. He feels as if his SOB is about the same as it was yesterday. Labs and nursing notes reviewed. Hospitalist Physical - Constitutional Vitals: Temp Pulse Resp BP Pulse Ox 97.7 F 97 H 12 116/72 97 12/28/17 07:35 12/28/17 07:35 12/28/17 07:35 12/28/17 07:35 12/28/17 07:35 General appearance: Present: no acute distress, well-nourished - EENT Eyes: Present: PERRL, EOM intact ENT: hearing intact, clear oral mucosa - Neck Neck: Present: supple, normal ROM - Respiratory Respiratory effort: normal Respiratory: bilateral: diminished - Cardiovascular Rhythm: regular Heart Sounds: Present: S1 & S2 - Extremities Extremities: no ischemia, No edema - Abdominal General gastrointestinal: soft, non-tender, non-distended - Integumentary Integumentary: Present: clear, warm, dry - Psychiatric Psychiatric: appropriate mood/affect, intact judgment & insight, cooperative - Neurologic Neurologic: CNII-XII intact Results - Labs CBC & Chem 7: 12/28/17 07:13 12/28/17 07:13 Labs: Laboratory Last Values WBC 11.2 K/mm3 (4.5-11.0) H 12/28/17 07:13 RBC 4.75 M/mm3 (3.65-5.03) 12/28/17 07:13 Hgb 14.5 gm/dl (11.8-15.2) 12/28/17 07:13 Hct 43.7 % (35.5-45.6) D 12/28/17 07:13 MCV 92 fl (84-94) 12/28/17 07:13 MCH 30 pg (28-32) 12/28/17 07:13 MCHC 33 % (32-34) 12/28/17 07:13 RDW 14.8 % (13.2-15.2) 12/28/17 07:13 Plt Count 174 K/mm3 (140-440) 12/28/17 07:13 Lymph % (Auto) 6.0 % (13.4-35.0) L 12/28/17 07:13 Garrett % (Auto) 5.0 % (0.0-7.3) 12/28/17 07:13 Eos % (Auto) 0.0 % (0.0-4.3) 12/28/17 07:13 Baso % (Auto) 0.1 % (0.0-1.8) 12/28/17 07:13 Lymph # 0.7 K/mm3 (1.2-5.4) L 12/28/17 07:13 Garrett # 0.6 K/mm3 (0.0-0.8) 12/28/17 07:13 Eos # 0.0 K/mm3 (0.0-0.4) 12/28/17 07:13 Baso # 0.0 K/mm3 (0.0-0.1) 12/28/17 07:13 Seg Neutrophils % 88.9 % (40.0-70.0) H 12/28/17 07:13 Seg Neutrophils # 9.9 K/mm3 (1.8-7.7) H 12/28/17 07:13 D-Dimer 135.00 ng/mlDDU (0-234) 12/27/17 02:40 ABG pH 7.388 pH Units (7.350-7.450) 12/26/17 23:15 ABG pCO2 38.4 mm Hg 12/26/17 23:15 ABG pO2 61.5 mm Hg (80.0-90.0) L 12/26/17 23:15 ABG HCO3 22.6 mmol/L (20.0-26.0) 12/26/17 23:15 ABG O2 Saturation 91.7 % (95.0-99.0) L 12/26/17 23:15 ABG O2 Content 20.1 (0.0-44) 12/26/17 23:15 ABG Base Excess -2.0 mmol/L (-2.0-3.0) 12/26/17 23:15 ABG Hemoglobin 16.0 gm/dl (14.0-18.0) 12/26/17 23:15 ABG Carboxyhemoglobin 1.8 % (0.0-5.0) 12/26/17 23:15 ABG Methemoglobin 0.6 % (0.0-1.5) 12/26/17 23:15 Oxyhemoglobin 89.6 % (95.0-99.0) L 12/26/17 23:15 FiO2 21 % 12/26/17 23:15 Sodium 141 mmol/L (137-145) 12/26/17 20:51 Potassium 4.6 mmol/L (3.6-5.0) 12/26/17 20:51 Chloride 98.3 mmol/L (98-107) 12/26/17 20:51 Carbon Dioxide 28 mmol/L (22-30) 12/26/17 20:51 Anion Gap 19 mmol/L 12/26/17 20:51 BUN 15 mg/dL (9-20) 12/26/17 20:51 Creatinine 1.1 mg/dL (0.8-1.5) 12/26/17 20:51 Estimated GFR > 60 ml/min 12/26/17 20:51 BUN/Creatinine Ratio 14 % 12/26/17 20:51 Glucose 101 mg/dL (75-100) H 12/26/17 20:51 Calcium 9.2 mg/dL (8.4-10.2) 12/26/17 20:51 Troponin T < 0.010 ng/mL (0.00-0.029) 12/27/17 01:26 NT-Pro-B Natriuret Pep 46.95 pg/mL (0-900) 12/26/17 20:51 <ESTHER MCARTHUR R - Last Filed: 12/29/17 15:34> Assessment and Plan Assessment and plan: I saw and evaluated the patient on the day of service. I agree with the findings and the plan of care as documented in the Nurse Practitioner's~note. Hospitalist Physical - Constitutional Vitals: Temp Pulse Resp BP Pulse Ox 98.2 F 75 18 109/70 96 12/29/17 07:25 12/29/17 08:35 12/29/17 10:00 12/29/17 07:25 12/29/17 08:14 Results - Labs CBC & Chem 7: 12/28/17 07:13 12/28/17 07:13 Labs: Laboratory Last Values WBC 11.2 K/mm3 (4.5-11.0) H 12/28/17 07:13 RBC 4.75 M/mm3 (3.65-5.03) 12/28/17 07:13 Hgb 14.5 gm/dl (11.8-15.2) 12/28/17 07:13 Hct 43.7 % (35.5-45.6) D 12/28/17 07:13 MCV 92 fl (84-94) 12/28/17 07:13 MCH 30 pg (28-32) 12/28/17 07:13 MCHC 33 % (32-34) 12/28/17 07:13 RDW 14.8 % (13.2-15.2) 12/28/17 07:13 Plt Count 174 K/mm3 (140-440) 12/28/17 07:13 Lymph % (Auto) 6.0 % (13.4-35.0) L 12/28/17 07:13 Garrett % (Auto) 5.0 % (0.0-7.3) 12/28/17 07:13 Eos % (Auto) 0.0 % (0.0-4.3) 12/28/17 07:13 Baso % (Auto) 0.1 % (0.0-1.8) 12/28/17 07:13 Lymph # 0.7 K/mm3 (1.2-5.4) L 12/28/17 07:13 Garrett # 0.6 K/mm3 (0.0-0.8) 12/28/17 07:13 Eos # 0.0 K/mm3 (0.0-0.4) 12/28/17 07:13 Baso # 0.0 K/mm3 (0.0-0.1) 12/28/17 07:13 Seg Neutrophils % 88.9 % (40.0-70.0) H 12/28/17 07:13 Seg Neutrophils # 9.9 K/mm3 (1.8-7.7) H 12/28/17 07:13 D-Dimer 135.00 ng/mlDDU (0-234) 12/27/17 02:40 ABG pH 7.388 pH Units (7.350-7.450) 12/26/17 23:15 ABG pCO2 38.4 mm Hg 12/26/17 23:15 ABG pO2 61.5 mm Hg (80.0-90.0) L 12/26/17 23:15 ABG HCO3 22.6 mmol/L (20.0-26.0) 12/26/17 23:15 ABG O2 Saturation 91.7 % (95.0-99.0) L 12/26/17 23:15 ABG O2 Content 20.1 (0.0-44) 12/26/17 23:15 ABG Base Excess -2.0 mmol/L (-2.0-3.0) 12/26/17 23:15 ABG Hemoglobin 16.0 gm/dl (14.0-18.0) 12/26/17 23:15 ABG Carboxyhemoglobin 1.8 % (0.0-5.0) 12/26/17 23:15 ABG Methemoglobin 0.6 % (0.0-1.5) 12/26/17 23:15 Oxyhemoglobin 89.6 % (95.0-99.0) L 12/26/17 23:15 FiO2 21 % 12/26/17 23:15 Sodium 141 mmol/L (137-145) 12/28/17 07:13 Potassium 4.5 mmol/L (3.6-5.0) 12/28/17 07:13 Chloride 102.5 mmol/L (98-107) 12/28/17 07:13 Carbon Dioxide 24 mmol/L (22-30) 12/28/17 07:13 Anion Gap 19 mmol/L 12/28/17 07:13 BUN 14 mg/dL (9-20) 12/28/17 07:13 Creatinine 1.0 mg/dL (0.8-1.5) 12/28/17 07:13 Estimated GFR > 60 ml/min 12/28/17 07:13 BUN/Creatinine Ratio 14 % 12/28/17 07:13 Glucose 145 mg/dL (75-100) H 12/28/17 07:13 Calcium 8.8 mg/dL (8.4-10.2) 12/28/17 07:13 Troponin T < 0.010 ng/mL (0.00-0.029) 12/27/17 01:26 NT-Pro-B Natriuret Pep 46.95 pg/mL (0-900) 12/26/17 20:51
[2017-12-28] MEDS: BROVANA NEBU IH SCH ×2 (09:22→20:23)
[2017-12-28] MEDS: PULMICORT IH SCH ×2 (09:22→20:23)
[2017-12-28 09:44] LABS: BUN/Creatinine Ratio 14; Blood Urea Nitrogen 14 mg/dL (9-20); Calcium 8.8 mg/dL (8.4-10.2); Hemolysis Index 23
[2017-12-28] MEDS: ZITHROMAX PO SCH (10:46)
[2017-12-28] MEDS: ZYLOPRIM PO SCH (10:46)
[2017-12-28] MEDS: SODIUM CHLORIDE FLUSH SYRINGE 10 ML IV SCH ×2 (10:46→21:52)
[2017-12-28] MEDS: HYDREA PO SCH (10:46)
[2017-12-28] MEDS: LOVENOX SUB-Q SCH (10:47)
--- NOTE | 2017-12-28 15:38 | XRay Report ---
AP CHEST: HISTORY: Possible aspiration AP view of the chest demonstrates a normal mediastinal and cardiac contour with clear lungs and normal bony and soft tissue structures. IMPRESSION: Unremarkable AP chest.
[2017-12-28] MEDS: TYLENOL PO PRN (19:54)
[2017-12-28] MEDS: THORAZINE PO PRN (19:55)
[2017-12-29] MEDS: DUONEB *Not for PRN Use IH SCH ×4 (01:59→21:02)
[2017-12-29] MEDS: THORAZINE PO PRN ×2 (03:10→18:38)
[2017-12-29] MEDS: TYLENOL PO PRN ×2 (03:14→08:36)
[2017-12-29] MEDS: PULMICORT IH SCH ×2 (08:12→21:02)
[2017-12-29] MEDS: BROVANA NEBU IH SCH ×2 (08:12→21:02)
[2017-12-29] MEDS: LOVENOX SUB-Q SCH (10:31)
[2017-12-29] MEDS: SODIUM CHLORIDE FLUSH SYRINGE 10 ML IV SCH (10:31)
[2017-12-29] MEDS: HYDREA PO SCH (10:32)
[2017-12-29] MEDS: ZITHROMAX PO SCH (10:33)
[2017-12-29] MEDS: ZYLOPRIM PO SCH (10:33)
--- NOTE | 2017-12-29 15:37 | Discharge Summary ---
Providers - Providers Date of Admission: 12/27/17 02:20 Date of discharge: 12/29/17 Attending physician: ESTHER MCARTHUR Primary care physician: MONICA FISHER Hospitalization Condition: Fair Pertinent studies: A chest x-ray: No infiltrates Chest CTA: Negative for PE Hospital course: 52-year-old man with a history of COPD, CML comes to the emergency room complaints of shortness of breath with cough productive of green phlegm. He was admitted to the hospital for further evaluation and management. His chest x -ray showed no infiltrate, CT chest did not show any PE. He was placed on frequent nebulizer breathing treatment, empiric steroids and antibiotics. His symptoms improved and maintaining oxygen saturation greater than 94% in room air. He was discharged home in stable condition. Discharge diagnosis: /Acute COPD exacerbation Patient improved clinically with high-dose steroids, nebulized treatments, antibiotics, O2 administration /Hyperglycemia, secondary to steroid administration, /CML, outpt follow up /DVT prophalaxis, Lovenox Physical exam: GENERAL: well-developed and well-nourished -[place] male lying on bed appeared to be in no discomfort. HEENT: Normocephalic. Atraumatic. No conjunctival congestion or icterus. Patient has moist mucous membranes. NECK: Supple. Trachea midline. CHEST/LUNGS: Clear to auscultated bilaterally, breathing nonlabored. No wheezes crackles or rhonchi. HEART/CARDIOVASCULAR: Regular in rate and rhythm. S1 and S2 positive. ABDOMEN: Abdomen is soft, nontender. Patient has normal bowel sounds. SKIN: There is no rash. Warm and dry. NEURO: No focal motor deficit. Follows command. MUSCULOSKELETAL: No joint effusion or tenderness. EXTRIMITY: No edema, no cyanosis or clubbing. PSYCH: Cooperative. Disposition: DC-01 TO HOME OR SELFCARE Time spent for discharge: 32 minutes Core Measure Documentation - Palliative Care Palliative Care/ Comfort Measures: Not Applicable - Core Measures Any of the following diagnoses?: none Exam - Constitutional Vitals: Temp Pulse Resp BP Pulse Ox 98.2 F 75 18 109/70 96 12/29/17 07:25 12/29/17 08:35 12/29/17 10:00 12/29/17 07:25 12/29/17 08:14 Plan Activity: advance as tolerated Weight Bearing Status: Weight Bear as Tolerated Diet: low fat Follow up with: MONICA FISHER MD [Primary Care Provider] - 3-5 Days Prescriptions: Levofloxacin [Levaquin TAB] 750 mg PO DAILY #5 tablet
[2017-12-29 16:13] VITALS: BP 114/71
== END 2017-12-29 21:25 | disposition home or self-care (01) | DRG 191 ==
LOC: ED 20:20 → 3A 12-27 02:20
PROVIDERS: ADMIT Internal Medicine; ATTEND Internal Medicine
DX: J44.1 Chronic obstructive pulmonary disease with (acute) exacerbation (principal); C92.10 Chronic myeloid leukemia, BCR/ABL-positive, not having achieved remission; E86.0 Dehydration; T38.0X5A Adverse effect of glucocorticoids and synthetic analogues, initial encounter; R73.9 Hyperglycemia, unspecified; Z79.51 Long term (current) use of inhaled steroids; Z87.891 Personal history of nicotine dependence; Z79.899 Other long term (current) drug therapy; Z79.2 Long term (current) use of antibiotics; Z82.49 Family history of ischemic heart disease and other diseases of the circulatory system; Y92.89 Other specified places as the place of occurrence of the external cause
CPT/HCPCS: 36415; 71045; 71275; 80048; 82803; 83880; 84484; 85025; 85379; 93005; 93010; 94640; 94760; J0456; J1650; J2930; J3010; J7030; J7050; Q0161; Q9967

== ENCOUNTER 2018-02-09 13:45 | Emergency (ER) | payer SELFPAY ==
[2018-02-09] MEDS ORDERED: MAGNESIUM SULFATE 2GM/50ML 2 GM/50 ML BAG IV ONE ×2 (13:49→13:54)
[2018-02-09] MEDS ORDERED: ATROVENT IH ONE ×2 (13:51→13:54)
[2018-02-09] MEDS ORDERED: PROVENTIL IH ONE ×2 (13:51→13:54)
--- NOTE | 2018-02-09 13:55 | Emergency Department Report ---
ED Shortness of Breath HPI - General Stated Complaint: ASTHMA Time Seen by Provider: 02/09/18 13:52 Source: patient Mode of arrival: Stretcher Limitations: No Limitations - History of Present Illness Initial Comments: 52 yo male with a past medical history leukemia and COPD presents to the hospital with shortness of breath 1 week. Patient has had wheezing and cough productive of white increased sputum. He's been using home nebulizer she was without improvement. No reports of fever. Positive chest tightness. No previous history of intubations. Patient is receiving chemotherapy pills for leukemia. - Related Data Previous Rx's Medication Instructions Recorded Last Taken Type ALBUTEROL NEB's [Proventil 0.083% 2.5 mg IH Q3HRT PRN #30 nebu 01/04/17 Unknown Rx NEBS] Acetaminophen [Acetaminophen TAB] 650 mg PO Q4H PRN #30 tablet 01/04/17 Unknown Rx Allopurinol [Zyloprim] 300 mg PO QDAY #30 tablet 01/04/17 Unknown Rx Hydroxyurea [Hydrea] 1,500 mg PO QDAY #1 mo 01/04/17 Unknown Rx Ipratropium/Albuterol Sulfate 1 ampul IH BID #30 ampul.neb 01/04/17 Unknown Rx [DUONEB *Not for PRN Use*] Lactulose [Cephulac] 20 gm PO Q6H PRN #1 bottle 01/04/17 Unknown Rx oxyCODONE /ACETAMINOPHEN [Percocet 1 tab PO Q6H PRN #30 tablet 01/04/17 Unknown Rx 5/325 mg] Levofloxacin [Levaquin TAB] 750 mg PO DAILY #5 tablet 12/29/17 Unknown Rx Allergies Allergy/AdvReac Type Severity Reaction Status Date / Time No Known Allergies Allergy Unverified 09/22/13 16:54 ED Review of Systems ROS: Stated complaint: ASTHMA Other details as noted in HPI Comment: All other systems reviewed and negative ED Past Medical Hx - Past Medical History Hx Diabetes: No Hx Asthma: Yes Hx COPD: Yes Hx HIV: No - Social History Smoking Status: Never Smoker - Medications Home Medications: Home Medications Medication Instructions Recorded Confirmed Last Taken Type ALBUTEROL NEB's [Proventil 0.083% 2.5 mg IH Q3HRT PRN #30 nebu 17 Unknown Rx NEBS] Acetaminophen [Acetaminophen TAB] 650 mg PO Q4H PRN #30 tablet 01/04/17 Unknown Rx Allopurinol [Zyloprim] 300 mg PO QDAY #30 tablet 01/04/17 12/27/17 Unknown Rx Hydroxyurea [Hydrea] 1,500 mg PO QDAY #1 mo 01/04/17 12/27/17 Unknown Rx Ipratropium/Albuterol Sulfate 1 ampul IH BID #30 ampul.neb 01/04/17 12/27/17 Unknown Rx [DUONEB *Not for PRN Use*] Lactulose [Cephulac] 20 gm PO Q6H PRN #1 bottle 01/04/17 12/27/17 Unknown Rx oxyCODONE /ACETAMINOPHEN [Percocet 1 tab PO Q6H PRN #30 tablet 01/04/17 Unknown Rx 5/325 mg] Levofloxacin [Levaquin TAB] 750 mg PO DAILY #5 tablet 12/29/17 Unknown Rx ED Physical Exam - Other Other exam information: General: No limitations, patient is alert in no acute distress Head exam: Atraumatic, normocephalic Eyes exam: Normal appearance ENT: Moist mucous membrane, normal oropharynx Neck exam: Normal inspection, full range of motion, no meningismus nontender Respiratory exam: Tachypnea, respiratory distress, able to speak interrupted sentences, bilateral wheezing with poor air movement Cardiovascular: Normal rate and rhythm, normal heart sounds Abdomen: Soft, nondistended, and nontender, with normal bowel sounds, no rebound, or guarding Extremity: Full range of motion normal inspection no deformity, no calf tenderness or edema Back: Normal Inspection, full range of motion, no tenderness Neurologic: Alert, oriented x3, cranial nerves intact, no motor or sensory deficit Psychiatric: normal affect, normal mood Skin: Warm, dry, intact ED Course Vital Signs 02/09/18 02/09/18 02/09/18 13:58 14:08 14:09 Temperature 98 F Pulse Rate 109 H 100 H Respiratory 32 H 30 H Rate Blood Pressure 173/100 Blood Pressure 142/100 [Left] O2 Sat by Pulse 90 97 96 Oximetry ED Medical Decision Making - Lab Data Result diagrams: 02/09/18 13:56 02/09/18 13:59 Lab Results 05/16/18 05/16/18 05/16/18 Range/Units 13:56 13:59 13:59 WBC 9.8 (4.5-11.0) K/mm3 RBC 5.21 H (3.65-5.03) M/mm3 Hgb 16.4 H (11.8-15.2) gm/dl Hct 47.7 H (35.5-45.6) % MCV 92 (84-94) fl MCH 32 (28-32) pg MCHC 34 (32-34) % RDW 15.3 H (13.2-15.2) % Plt Count 214 (140-440) K/mm3 Lymph % (Auto) 27.0 (13.4-35.0) % Turner % (Auto) 5.9 (0.0-7.3) % Eos % (Auto) 3.3 (0.0-4.3) % Baso % (Auto) 0.8 (0.0-1.8) % Lymph # 2.7 (1.2-5.4) K/mm3 Turner # 0.6 (0.0-0.8) K/mm3 Eos # 0.3 (0.0-0.4) K/mm3 Baso # 0.1 (0.0-0.1) K/mm3 Seg Neutrophils % 63.0 (40.0-70.0) % Seg Neutrophils # 6.2 (1.8-7.7) K/mm3 PT 13.0 (12.2-14.9) Sec. INR 0.94 (0.87-1.13) Sodium 142 (137-145) mmol/L Potassium 4.3 (3.6-5.0) mmol/L Chloride 103.3 (98-107) mmol/L Carbon Dioxide 22 (22-30) mmol/L Anion Gap 21 mmol/L BUN 7 L (9-20) mg/dL Creatinine 0.9 (0.8-1.5) mg/dL Estimated GFR > 60 ml/min BUN/Creatinine Ratio 8 % Glucose 86 (75-100) mg/dL Calcium 8.8 (8.4-10.2) mg/dL - EKG Data -: EKG Interpreted by Mt EKG shows normal: sinus rhythm, axis (qrs 53), QRS complexes (qrsd 97), ST-T waves (no stemi) Rate: tachycardia (100) - Medical Decision Making COPD exacerbation Continues to be short of breath with wheezing despite treatment although some improvement Chest x-ray unremarkable No leukocytosis Plans admit to the hospital for further treatment - Differential Diagnosis COPD, asthma, pneumonia, bronchitis, PE Critical Care Time: No Critical care attestation.: If time is entered above; I have spent that time in minutes in the direct care of this critically ill patient, excluding procedure time. ED Disposition Clinical Impression: COPD exacerbation, Leukemia Disposition: OP ADMIT IP TO THIS HOSP Is pt being admited?: Yes Condition: Stable Time of Disposition: 15:13 (Dr Ferguson/hosp)
[2018-02-09 14:27] LABS: Basophils # (Auto) 0.1 K/mm3 (0.0-0.1); Basophils % (Auto) 0.8 % (0.0-1.8); Eosinophils # (Auto) 0.3 K/mm3 (0.0-0.4); Eosinophils % (Auto) 3.3 % (0.0-4.3); Hematocrit 47.7 % (35.5-45.6); Hemoglobin 16.4 gm/dl (11.8-15.2); Lymphocytes # (Auto) 2.7 K/mm3 (1.2-5.4); Mean Corpuscular HGB Conc 34 % (32-34); Mean Corpuscular Hemoglobin 32 pg (28-32); Mean Corpuscular Volume 92 fl (84-94); Monocytes # (Auto) 0.6 K/mm3 (0.0-0.8); Monocytes % (Auto) 5.9 % (0.0-7.3); Platelet Count 214 K/mm3 (140-440); Red Blood Count 5.21 M/mm3 (3.65-5.03); Red Cell Distribution Width 15.3 % (13.2-15.2)
[2018-02-09 14:34] LABS: INR 0.94 (0.87-1.13)
[2018-02-09 14:45] LABS: BUN/Creatinine Ratio 8; Blood Urea Nitrogen 7 mg/dL (9-20); Calcium 8.8 mg/dL (8.4-10.2); Hemolysis Index 19
--- NOTE | 2018-02-09 15:20 | History and Physical Report ---
History of Present Illness Chief complaint: Its hard to breathe History of present illness: 52 YO Male with Asthma, COPD presents to ED for evaluation. Pt states that he has experienced shortness of breath for the past 1 week with worsening symptoms over the past 1 day. Pt acknowledges exposure to asthma triggers, and frequent nebulizer use. Pt seen and evaluated in ED and treated with supportive care, Supplemental oxygen, nubulizer therapy, IV steroids, and supportive care. Past History Past Medical History: COPD, other (Asthma) Past Surgical History: No surgical history, Other (reviewed) Social history: single. denies: smoking, alcohol abuse, prescription drug abuse , IV drug use Family history: no significant family history (reviewed) Medications and Allergies Allergies Allergy/AdvReac Type Severity Reaction Status Date / Time No Known Allergies Allergy Unverified 09/22/13 16:54 Home Medications Medication Instructions Recorded Confirmed Last Taken Type ALBUTEROL NEB's [Proventil 0.083% 2.5 mg IH Q3HRT PRN #30 nebu 01/04/17 Unknown Rx NEBS] Ipratropium/Albuterol Sulfate 1 ampul IH BID #30 ampul.neb 01/04/17 02/09/18 Unknown Rx [DUONEB *Not for PRN Use*] oxyCODONE /ACETAMINOPHEN [Percocet 1 tab PO Q6H PRN #30 tablet 01/04/17 Unknown Rx 5/325 mg] Levofloxacin [Levaquin TAB] 750 mg PO DAILY #5 tablet 12/29/17 02/09/18 Unknown Rx Ibuprofen [Motrin] 600 mg PO Q8H PRN 02/09/18 02/09/18 Unknown History Review of Systems Constitutional: no weight loss, no weight gain, no fever, no chills Ears, nose, mouth and throat: no ear pain, no ear discharge, no tinnitis, no decreased hearing, no nose pain, no nasal congestion, no nasal discharge Cardiovascular: shortness of breath, no chest pain, no orthopnea, no palpitations, no rapid/irregular heart beat, no edema Respiratory: shortness of breath, no cough, no cough with sputum, no excessive sputum Gastrointestinal: no abdominal pain, no nausea, no vomiting, no diarrhea, no constipation Genitourinary Male: no hematuria, no flank pain, no discharge, no urinary frequency, no urinary hesitancy Rectal: no pain, no incontinence, no bleeding Musculoskeletal: no neck stiffness, no neck pain, no shooting arm pain, no arm numbness/tingling, no low back pain, no shooting leg pain Integumentary: no rash, no pruritis, no redness, no sores, no wounds, no jaundice Neurological: no head injury, no transient paralysis, no paralysis, no weakness , no parathesias, no numbness, no tingling, no seizures, no syncope Psychiatric: no anxiety, no memory loss, no change in sleep habits, no sleep disturbances, no insomnia, no hypersomnia, no change in appetite, no change in libido, no suicidal ideation Endocrine: no cold intolerance, no heat intolerance, no polyphagia, no excessive thirst, no polydipsia, no polyuria Hematologic/Lymphatic: no easy bruising, no easy bleeding, no lymphadenopathy, no lymphedema Allergic/Immunologic: no urticaria, no allergic rhinitis, no wheezing, no persistent infections, no anaphylaxis, no angioedema Exam - Constitutional Vitals: Temp Pulse Resp BP Pulse Ox 98 F 100 H 30 H 142/100 96 02/09/18 13:58 02/09/18 14:08 02/09/18 14:08 02/09/18 14:08 02/09/18 14:09 General appearance: Present: mild distress - EENT Eyes: Present: PERRL ENT: hearing intact, clear oral mucosa - Neck Neck: Present: supple, normal ROM - Respiratory Respiratory effort: normal Respiratory: bilateral: wheezing - Cardiovascular Heart Sounds: Present: S1 & S2. Absent: rub, click - Extremities Extremities: pulses symmetrical, No edema Peripheral Pulses: within normal limits - Abdominal General gastrointestinal: Present: soft, non-tender, non-distended, normal bowel sounds Male genitourinary: Present: normal - Rectal Rectal Exam: normal exam-external/orifice - Integumentary Integumentary: Present: clear, warm, dry - Musculoskeletal Musculoskeletal: gait normal, strength equal bilaterally - Psychiatric Psychiatric: appropriate mood/affect, intact judgment & insight - Neurologic Neurologic: CNII-XII intact, moves all extremities Results - Labs CBC & Chem 7: 02/09/18 13:56 02/09/18 13:59 Labs: Abnormal lab results 05/16/18 05/16/18 Range/Units 13:56 13:59 RBC 5.21 H (3.65-5.03) M/mm3 Hgb 16.4 H (11.8-15.2) gm/dl Hct 47.7 H (35.5-45.6) % RDW 15.3 H (13.2-15.2) % BUN 7 L (9-20) mg/dL Assessment and Plan - Patient Problems (1) COPD exacerbation Current Visit: Yes Status: Acute
--- NOTE | 2018-02-09 15:23 | XRay Report ---
Single view chest: Compared to 12/28/17. History: Shortness of breath. Findings: Normal cardiomediastinal silhouette. Trachea is midline. No consolidation, pneumothorax or pleural effusion. Impression: No acute cardiopulmonary findings.
[2018-02-09] MEDS ORDERED: TYLENOL PO ONE (19:39)
[2018-02-09] MEDS ORDERED: DUONEB *Not for PRN Use IH ONE (19:39)
[2018-02-09 21:34] VITALS: BP 132/78
== END 2018-02-09 22:13 | disposition home or self-care (01) ==
LOC: ED 13:45
DX: J44.1 Chronic obstructive pulmonary disease with (acute) exacerbation (principal); C95.90 Leukemia, unspecified not having achieved remission
CPT/HCPCS: 36415; 71045; 80048; 82803; 85025; 85379; 85610; 93005; 93010; 94640; 96374; 96375; 99284; J2930; J3475

== ENCOUNTER 2018-02-14 12:55 | Inpatient (IN) | payer OTHER ==
[2018-02-14] MEDS ORDERED: DUONEB *Not for PRN Use IH ONE ×3 (13:17)
[2018-02-14 13:41] LABS: Basophils # (Auto) 0.1 K/mm3 (0.0-0.1); Basophils % (Auto) 0.8 % (0.0-1.8); Eosinophils # (Auto) 0.7 K/mm3 (0.0-0.4); Hematocrit 46.8 % (35.5-45.6); Hemoglobin 15.8 gm/dl (11.8-15.2); Lymphocytes # (Auto) 2.2 K/mm3 (1.2-5.4); Lymphocytes % (Auto) 33.8 % (13.4-35.0); Mean Corpuscular HGB Conc 34 % (32-34); Mean Corpuscular Hemoglobin 31 pg (28-32); Mean Corpuscular Volume 92 fl (84-94); Monocytes # (Auto) 0.4 K/mm3 (0.0-0.8); Monocytes % (Auto) 6.4 % (0.0-7.3); Platelet Count 206 K/mm3 (140-440); Red Blood Count 5.08 M/mm3 (3.65-5.03); Red Cell Distribution Width 15.5 % (13.2-15.2)
[2018-02-14 14:08] LABS: BUN/Creatinine Ratio 6; Blood Urea Nitrogen 7 mg/dL (9-20); Calcium 8.6 mg/dL (8.4-10.2); Hemolysis Index 24
--- NOTE | 2018-02-14 14:26 | XRay Report ---
PORTABLE CHEST: SOB, leukemia. An AP portable view of the chest demonstrates a normal cardiac contour considering the limits of this technique. The lungs are clear with no evidence of infiltrate, fluid or failure. No interval change compared to 02/09/18. IMPRESSION: Normal portable chest.
[2018-02-14] MEDS ORDERED: PROVENTIL IH ONE ×2 (15:37)
[2018-02-14] MEDS ORDERED: ATROVENT IH ONE ×2 (15:37)
[2018-02-14] MEDS ORDERED: MAGNESIUM SULFATE 2GM/50ML 2 GM/50 ML BAG IV ONE ×2 (15:53→16:04)
[2018-02-14] MEDS ORDERED: ATIVAN ONE (15:58)
[2018-02-14] MEDS ORDERED: KETALAR IV PRN (16:12)
[2018-02-14] MEDS ORDERED: LEVAQUIN 750MG/150ML 750 MG/150 ML BAG IV ONE (16:13)
[2018-02-14] MEDS ORDERED: ATIVAN IV ONE (16:13)
[2018-02-14] MEDS ORDERED: NACL 0.9% 1000 ML 1,000 ML IV ONE (16:13)
[2018-02-14] MEDS ORDERED: KETAMINE HCL IV ONE (17:00)
--- NOTE | 2018-02-14 18:24 | Emergency Department Report ---
ED General Adult HPI - General Chief complaint: Dyspnea/Respdistress Stated complaint: COPD Time Seen by Provider: 02/14/18 16:07 Source: patient Mode of arrival: Wheelchair Limitations: No Limitations - History of Present Illness Initial comments: This is a 49 year old male with a history of a "rare ischemia with a translocation. He has been previously treated with allopurinol and hydroxyurea. He has chronic atypical myeloid leukemia. He states he has never been intubated before. He has been admitted to this facility in status asthmaticus without BiPAP and the last time. He has been on BiPAP before. He was brought my attention after he was given serial nebs and Solu-Medrol in triage. He appeared to be getting worse and was placed in an acute care area. I found him in respiratory distress. He was still able to answer my questions in words but not full sentences but very tight and tachypneic. -: days(s) (last 2 days) Radiation: non-radiation Improves with: none Worsens with: none Associated Symptoms: denies other symptoms, cough (states productive of yellow sputum) Treatments Prior to Arrival: none - Related Data Home Medications Medication Instructions Recorded Confirmed Last Taken Ibuprofen [Motrin] 600 mg PO Q8H PRN 02/09/18 02/09/18 Unknown Previous Rx's Medication Instructions Recorded Last Taken Type ALBUTEROL NEB's [Proventil 0.083% 2.5 mg IH Q3HRT PRN #30 nebu 01/04/17 Unknown Rx NEBS] Ipratropium/Albuterol Sulfate 1 ampul IH BID #30 ampul.neb 01/04/17 Unknown Rx [DUONEB *Not for PRN Use*] oxyCODONE /ACETAMINOPHEN [Percocet 1 tab PO Q6H PRN #30 tablet 01/04/17 Unknown Rx 5/325 mg] Levofloxacin [Levaquin TAB] 750 mg PO DAILY #5 tablet 12/29/17 Unknown Rx Albuterol Sulfate [Albuterol 0.63% 0.63 mg IH TID PRN #1 box 02/09/18 Unknown Rx NEBS] Budesonide [Pulmicort] 0.5 mg IH Q12HR #1 box 02/09/18 Unknown Rx Ciprofloxacin [Ciprofloxacin ORAL 500 mg PO Q12H #12 ml 02/09/18 Unknown Rx LIQ] Ipratropium [Atrovent NEB] 0.5 mg IH Q8HRT #1 box 02/09/18 Unknown Rx Prednisone [predniSONE 10 mg 10 mg PO .TAPER #1 tab.ds.pk 02/09/18 Unknown Rx (6-Day Pack, 21 Tabs)] Allergies Allergy/AdvReac Type Severity Reaction Status Date / Time No Known Allergies Allergy Unverified 09/22/13 16:54 ED Review of Systems ROS: Stated complaint: COPD Other details as noted in HPI Constitutional: denies: chills, fever Eyes: denies: eye pain, eye discharge, vision change ENT: denies: ear pain, throat pain Respiratory: cough, shortness of breath, wheezing Cardiovascular: chest pain. denies: palpitations Endocrine: no symptoms reported Gastrointestinal: denies: abdominal pain, nausea, diarrhea Genitourinary: denies: urgency, dysuria Musculoskeletal: denies: back pain, joint swelling, arthralgia Skin: denies: rash, lesions Neurological: denies: headache, weakness, paresthesias Psychiatric: denies: anxiety, depression Hematological/Lymphatic: denies: easy bleeding, easy bruising ED Past Medical Hx - Past Medical History Hx Diabetes: No Hx Asthma: Yes Hx COPD: Yes Hx HIV: No - Social History Smoking Status: Former Smoker Substance Use Type: None - Medications Home Medications: Home Medications Medication Instructions Recorded Confirmed Last Taken Type ALBUTEROL NEB's [Proventil 0.083% 2.5 mg IH Q3HRT PRN #30 nebu 01/04/17 Unknown Rx NEBS] Ipratropium/Albuterol Sulfate 1 ampul IH BID #30 ampul.neb 01/04/17 02/09/18 Unknown Rx [DUONEB *Not for PRN Use*] oxyCODONE /ACETAMINOPHEN [Percocet 1 tab PO Q6H PRN #30 tablet 01/04/17 Unknown Rx 5/325 mg] Levofloxacin [Levaquin TAB] 750 mg PO DAILY #5 tablet 12/29/17 02/09/18 Unknown Rx Albuterol Sulfate [Albuterol 0.63% 0.63 mg IH TID PRN #1 box 02/09/18 Unknown Rx NEBS] Budesonide [Pulmicort] 0.5 mg IH Q12HR #1 box 02/09/18 Unknown Rx Ciprofloxacin [Ciprofloxacin ORAL 500 mg PO Q12H #12 ml 02/09/18 Unknown Rx LIQ] Ibuprofen [Motrin] 600 mg PO Q8H PRN 02/09/18 02/09/18 Unknown History Ipratropium [Atrovent NEB] 0.5 mg IH Q8HRT #1 box 02/09/18 Unknown Rx Prednisone [predniSONE 10 mg 10 mg PO .TAPER #1 tab.ds.pk 02/09/18 Unknown Rx (6-Day Pack, 21 Tabs)] ED Physical Exam - General Limitations: No Limitations General appearance: alert, in no apparent distress - Head Head exam: Present: atraumatic, normocephalic - Eye Eye exam: Present: normal appearance. Absent: scleral icterus - ENT ENT exam: Present: mucous membranes moist - Neck Neck exam: Present: normal inspection. Absent: tenderness, meningismus - Respiratory Respiratory exam: Present: respiratory distress, wheezes (bilateral), accessory muscle use - Cardiovascular Cardiovascular Exam: Present: regular rate, normal rhythm. Absent: systolic murmur, diastolic murmur, rubs, gallop - GI/Abdominal GI/Abdominal exam: Present: soft, normal bowel sounds. Absent: distended, tenderness, guarding, rebound, rigid - Rectal Rectal exam: Present: deferred - Extremities Exam Extremities exam: Present: normal inspection - Back Exam Back exam: Present: normal inspection - Neurological Exam Neurological exam: Present: alert, oriented X3, CN II-XII intact. Absent: motor sensory deficit - Psychiatric Psychiatric exam: Present: normal affect, anxious - Skin Skin exam: Present: warm, dry, intact, normal color. Absent: rash ED Course Vital Signs 02/14/18 02/14/18 02/14/18 13:09 13:24 14:02 Temperature 98.3 F Pulse Rate 106 H Pulse Rate [ 94 H 101 H Posterior Bilateral Throughout] Respiratory 28 H Rate Respiratory 25 H 24 Rate [Posterior Bilateral Throughout] Blood Pressure 154/101 O2 Sat by Pulse 95 Oximetry 02/14/18 02/14/18 02/14/18 15:40 16:47 16:50 Temperature Pulse Rate 108 H Pulse Rate [ 101 H 109 H Posterior Bilateral Throughout] Respiratory 29 H Rate Respiratory 26 H 27 H Rate [Posterior Bilateral Throughout] Blood Pressure 136/91 O2 Sat by Pulse 99 Oximetry - Reevaluation(s) Reevaluation #1: The patient was given a milligram of Ativan while BiPAP mask was placed. I remained at the bedside. He accepted it was given in-line treatment. His accessory muscle use has now resolved. His wheezing is only trace. He is moving adequate air. He is able to speak to me in full sentences. I'm going to leave him on BiPAP for now. He was near intubation. However, he is successfully turned the corner. I am going to enter ICU admission orders. Dr. Ferguson will be aware of his status. 02/14/18 18:36 ED Medical Decision Making - Lab Data Result diagrams: 02/14/18 13:27 02/14/18 13:27 Laboratory Results - last 24 hr 02/14/18 02/14/18 02/14/18 13:27 13:27 16:25 WBC 6.5 RBC 5.08 H Hgb 15.8 H Hct 46.8 H MCV 92 MCH 31 MCHC 34 RDW 15.5 H Plt Count 206 Lymph % (Auto) 33.8 [place] % (Auto) 6.4 Eos % (Auto) 11.0 H Baso % (Auto) 0.8 Lymph # 2.2 [place] # 0.4 Eos # 0.7 H Baso # 0.1 Seg Neutrophils % 48.0 Seg Neutrophils # 3.1 POC ABG pH 7.349 L POC ABG pCO2 41.3 POC ABG pO2 97 POC ABG HCO3 22.8 POC ABG Total CO2 24 POC ABG O2 Sat 97 POC ABG Base Excess -3 FiO2 50 Sodium 139 Potassium 4.4 Chloride 104.4 Carbon Dioxide 24 Anion Gap 15 BUN 7 L Creatinine 1.1 Estimated GFR > 60 BUN/Creatinine Ratio 6 Glucose 96 Calcium 8.6 Troponin T < 0.010 - EKG Data -: EKG Interpreted by Me EKG shows normal: sinus rhythm, axis, intervals, QRS complexes, ST-T waves Rate: tachycardia - EKG Data Interpretation: nonspecific ST-T wave bernardo - Radiology Data Radiology results: report reviewed Critical Care Time: Yes Critical care time in (mins) excluding proc time.: 60 Critical care attestation.: If time is entered above; I have spent that time in minutes in the direct care of this critically ill patient, excluding procedure time. 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
[2018-02-14] MEDS ORDERED: XOPENEX IH ONE (19:20)
--- NOTE | 2018-02-14 19:20 | History and Physical Report ---
History of Present Illness Date of admission: 02/14/18 18:42 Chief complaint: I cant breathe History of present illness: 52 YO Male with COPD, Asthma, CML presents to ED for evaluation. Pt states that he has experienced shortness of breath for the past 5 days with worsening symptoms over the past 2 days. Pt acknowledges productive cough with increased production of yellow sputum with frequent use of nebulizer therapy without relief. Pt denies fever, chills, CP, Palpitations, Syncope, BRBPR, unilateral leg swelling/calf pain, individual/family history of DVT/PE, hemoptysis, prolonged travel/immobility. Pt seen and evaluated in ED and found to havd COPD Exacerbation,with Respiratory failure. Pt initially admitted to ICU. Pt treated with supportive care and NIPPV. Past History Past Medical History: cancer, COPD Past Surgical History: No surgical history (reviewed) Social history: single. denies: smoking, alcohol abuse, prescription drug abuse , IV drug use Family history: hypertension Medications and Allergies Allergies Allergy/AdvReac Type Severity Reaction Status Date / Time No Known Allergies Allergy Unverified 09/22/13 16:54 Home Medications Medication Instructions Recorded Confirmed Last Taken Type ALBUTEROL NEB's [Proventil 0.083% 2.5 mg IH Q3HRT PRN #30 nebu 01/04/17 Unknown Rx NEBS] Ipratropium/Albuterol Sulfate 1 ampul IH BID #30 ampul.neb 01/04/17 02/14/18 Unknown Rx [DUONEB *Not for PRN Use*] oxyCODONE /ACETAMINOPHEN [Percocet 1 tab PO Q6H PRN #30 tablet 01/04/17 Unknown Rx 5/325 mg] Albuterol Sulfate [Albuterol 0.63% 0.63 mg IH TID PRN #1 box 02/09/18 02/14/18 Unknown Rx NEBS] Budesonide [Pulmicort] 0.5 mg IH Q12HR #1 box 02/09/18 02/14/18 Unknown Rx Ibuprofen [Motrin] 600 mg PO Q8H PRN 02/09/18 02/14/18 Unknown History Ipratropium [Atrovent NEB] 0.5 mg IH Q8HRT #1 box 02/09/18 02/14/18 Unknown Rx Prednisone [predniSONE 10 mg 10 mg PO .TAPER #1 tab.ds.pk 02/09/18 02/14/18 Unknown Rx (6-Day Pack, 21 Tabs)] Imatinib Mesylate [Gleevec] 100 mg PO DAILY 02/14/18 02/14/18 Unknown History Active Meds: Active Medications Sodium Chloride (Nacl 0.9% 1000 Ml) 1,000 mls @ 250 mls/hr IV ONCE ONE Stop: 02/14/18 20:12 Last Admin: 02/14/18 16:49 Dose: 250 mls/hr Ketamine HCl (Ketalar) 100 mg IV ONCE PRN PRN Reason: intubation Review of Systems Constitutional: no weight loss, no weight gain, no fever, no chills Ears, nose, mouth and throat: no ear pain, no ear discharge, no tinnitis, no decreased hearing, no nose pain, no nasal congestion Cardiovascular: no chest pain, no orthopnea, no palpitations, no lightheadedness Respiratory: cough with sputum, excessive sputum, no hemoptysis, no dyspnea on exertion Gastrointestinal: no abdominal pain, no nausea, no vomiting, no diarrhea Genitourinary Male: no hematuria, no flank pain, no discharge, no urinary hesitancy Rectal: no pain, no incontinence, no bleeding Musculoskeletal: no neck stiffness (/), no neck pain, no low back pain, no leg numbness/tingling, no redness of joints Integumentary: no pruritis, no redness, no sores, no wounds, no jaundice, no boils, no blisters Neurological: no head injury, no transient paralysis, no paralysis, no weakness , no seizures Psychiatric: no anxiety, no memory loss, no change in sleep habits, no sleep disturbances, no insomnia, no hypersomnia, no change in appetite Endocrine: no cold intolerance, no heat intolerance, no excessive thirst, no polydipsia, no nocturia, no flushing, no weight change Hematologic/Lymphatic: no easy bruising, no easy bleeding Exam - Constitutional Vitals: Temp Pulse Resp BP Pulse Ox 98.7 F 102 H 18 133/92 99 02/14/18 18:30 02/14/18 18:30 02/14/18 18:30 02/14/18 18:30 02/14/18 18:30 General appearance: Present: no acute distress, severe distress, well-nourished - EENT Eyes: Present: PERRL ENT: hearing intact, clear oral mucosa - Neck Neck: Present: supple, normal ROM - Respiratory Respiratory effort: labored, pursed lips, accessory muscle use Respiratory: bilateral: diminished, rhonchi - Cardiovascular Heart Sounds: Present: S1 & S2. Absent: rub, click - Extremities Extremities: pulses symmetrical, No edema Peripheral Pulses: within normal limits - Abdominal General gastrointestinal: Present: soft, non-tender, non-distended, normal bowel sounds Male genitourinary: Present: normal - Integumentary Integumentary: Present: clear, warm, dry - Musculoskeletal Musculoskeletal: gait normal, strength equal bilaterally - Psychiatric Psychiatric: appropriate mood/affect, intact judgment & insight - Neurologic Neurologic: CNII-XII intact, moves all extremities Results - Labs CBC & Chem 7: 02/14/18 13:27 02/14/18 13:27 Labs: Abnormal lab results 02/14/18 02/14/18 02/14/18 Range/Units 13:27 13:27 16:25 RBC 5.08 H (3.65-5.03) M/mm3 Hgb 15.8 H (11.8-15.2) gm/dl Hct 46.8 H (35.5-45.6) % RDW 15.5 H (13.2-15.2) % Eos % (Auto) 11.0 H (0.0-4.3) % Eos # 0.7 H (0.0-0.4) K/mm3 POC ABG pH 7.349 L (7.35-7.45) BUN 7 L (9-20) mg/dL Assessment and Plan - Patient Problems (1) Respiratory failure Current Visit: Yes Status: Acute Qualifiers: Chronicity: acute Plan to address problem: NIPPV, Supplemental oxygen, Nebulizer therapy, ,Steroid therapy,Abg, Chest x ray , Pulmonary consulted in ED, Pt admitted to ICD, but downgraded to telemetry, The high probability of a clinically significant, sudden or life threatening deterioration of the [pulmonary,neuro,cardiac] system(s) required my full and direct attention, intervention and personal management. The aggregate critical care time was [65] minutes. 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
[2018-02-14] MEDS ORDERED: ZOFRAN IV PRN (20:46)
[2018-02-14] MEDS ORDERED: PROVENTIL IH PRN (20:46)
[2018-02-14] MEDS ORDERED: SODIUM CHLORIDE FLUSH SYRINGE 10 ML IV PRN (20:46)
[2018-02-14] MEDS ORDERED: TYLENOL PO PRN (20:46)
[2018-02-14] MEDS: SODIUM CHLORIDE FLUSH SYRINGE 10 ML IV SCH (22:14)
[2018-02-14] MEDS: PEPCID PO SCH (22:14)
[2018-02-15] MEDS: PULMICORT IH SCH ×3 (00:56→20:32)
[2018-02-15 07:03] LABS: BUN/Creatinine Ratio 10; Blood Urea Nitrogen 9 mg/dL (9-20); Calcium 8.7 mg/dL (8.4-10.2); Hemolysis Index 5
[2018-02-15] MEDS ORDERED: LEVAQUIN 500MG/100ML 500 MG/100 ML BAG IV SCH (10:00)
[2018-02-15] MEDS: PEPCID PO SCH ×2 (11:29→22:50)
--- NOTE | 2018-02-15 13:21 | Consultation ---
History of Present Illness Consult date: 02/15/18 Requesting physician: DAVID SOMMER Reason for consult: dyspnea, asthma, hypoxemia History of present illness: 52 y/o male with CML and Asthma/COPD admitted with acute respiratory failure. patient denies any sick contacts. Feels that flare was started by pollen exposure. CXR is clear but lungs are very tight. Started on IV steroids and some nebs. Still with some labored breathing but I assume this is improved compared to last night. Past History Past Medical History: cancer, COPD Past Surgical History: No surgical history (reviewed) Social history: single. denies: smoking, alcohol abuse, prescription drug abuse , IV drug use Family history: hypertension Medications and Allergies Allergies Allergy/AdvReac Type Severity Reaction Status Date / Time No Known Allergies Allergy Unverified 09/22/13 16:54 Home Medications Medication Instructions Recorded Confirmed Last Taken Type ALBUTEROL NEB's [Proventil 0.083% 2.5 mg IH Q3HRT PRN #30 nebu 01/04/17 Unknown Rx NEBS] Ipratropium/Albuterol Sulfate 1 ampul IH BID #30 ampul.neb 01/04/17 02/14/18 Unknown Rx [DUONEB *Not for PRN Use*] oxyCODONE /ACETAMINOPHEN [Percocet 1 tab PO Q6H PRN #30 tablet 01/04/17 Unknown Rx 5/325 mg] Albuterol Sulfate [Albuterol 0.63% 0.63 mg IH TID PRN #1 box 02/09/18 02/14/18 Unknown Rx NEBS] Budesonide [Pulmicort] 0.5 mg IH Q12HR #1 box 02/09/18 02/14/18 Unknown Rx Ibuprofen [Motrin] 600 mg PO Q8H PRN 02/09/18 02/14/18 Unknown History Ipratropium [Atrovent NEB] 0.5 mg IH Q8HRT #1 box 02/09/18 02/14/18 Unknown Rx Prednisone [predniSONE 10 mg 10 mg PO .TAPER #1 tab.ds.pk 02/09/18 02/14/18 Unknown Rx (6-Day Pack, 21 Tabs)] Imatinib Mesylate [Gleevec] 100 mg PO DAILY 02/14/18 02/14/18 Unknown History Active Meds: Active Medications Acetaminophen (Tylenol) 650 mg PO Q4H PRN PRN Reason: Pain MILD(1-3)/Fever >100.5/[facility] Albuterol (Proventil) 2.5 mg IH Q4HRT PRN PRN Reason: Shortness Of Breath Arformoterol Tartrate (Brovana Nebu) 15 mcg IH Q12HRT [facility] Budesonide (Pulmicort) 0.5 mg IH Q12HRT [facility] Last Admin: 02/15/18 09:13 Dose: 0.5 mg Famotidine (Pepcid) 20 mg PO BID [facility] Last Admin: 02/15/18 11:29 Dose: 20 mg Ketamine HCl (Ketalar) 100 mg IV ONCE PRN PRN Reason: intubation Levofloxacin (Levaquin) 500 mg PO Q24HR [facility] Methylprednisolone Sodium Succinate (Solu-Medrol) 60 mg IV Q6HR [facility] Ondansetron HCl (Zofran) 4 mg IV Q8H PRN PRN Reason: Nausea And Vomiting Oxycodone/Acetaminophen (Percocet 5/325) 1 tab PO Q6H PRN PRN Reason: Pain , Severe (7-10) Sodium Chloride (Sodium Chloride Flush Syringe 10 Ml) 10 ml IV BID [facility] Last Admin: 02/14/18 22:14 Dose: 10 ml Sodium Chloride (Sodium Chloride Flush Syringe 10 Ml) 10 ml IV PRN PRN PRN Reason: LINE FLUSH Review of Systems All systems: negative Physical Examination Vital signs: Vital Signs Temp Pulse Resp BP Pulse Ox 98.3 F 106 H 28 H 154/101 95 02/14/18 13:09 02/14/18 13:09 02/14/18 13:09 02/14/18 13:09 02/14/18 13:09 General appearance: appears uncomfortable Eyes: non-icteric Neck: supple, other (but using some accessory muscles to breathe) Effort: mildly labored Ascultation: Bilateral: diminished breath sounds, wheezes Percussion: Bilateral: not dull Tactile fremitus: Bilateral: normal Cardiovascular: regular rate and rhythm Gastrointestinal: normoactive bowel sounds, soft Extremities: no edema, pink and warm Results - Laboratory Findings CBC and BMP: 02/14/18 13:27 02/15/18 05:59 ABG POC ABG pH 7.349 (7.35-7.45) L 02/14/18 16:25 POC ABG pCO2 41.3 (35-45) 02/14/18 16:25 POC ABG pO2 97 (80-105) 02/14/18 16:25 POC ABG HCO3 22.8 02/14/18 16:25 POC ABG Total CO2 24 02/14/18 16:25 POC ABG O2 Sat 97 02/14/18 16:25 Abnormal lab findings: Abnormal Labs 02/14/18 02/14/18 02/14/18 13:27 13:27 16:25 RBC 5.08 H Hgb 15.8 H Hct 46.8 H RDW 15.5 H Eos % (Auto) 11.0 H Eos # 0.7 H POC ABG pH 7.349 L Sodium BUN 7 L Glucose 02/15/18 05:59 RBC Hgb Hct RDW Eos % (Auto) Eos # POC ABG pH Sodium 135 L BUN Glucose 147 H - Diagnostic Findings Chest x-ray: image reviewed (clear) Assessment and Plan 52 y/o male with acute respiratory failure secondary to asthma exacerbation. 1. Increase steroids to 60q6 2. Added Brovana therapy as well 3. Continue q4 hour nebs 4. Bipap PRN 5. Low threshold for transfer and intubation if needed
--- NOTE | 2018-02-15 18:09 | Progress Note ---
Assessment and Plan Assessment and plan: Patient is 52 yo man with a history of asthma, copd, cml who pw sob -AECOPD: iv steroids, duo nebs, iv abx -Acute hypoxic respiratory failure: treat with o2, pulm is following -H/o CML: monitor wbc closely History Interval history: Patient was seen and examined. Follow-up on current diagnosis. Overnight uneventful. Patient denies any chest pain, nausea/vomiting or severe headaches. Imaging, nursing note, chart, labs and old chart reviewed. Discussed with patient. Hospitalist Physical - Constitutional Vitals: Temp Pulse Resp BP Pulse Ox 98.1 F 85 18 119/79 97 02/15/18 16:50 02/15/18 16:50 02/15/18 16:50 02/15/18 16:50 02/15/18 16:50 General appearance: Present: no acute distress, well-nourished Results - Labs CBC & Chem 7: 02/14/18 13:27 02/15/18 05:59 Labs: Laboratory Last Values WBC 6.5 K/mm3 (4.5-11.0) 02/14/18 13:27 RBC 5.08 M/mm3 (3.65-5.03) H 02/14/18 13:27 Hgb 15.8 gm/dl (11.8-15.2) H 02/14/18 13:27 Hct 46.8 % (35.5-45.6) H 02/14/18 13:27 MCV 92 fl (84-94) 02/14/18 13:27 MCH 31 pg (28-32) 02/14/18 13:27 MCHC 34 % (32-34) 02/14/18 13:27 RDW 15.5 % (13.2-15.2) H 02/14/18 13:27 Plt Count 206 K/mm3 (140-440) 02/14/18 13:27 Lymph % (Auto) 33.8 % (13.4-35.0) 02/14/18 13:27 [place] % (Auto) 6.4 % (0.0-7.3) 02/14/18 13:27 Eos % (Auto) 11.0 % (0.0-4.3) H 02/14/18 13:27 Baso % (Auto) 0.8 % (0.0-1.8) 02/14/18 13:27 Lymph # 2.2 K/mm3 (1.2-5.4) 02/14/18 13:27 [place] # 0.4 K/mm3 (0.0-0.8) 02/14/18 13:27 Eos # 0.7 K/mm3 (0.0-0.4) H 02/14/18 13:27 Baso # 0.1 K/mm3 (0.0-0.1) 02/14/18 13:27 Seg Neutrophils % 48.0 % (40.0-70.0) 02/14/18 13:27 Seg Neutrophils # 3.1 K/mm3 (1.8-7.7) 02/14/18 13:27 POC ABG pH 7.349 (7.35-7.45) L 02/14/18 16:25 POC ABG pCO2 41.3 (35-45) 02/14/18 16:25 POC ABG pO2 97 (80-105) 02/14/18 16:25 POC ABG HCO3 22.8 02/14/18 16:25 POC ABG Total CO2 24 02/14/18 16:25 POC ABG O2 Sat 97 02/14/18 16:25 POC ABG Base Excess -3 02/14/18 16:25 FiO2 50 % 02/14/18 16:25 Sodium 135 mmol/L (137-145) L 02/15/18 05:59 Potassium 4.5 mmol/L (3.6-5.0) 02/15/18 05:59 Chloride 99.6 mmol/L (98-107) 02/15/18 05:59 Carbon Dioxide 22 mmol/L (22-30) 02/15/18 05:59 Anion Gap 18 mmol/L 02/15/18 05:59 BUN 9 mg/dL (9-20) 02/15/18 05:59 Creatinine 0.9 mg/dL (0.8-1.5) 02/15/18 05:59 Estimated GFR > 60 ml/min 02/15/18 05:59 BUN/Creatinine Ratio 10 % 02/15/18 05:59 Glucose 147 mg/dL (75-100) H 02/15/18 05:59 Calcium 8.7 mg/dL (8.4-10.2) 02/15/18 05:59 Troponin T < 0.010 ng/mL (0.00-0.029) 02/14/18 13:27
[2018-02-15] MEDS: BROVANA NEBU IH SCH (20:32)
[2018-02-15] MEDS: SODIUM CHLORIDE FLUSH SYRINGE 10 ML IV SCH (22:50)
[2018-02-15] MEDS: PERCOCET 5/325 PO PRN (23:22)
[2018-02-16] MEDS: PULMICORT IH SCH ×2 (08:14→19:57)
[2018-02-16] MEDS: BROVANA NEBU IH SCH ×2 (08:14→19:57)
[2018-02-16] MEDS: LEVAQUIN PO SCH (10:18)
[2018-02-16] MEDS: PERCOCET 5/325 PO PRN ×2 (10:19→21:39)
[2018-02-16] MEDS: PEPCID PO SCH ×2 (10:19→21:40)
--- NOTE | 2018-02-16 14:31 | Progress Note ---
Assessment and Plan 52 y/o male with acute respiratory failure secondary to asthma exacerbation. 1. Continue steroids at 60q6 2. Continue BID brovana and pulmicort 3. Continue q4 hour nebs, can likely space out tomorrow 4. Bipap PRN 5. Have patient ambulate in halls tomorrow, pending results of walk test and how patient feels, may be ready for discharge. Will need prolonged steroid taper 60x4, 40x4, 20x4, 10x4 then stop. Can follow up with Dr. Mahmood or [place] in 10-14 days. Will need a script for symbicort 160 2 puffs BID at discharge. Subjective Date of service: 02/16/18 Interval history: No acute events. Feels much better today. Work of breathing is easier. Objective Vital Signs - 12hr 02/16/18 02/16/18 02/16/18 05:42 08:16 08:18 Temperature 98.4 F 97.5 F L Pulse Rate 77 72 Pulse Rate [ 81 Bilateral Throughout] Respiratory 18 18 Rate Respiratory 18 Rate [Bilateral Throughout] Blood Pressure 131/82 126/78 O2 Sat by Pulse 97 94 96 Oximetry 02/16/18 02/16/18 02/16/18 08:26 08:40 10:19 Temperature Pulse Rate 77 Pulse Rate [ 79 Bilateral Throughout] Respiratory 20 Rate Respiratory 18 Rate [Bilateral Throughout] Blood Pressure O2 Sat by Pulse Oximetry Constitutional: appears uncomfortable Eyes: non-icteric Neck: supple, other (but using some accessory muscles to breathe) Effort: mildly labored Ascultation: Bilateral: diminished breath sounds, wheezes Percussion: Bilateral: not dull Tactile fremitus: Bilateral: normal Cardiovascular: regular rate and rhythm Gastrointestinal: normoactive bowel sounds, soft Extremities: no edema, pink and warm CBC and BMP: 02/14/18 13:27 02/15/18 05:59 ABG, PT/INR, D-dimer: ABG POC ABG pH 7.349 (7.35-7.45) L 02/14/18 16:25 POC ABG pCO2 41.3 (35-45) 02/14/18 16:25 POC ABG pO2 97 (80-105) 02/14/18 16:25 POC ABG HCO3 22.8 02/14/18 16:25 POC ABG Total CO2 24 02/14/18 16:25 POC ABG O2 Sat 97 02/14/18 16:25 Abnormal lab findings: Abnormal Labs 02/14/18 02/14/18 02/14/18 13:27 13:27 16:25 RBC 5.08 H Hgb 15.8 H Hct 46.8 H RDW 15.5 H Eos % (Auto) 11.0 H Eos # 0.7 H POC ABG pH 7.349 L Sodium BUN 7 L Glucose POC Glucose 02/15/18 02/15/18 05:59 21:56 RBC Hgb Hct RDW Eos % (Auto) Eos # POC ABG pH Sodium 135 L BUN Glucose 147 H POC Glucose 139 H
--- NOTE | 2018-02-16 16:00 | Progress Note ---
Assessment and Plan Assessment and plan: Patient is 52 yo man with a history of asthma, copd, cml who pw sob -AECOPD: iv steroids, duo nebs, iv abx -Acute hypoxic respiratory failure: treat with o2, pulm is following -H/o CML: monitor wbc closely History Interval history: Patient was seen and examined. Follow-up on current diagnosis. Overnight uneventful. Patient denies any chest pain, nausea/vomiting or severe headaches. Imaging, nursing note, chart, labs and old chart reviewed. Discussed with patient. Hospitalist Physical - Physical exam Narrative exam: Patient is 52 yo man with a history of asthma, copd, cml who pw sob -AECOPD: iv steroids, duo nebs, - Constitutional Vitals: Temp Pulse Resp BP Pulse Ox 97.5 F L 77 20 126/78 96 02/16/18 08:18 02/16/18 08:40 02/16/18 10:19 02/16/18 08:18 02/16/18 08:18 General appearance: Present: no acute distress, well-nourished Results - Labs CBC & Chem 7: 02/14/18 13:27 02/15/18 05:59 Labs: Laboratory Last Values WBC 6.5 K/mm3 (4.5-11.0) 02/14/18 13:27 RBC 5.08 M/mm3 (3.65-5.03) H 02/14/18 13:27 Hgb 15.8 gm/dl (11.8-15.2) H 02/14/18 13:27 Hct 46.8 % (35.5-45.6) H 02/14/18 13:27 MCV 92 fl (84-94) 02/14/18 13:27 MCH 31 pg (28-32) 02/14/18 13:27 MCHC 34 % (32-34) 02/14/18 13:27 RDW 15.5 % (13.2-15.2) H 02/14/18 13:27 Plt Count 206 K/mm3 (140-440) 02/14/18 13:27 Lymph % (Auto) 33.8 % (13.4-35.0) 02/14/18 13:27 [place] % (Auto) 6.4 % (0.0-7.3) 02/14/18 13:27 Eos % (Auto) 11.0 % (0.0-4.3) H 02/14/18 13:27 Baso % (Auto) 0.8 % (0.0-1.8) 02/14/18 13:27 Lymph # 2.2 K/mm3 (1.2-5.4) 02/14/18 13:27 [place] # 0.4 K/mm3 (0.0-0.8) 02/14/18 13:27 Eos # 0.7 K/mm3 (0.0-0.4) H 02/14/18 13:27 Baso # 0.1 K/mm3 (0.0-0.1) 02/14/18 13:27 Seg Neutrophils % 48.0 % (40.0-70.0) 02/14/18 13:27 Seg Neutrophils # 3.1 K/mm3 (1.8-7.7) 02/14/18 13:27 POC ABG pH 7.349 (7.35-7.45) L 02/14/18 16:25 POC ABG pCO2 41.3 (35-45) 02/14/18 16:25 POC ABG pO2 97 (80-105) 02/14/18 16:25 POC ABG HCO3 22.8 02/14/18 16:25 POC ABG Total CO2 24 02/14/18 16:25 POC ABG O2 Sat 97 02/14/18 16:25 POC ABG Base Excess -3 02/14/18 16:25 FiO2 50 % 02/14/18 16:25 Sodium 135 mmol/L (137-145) L 02/15/18 05:59 Potassium 4.5 mmol/L (3.6-5.0) 02/15/18 05:59 Chloride 99.6 mmol/L (98-107) 02/15/18 05:59 Carbon Dioxide 22 mmol/L (22-30) 02/15/18 05:59 Anion Gap 18 mmol/L 02/15/18 05:59 BUN 9 mg/dL (9-20) 02/15/18 05:59 Creatinine 0.9 mg/dL (0.8-1.5) 02/15/18 05:59 Estimated GFR > 60 ml/min 02/15/18 05:59 BUN/Creatinine Ratio 10 % 02/15/18 05:59 Glucose 147 mg/dL (75-100) H 02/15/18 05:59 POC Glucose 139 (70-105) H 02/15/18 21:56 Calcium 8.7 mg/dL (8.4-10.2) 02/15/18 05:59 Troponin T < 0.010 ng/mL (0.00-0.029) 02/14/18 13:27
[2018-02-16] MEDS: SODIUM CHLORIDE FLUSH SYRINGE 10 ML IV SCH ×2 (17:43→21:41)
[2018-02-16] MEDS: ROBITUSSIN AC PO PRN ×2 (17:44→23:51)
[2018-02-17] MEDS: PERCOCET 5/325 PO PRN ×3 (05:47→19:05)
[2018-02-17] MEDS: BROVANA NEBU IH SCH (08:31)
[2018-02-17] MEDS: PULMICORT IH SCH (08:31)
[2018-02-17 10:02] VITALS: BP 136/84
[2018-02-17] MEDS: PEPCID PO SCH (10:47)
[2018-02-17] MEDS: LEVAQUIN PO SCH (10:48)
[2018-02-17] MEDS: SODIUM CHLORIDE FLUSH SYRINGE 10 ML IV SCH (10:49)
--- NOTE | 2018-02-17 13:15 | Progress Note ---
Assessment and Plan Assessment and plan: Patient is 52 yo man with a history of asthma, copd, cml who pw sob -AECOPD: iv steroids, duo nebs, iv abx -Acute hypoxic respiratory failure: treat with o2, pulm is following -H/o CML: monitor wbc closely Still on 2.5 liters of o2, asked Respiratory Therapist to try to wean off o2, keep sat 88% or greater. D/c in 1-2 days History Interval history: Patient was seen and examined. Follow-up on current diagnosis. Overnight uneventful. Patient denies any chest pain, nausea/vomiting or severe headaches. Imaging, nursing note, chart, labs and old chart reviewed. Discussed with patient. Hospitalist Physical - Physical exam Narrative exam: Patient is 52 yo man with a history of asthma, copd, cml who pw sob -AECOPD: iv steroids, duo nebs, - Constitutional Vitals: Temp Pulse Resp BP Pulse Ox 97.6 F 94 H 16 136/84 96 02/17/18 08:17 02/17/18 08:40 02/17/18 08:40 02/17/18 08:17 02/17/18 08:32 General appearance: Present: no acute distress, well-nourished Results - Labs CBC & Chem 7: 02/14/18 13:27 02/15/18 05:59 Labs: Laboratory Last Values WBC 6.5 K/mm3 (4.5-11.0) 02/14/18 13:27 RBC 5.08 M/mm3 (3.65-5.03) H 02/14/18 13:27 Hgb 15.8 gm/dl (11.8-15.2) H 02/14/18 13:27 Hct 46.8 % (35.5-45.6) H 02/14/18 13:27 MCV 92 fl (84-94) 02/14/18 13:27 MCH 31 pg (28-32) 02/14/18 13:27 MCHC 34 % (32-34) 02/14/18 13:27 RDW 15.5 % (13.2-15.2) H 02/14/18 13:27 Plt Count 206 K/mm3 (140-440) 02/14/18 13:27 Lymph % (Auto) 33.8 % (13.4-35.0) 02/14/18 13:27 [place] % (Auto) 6.4 % (0.0-7.3) 02/14/18 13:27 Eos % (Auto) 11.0 % (0.0-4.3) H 02/14/18 13:27 Baso % (Auto) 0.8 % (0.0-1.8) 02/14/18 13:27 Lymph # 2.2 K/mm3 (1.2-5.4) 02/14/18 13:27 [place] # 0.4 K/mm3 (0.0-0.8) 02/14/18 13:27 Eos # 0.7 K/mm3 (0.0-0.4) H 02/14/18 13:27 Baso # 0.1 K/mm3 (0.0-0.1) 02/14/18 13:27 Seg Neutrophils % 48.0 % (40.0-70.0) 02/14/18 13: Seg Neutrophils # 3.1 K/mm3 (1.8-7.7) 02/14/18 13:27 POC ABG pH 7.349 (7.35-7.45) L 02/14/18 16:25 POC ABG pCO2 41.3 (35-45) 02/14/18 16:25 POC ABG pO2 97 (80-105) 02/14/18 16:25 POC ABG HCO3 22.8 02/14/18 16:25 POC ABG Total CO2 24 02/14/18 16:25 POC ABG O2 Sat 97 02/14/18 16:25 POC ABG Base Excess -3 02/14/18 16:25 FiO2 50 % 02/14/18 16:25 Sodium 135 mmol/L (137-145) L 02/15/18 05:59 Potassium 4.5 mmol/L (3.6-5.0) 02/15/18 05:59 Chloride 99.6 mmol/L (98-107) 02/15/18 05:59 Carbon Dioxide 22 mmol/L (22-30) 02/15/18 05:59 Anion Gap 18 mmol/L 02/15/18 05:59 BUN 9 mg/dL (9-20) 02/15/18 05:59 Creatinine 0.9 mg/dL (0.8-1.5) 02/15/18 05:59 Estimated GFR > 60 ml/min 02/15/18 05:59 BUN/Creatinine Ratio 10 % 02/15/18 05:59 Glucose 147 mg/dL (75-100) H 02/15/18 05:59 POC Glucose 108 (70-105) H 02/17/18 12:38 Calcium 8.7 mg/dL (8.4-10.2) 02/15/18 05:59 Troponin T < 0.010 ng/mL (0.00-0.029) 02/14/18 13:27
--- NOTE | 2018-02-17 13:50 | Progress Note ---
Assessment and Plan 52 y/o male with acute respiratory failure secondary to asthma exacerbation. No objection to discharge today. Will arrange follow up in our office. Recs below for Medication at discharge. 1. Continue steroids at 60q6 2. Continue BID brovana and pulmicort 3. Continue q4 hour nebs, can likely space out tomorrow 4. Bipap PRN 5. Have patient ambulate in halls tomorrow, pending results of walk test and how patient feels, may be ready for discharge. Will need prolonged steroid taper 60x4, 40x4, 20x4, 10x4 then stop. Can follow up with Dr. Mahmood or [place]rose in 10-14 days. Will need a script for symbicort 160 2 puffs BID at discharge. Subjective Date of service: 02/17/18 Interval history: No acute events overnight. Just walked by staff and sats are stable off oxygen. Objective Vital Signs - 12hr 02/17/18 02/17/18 02/17/18 04:37 05:47 08:17 Temperature 97.5 F L 97.6 F Pulse Rate 71 75 Pulse Rate [ Bilateral Throughout] Respiratory 18 20 20 Rate Respiratory Rate [Bilateral Throughout] Blood Pressure 130/89 136/84 O2 Sat by Pulse 97 92 Oximetry 02/17/18 02/17/18 02/17/18 08:31 08:32 08:40 Temperature Pulse Rate Pulse Rate [ 83 94 H Bilateral Throughout] Respiratory Rate Respiratory 16 16 Rate [Bilateral Throughout] Blood Pressure O2 Sat by Pulse 96 Oximetry Constitutional: appears uncomfortable Eyes: non-icteric Neck: supple, other (but using some accessory muscles to breathe) Effort: mildly labored Ascultation: Bilateral: diminished breath sounds, wheezes Percussion: Bilateral: not dull Tactile fremitus: Bilateral: normal Cardiovascular: regular rate and rhythm Gastrointestinal: normoactive bowel sounds, soft Extremities: no edema, pink and warm CBC and BMP: 02/14/18 13:27 02/15/18 05:59 ABG, PT/INR, D-dimer: ABG POC ABG pH 7.349 (7.35-7.45) L 02/14/18 16:25 POC ABG pCO2 41.3 (35-45) 02/14/18 16:25 POC ABG pO2 97 (80-105) 02/14/18 16:25 POC ABG HCO3 22.8 02/14/18 16:25 POC ABG Total CO2 24 02/14/18 16:25 POC ABG O2 Sat 97 02/14/18 16:25 Abnormal lab findings: Abnormal Labs 02/14/18 02/14/18 02/14/18 13:27 13:27 16:25 RBC 5.08 H Hgb 15.8 H Hct 46.8 H RDW 15.5 H Eos % (Auto) 11.0 H Eos # 0.7 H POC ABG pH 7.349 L Sodium BUN 7 L Glucose POC Glucose 02/15/18 02/15/18 02/17/18 05:59 21:56 12:38 RBC Hgb Hct RDW Eos % (Auto) Eos # POC ABG pH Sodium 135 L BUN Glucose 147 H POC Glucose 139 H 108 H
--- NOTE | 2018-02-17 14:02 | Discharge Summary ---
Providers - Providers Date of Admission: 02/14/18 18:42 Date of discharge: 02/17/18 Attending physician: DT TAMAYO 02/14/18 18:44 Consult to Physician [CONS] Urgent Comment: Consulting Provider: LADONNA BAUMAN Physician Instructions: Reason For Exam: status asthmaticus on BiPAP Primary care physician: [employer] Hospitalization Condition: Stable Hospital course: Patient is 52 yo man with a history of asthma, copd, cml who pw sob -AECOPD: iv steroids, duo nebs, iv abx -Acute hypoxic respiratory failure: treat with o2, pulm is following -H/o CML: monitor wbc closely o2 weaned off, 94% without o2 with ambulation Disposition: DC-01 TO HOME OR SELFCARE Time spent for discharge: 42 min Core Measure Documentation - Palliative Care Palliative Care/ Comfort Measures: Not Applicable - Core Measures Any of the following diagnoses?: none - VTE Discharge Requirements Deep Vein Thrombosis/Pulmonary Embolism Present on Admission: No Has pt received <5 days of overlap therapy or INR<2.0: No Anticoagulant overlap therapy prescribed at discharge: No Contraindication No Overlap Therapy order at DC: Not Indicated Exam - Constitutional Vitals: Temp Pulse Resp BP Pulse Ox 97.6 F 94 H 16 136/84 96 02/17/18 08:17 02/17/18 08:40 02/17/18 08:40 02/17/18 08:17 02/17/18 08:32 General appearance: Present: no acute distress - EENT Eyes: Present: PERRL ENT: hearing intact, clear oral mucosa - Neck Neck: Present: supple, normal ROM - Respiratory Respiratory effort: normal Respiratory: bilateral: CTA - Cardiovascular Rhythm: regular Heart Sounds: Present: S1 & S2 - Abdominal General gastrointestinal: Present: non-tender, non-distended, normal bowel sounds - Musculoskeletal Musculoskeletal: strength equal bilaterally - Psychiatric Psychiatric: appropriate mood/affect, cooperative - Neurologic Neurologic: CNII-XII intact, no focal deficits Plan Activity: other (no strenous activity until cleared by Lung doctors) Diet: low salt Follow up with: PRIMARY CARE, [Primary Care Provider] - 3-5 Days NATIVIDAD PHIPPS MD [Staff Physician] - 10 Days Prescriptions: ALBUTEROL NEB's [Proventil 0.083% NEBS] 2.5 mg IH Q4HRT PRN #30 nebu PRN Reason: Shortness Of Breath Budesonide/Formoterol Fumarate [Symbicort 160-4.5 Mcg Inhaler] 10.2 gm IH BID # 1 hfa.aer.ad guaiFENesin/CODEINE [Robitussin AC] 10 ml PO Q4H PRN 5 Days #30 oral.liqd PRN Reason: Cough Levofloxacin [Levaquin TAB] 500 mg PO Q24HR #3 tablet oxyCODONE /ACETAMINOPHEN [Percocet 5/325 mg] 1 tab PO Q6H PRN #10 tablet PRN Reason: Pain , Severe (7-10) predniSONE [Deltasone] 1 dose PO QDAY #90 tab
== END 2018-02-17 19:05 | disposition home or self-care (01) | DRG 189 ==
LOC: ED 12:55 → CC1 18:42 → 4A 20:58
PROVIDERS: ADMIT Internal Medicine; ATTEND Internal Medicine
PROC: 4A033R1 Measurement of Arterial Saturation, Peripheral, Percutaneous Approach (ICD-10-PCS; principal; 2018-02-14)
PROC: 5A09357 Assistance with Respiratory Ventilation, Less than 24 Consecutive Hours, Continuous Positive Airway Pressure (ICD-10-PCS; 2018-02-14)
DX: J96.01 Acute respiratory failure with hypoxia (principal); J45.901 Unspecified asthma with (acute) exacerbation; J44.1 Chronic obstructive pulmonary disease with (acute) exacerbation; C92.10 Chronic myeloid leukemia, BCR/ABL-positive, not having achieved remission
CPT/HCPCS: 36415; 71046; 80048; 82803; 82962; 84484; 85025; 93005; 93010; 94640; 94644; 94760; 99291; J1956; J2060; J2920; J2930; J3475; J7030

== ENCOUNTER 2019-08-29 15:16 | Inpatient (IN) | payer MEDICAID, SELFPAY ==
--- NOTE | 2019-08-29 15:37 | Event Note ---
ED Screening Note Date of service: 08/29/19 Time: 15:36 ED Screening Note: 53 y o male with leukemia and COPD presents cc of sob and chest pain x 2 days This initial assessment/diagnostic orders/clinical plan/treatment(s) is/are subject to change based on patients health status, clinical progression and re- assessment by fellow clinical providers in the ED. Further treatment and workup at subsequent clinical providers discretion. Patient/guardian urged not to elope from the ED as their condition may be serious if not clinically assessed and managed. Initial orders include: labs,cxr main side eval
[2019-08-29] MEDS ORDERED: SODIUM CHLORIDE 0.9% 1000 ML 1,000 ML IV ONE (16:18)
[2019-08-29] MEDS ORDERED: methylPREDNISolone Sod Succinate 125 MG/2 ML INJ IV ONE (16:18)
[2019-08-29] MEDS ORDERED: EPINEPHrine/PF (1:1,000) 1 MG/1 ML INJ SUB-Q ONE ×2 (16:18→19:06)
[2019-08-29] MEDS ORDERED: IPRATROPIUM 0.02% NEBU 2.5 ML IH ONE (16:18)
[2019-08-29] MEDS ORDERED: MAGNESIUM SULFATE 2 GM/50 ML BAG IV ONE (16:18)
[2019-08-29] MEDS ORDERED: ALBUTEROL 2.5 MG/3 ML NEBU IH ONE ×2 (16:18→19:05)
[2019-08-29] MEDS ORDERED: ACETAMINOPHEN 325 MG/10.15 ML ORAL LIQD UNIT DOSE PO ONE (16:18)
[2019-08-29 16:19] LABS: Basophils # (Auto) 0.1 K/mm3 (0.0-0.1); Basophils % (Auto) 0.7 % (0.0-1.8); Eosinophils # (Auto) 0.3 K/mm3 (0.0-0.4); Hematocrit 55.1 % (35.5-45.6); Lymphocytes % (Auto) 24.7 % (13.4-35.0); Mean Corpuscular HGB Conc 33 % (32-34); Mean Corpuscular Volume 96 fl (84-94); Monocytes # (Auto) 0.7 K/mm3 (0.0-0.8); Monocytes % (Auto) 8.1 % (0.0-7.3); Platelet Count 189 K/mm3 (140-440); Red Blood Count 5.77 M/mm3 (3.65-5.03); Red Cell Distribution Width 14.5 % (13.2-15.2)
[2019-08-29 16:20] LABS: Creatine Kinase MB 16.1 ng/mL (0.0-4.0)
--- NOTE | 2019-08-29 16:20 | Emergency Department Report ---
ED Shortness of Breath HPI - General Chief Complaint: Dyspnea/Respdistress Stated Complaint: SOB/COPD Time Seen by Provider: 08/29/19 16:11 Source: patient, RN notes reviewed, old records reviewed Mode of arrival: Ambulatory Limitations: No Limitations - History of Present Illness Initial Comments: Primary care Dr.: Dr Fatima Past medical history: Asthma, polycythemia, tobacco consumption The patient is a 53-year-old gentleman. The patient presents to the ER with complaint of cough, wheezing, clear mucus production, shortness of breath. He does not complain of chest pain. He complains of lower back pain and arthralgias. He reports this is similar to prior episodes of asthma and COPD. He denies DVT and pulmonary embolus risk factors. Triggers include cold weather, change in seasons. He states he does not smoke cigarettes or consume tobacco. He reports that people around him do smoke. He was given albuterol, Atrovent, steroids, magnesium, subcutaneous epinephrine, which partially improved his symptoms, but did not completely resolve them. MD Complaint: shortness of breath, cough -: Gradual, hour(s) Consistency: constant Improves With: oxygen, rest, bronchodilators, upright position, medication Worsens With: lying flat, exertion Known History Of: COPD, asthma Context: recent URI Associated Symptoms: cough, sputum production - Related Data Previous Rx's Medication Instructions Recorded Last Taken Type ALBUTEROL NEB's [Proventil 0.083% 2.5 mg IH Q3HRT PRN #30 nebu 01/04/17 Unknown Rx NEBS] ALBUTEROL NEB's [Proventil 0.083% 2.5 mg IH Q4HRT PRN #30 nebu 02/17/18 Unknown Rx NEBS] Acetaminophen [Acetaminophen TAB] 650 mg PO Q4H PRN #30 tablet 02/17/18 Unknown Rx Budesonide/Formoterol Fumarate 10.2 gm IH BID #1 hfa.aer.ad 02/17/18 Unknown Rx [Symbicort 160-4.5 Mcg Inhaler] Famotidine [Pepcid] 20 mg PO BID #10 tablet 02/17/18 Unknown Rx Imatinib Mesylate [Gleevec] 100 mg PO DAILY #30 02/17/18 Unknown Rx guaiFENesin/CODEINE [Robitussin AC] 10 ml PO Q4H PRN 5 Days #30 05/24/18 Unknown Rx oral.liqd levoFLOXacin [Levaquin TAB] 500 mg PO Q24HR #3 tablet 02/17/18 Unknown Rx oxyCODONE /ACETAMINOPHEN [Percocet 1 tab PO Q6H PRN #10 tablet 02/17/18 Unknown Rx 5/325 mg] predniSONE [Deltasone] 1 dose PO QDAY #90 tab 02/17/18 Unknown Rx Allergies Allergy/AdvReac Type Severity Reaction Status Date / Time No Known Allergies Allergy Verified 08/29/19 15:18 ED Review of Systems ROS: Stated complaint: SOB/COPD Other details as noted in HPI Constitutional: malaise. denies: fever Eyes: denies: eye discharge ENT: congestion Respiratory: shortness of breath, SOB with exertion, wheezing Cardiovascular: denies: chest pain, syncope Gastrointestinal: denies: nausea, vomiting Genitourinary: denies: dysuria Musculoskeletal: back pain, arthralgia, myalgia Skin: denies: lesions Neurological: weakness Hematological/Lymphatic: denies: easy bleeding ED Past Medical Hx - Past Medical History Previous Medical History?: Yes Hx Diabetes: No Hx Asthma: Yes Hx COPD: Yes Hx HIV: No Additional medical history: leukemia - Surgical History Past Surgical History?: No - Social History Smoking Status: Never Smoker - Medications Home Medications: Home Medications Medication Instructions Recorded Confirmed Last Taken Type ALBUTEROL NEB's [Proventil 0.083% 2.5 mg IH Q3HRT PRN #30 nebu 01/04/17 02/14/18 Unknown Rx NEBS] ALBUTEROL NEB's [Proventil 0.083% 2.5 mg IH Q4HRT PRN #30 nebu 02/17/18 Unknown Rx NEBS] Acetaminophen [Acetaminophen TAB] 650 mg PO Q4H PRN #30 tablet 02/17/18 Unknown Rx Budesonide/Formoterol Fumarate 10.2 gm IH BID #1 hfa.aer.ad 02/17/18 Unknown Rx [Symbicort 160-4.5 Mcg Inhaler] Famotidine [Pepcid] 20 mg PO BID #10 tablet 02/17/18 Unknown Rx Imatinib Mesylate [Gleevec] 100 mg PO DAILY #30 02/17/18 02/14/18 Unknown Rx guaiFENesin/CODEINE [Robitussin AC] 10 ml PO Q4H PRN 5 Days #30 02/17/18 Unknown Rx oral.liqd levoFLOXacin [Levaquin TAB] 500 mg PO Q24HR #3 tablet 02/17/18 Unknown Rx oxyCODONE /ACETAMINOPHEN [Percocet 1 tab PO Q6H PRN #10 tablet 02/17/18 Unknown Rx 5/325 mg] predniSONE [Deltasone] 1 dose PO QDAY #90 tab 02/17/18 Unknown Rx ED Physical Exam - General Limitations: Physical Limitation General appearance: alert, anxious, in distress - Head Head exam: Present: atraumatic, normocephalic - Eye Eye exam: Present: normal appearance, EOMI. Absent: nystagmus - ENT ENT exam: Present: normal exam, normal orophraynx, mucous membranes moist, normal external ear exam - Neck Neck exam: Present: normal inspection, full ROM. Absent: tenderness, meningismus - Respiratory Respiratory exam: Present: respiratory distress, wheezes, rhonchi, accessory muscle use - Cardiovascular Cardiovascular Exam: Present: regular rate, normal rhythm, normal heart sounds. Absent: bradycardia, tachycardia, irregular rhythm, systolic murmur, diastolic murmur, rubs, gallop - GI/Abdominal GI/Abdominal exam: Present: soft. Absent: distended, tenderness, guarding, rebound, rigid, pulsatile mass - Rectal Rectal exam: Present: deferred - Extremities Exam Extremities exam: Present: normal inspection, full ROM, other (2+ pulses noted in the bilateral upper and lower extremities. There is no long bony tenderness. The muscular compartments are soft. The pelvis is stable.). Absent: pedal edema, joint swelling, calf tenderness - Back Exam Back exam: Present: normal inspection, full ROM. Absent: tenderness, CVA tenderness (R), CVA tenderness (L), paraspinal tenderness, vertebral tenderness - Neurological Exam Neurological exam: Present: alert, oriented X3, other (there is no facial droop. The tongue is midline. The extraocular movements are intact bilaterally. ) - Psychiatric Psychiatric exam: Present: anxious - Skin Skin exam: Present: warm, dry, intact, normal color. Absent: rash ED Course Vital Signs 08/29/19 08/29/19 08/29/19 17:21 19:16 19:17 Temperature 98.2 F 98.2 F Pulse Rate 103 H 103 H Pulse Rate [ Bilateral Throughout] Respiratory 20 21 21 Rate Respiratory Rate [Bilateral Throughout] Blood Pressure 142/88 Blood Pressure 142/88 [Left] O2 Sat by Pulse 96 92 92 Oximetry 08/29/19 19:18 Temperature Pulse Rate Pulse Rate [ 100 H Bilateral Throughout] Respiratory Rate Respiratory 19 Rate [Bilateral Throughout] Blood Pressure Blood Pressure [Left] O2 Sat by Pulse Oximetry - Reevaluation(s) Reevaluation #1: 08/29/19 19:10 Differential diagnosis, including but not limited to: COPD exacerbation, asthma exacerbation, multifactorial respiratory distress, bronchitis, bronchiectasis, pneumonia, pneumothorax, muscular pain Assessment and plan: [age]-year-old gentleman with no pulmonary embolism or DVT risk factors, low risk by well's criteria, with no complaints of chest pain to myself, abnormal EKG, unchanged from prior, with evidence of symptomatically reactive airway disease, manifested by tachypnea, hypoxia, accessory muscle use, wheezing and rhonchi. after my initial evaluation, aggressive therapy was ordered for the patient, including albuterol, Atrovent, steroids, magnesium, fluids, and subcutaneous epinephrine. This improved his symptoms somewhat, but he is still wheezing and symptomatically. Additional therapies ordered, in addition to arterial blood gas on room air. We will reassess after arterial blood gas and repeat therapies have been a dministered. X-ray not consistent with pneumonia or pneumothorax. Reevaluation #2: 08/29/19 19:37 Arterial blood gas shows hypoxemic respiratory failure. Additional therapies ordered. Hospital physician, Dr. Josselin Wilder to admit d/w Dr Josselin Wilder and ABY [facility] ED Medical Decision Making - Lab Data Result diagrams: 08/29/19 15:53 08/29/19 15:53 Vital Signs 08/29/19 17:21 Respiratory 20 Rate O2 Sat by Pulse 96 Oximetry Lab Results 08/29/19 08/29/19 08/29/19 Range/Units 15:53 15:53 15:53 WBC 8.0 (4.5-11.0) K/mm3 RBC 5.77 H (3.65-5.03) M/mm3 Hgb 18.0 H (11.8-15.2) gm/dl Hct 55.1 H (35.5-45.6) % MCV 96 H (84-94) fl MCH 31 (28-32) pg MCHC 33 (32-34) % RDW 14.5 (13.2-15.2) % Plt Count 189 (140-440) K/mm3 Lymph % (Auto) 24.7 (13.4-35.0) % [place] % (Auto) 8.1 H (0.0-7.3) % Eos % (Auto) 4.0 (0.0-4.3) % Baso % (Auto) 0.7 (0.0-1.8) % Lymph # 2.0 (1.2-5.4) K/mm3 [place] # 0.7 (0.0-0.8) K/mm3 Eos # 0.3 (0.0-0.4) K/mm3 Baso # 0.1 (0.0-0.1) K/mm3 Seg Neutrophils % 62.5 (40.0-70.0) % Seg Neutrophils # 5.0 (1.8-7.7) K/mm3 PT 12.1 L (12.2-14.9) Sec. INR 0.90 (0.87-1.13) APTT 29.4 (24.2-36.6) Sec. Sodium 135 L (137-145) mmol/L Potassium 4.3 (3.6-5.0) mmol/L Chloride 97.9 L (98-107) mmol/L Carbon Dioxide 20 L (22-30) mmol/L Anion Gap 21 mmol/L BUN 7 L (9-20) mg/dL Creatinine 1.0 (0.8-1.5) mg/dL Estimated GFR > 60 ml/min BUN/Creatinine Ratio 7 % Glucose 89 (75-100) mg/dL Calcium 9.8 (8.4-10.2) mg/dL Magnesium (1.7-2.3) mg/dL Total Creatine Kinase (55-170) units/L CK-MB (CK-2) (0.0-4.0) ng/mL CK-MB (CK-2) Rel Index (0-4) Troponin T (0.00-0.029) ng/mL 08/29/19 08/29/19 Range/Units 15:53 16:47 WBC (4.5-11.0) K/mm3 RBC (3.65-5.03) M/mm3 Hgb (11.8-15.2) gm/dl Hct (35.5-45.6) % MCV (84-94) fl MCH (28-32) pg MCHC (32-34) % RDW (13.2-15.2) % Plt Count (140-440) K/mm3 Lymph % (Auto) (13.4-35.0) % [place] % (Auto) (0.0-7.3) % Eos % (Auto) (0.0-4.3) % Baso % (Auto) (0.0-1.8) % Lymph # (1.2-5.4) K/mm3 [place] # (0.0-0.8) K/mm3 Eos # (0.0-0.4) K/mm3 Baso # (0.0-0.1) K/mm3 Seg Neutrophils % (40.0-70.0) % Seg Neutrophils # (1.8-7.7) K/mm3 PT (12.2-14.9) Sec. INR (0.87-1.13) APTT (24.2-36.6) Sec. Sodium (137-145) mmol/L Potassium (3.6-5.0) mmol/L Chloride (98-107) mmol/L Carbon Dioxide (22-30) mmol/L Anion Gap mmol/L BUN (9-20) mg/dL Creatinine (0.8-1.5) mg/dL Estimated GFR ml/min BUN/Creatinine Ratio % Glucose (75-100) mg/dL Calcium (8.4-10.2) mg/dL Magnesium 2.50 H (1.7-2.3) mg/dL Total Creatine Kinase 769 H 610 H (55-170) units/L CK-MB (CK-2) 16.1 H (0.0-4.0) ng/mL CK-MB (CK-2) Rel Index 2.0 (0-4) Troponin T < 0.010 (0.00-0.029) ng/mL - EKG Data -: EKG Interpreted by Ca EKG shows normal: sinus rhythm Rate: normal - EKG Data 08/29/19 19:14 EKG is unchanged from prior. The EKG shows a sinus rhythm, 97 bpm, normal axis, QTC within normal limits, ventricular hypertrophy, there is atrial enlargement and motion artifact. EKG appears unchanged from prior EKG from 02/14/2018. Is not consistent with ST elevation myocardial infarction. - Radiology Data Radiology results: report reviewed, image reviewed Print Report Referring Physician: MONICA LOPES Patient Name: RADHA MENESES Date of : 1965 Sex: Male Report Date: 2019-08-29 Report Status: Finalized Findings [facility] [address] [place] [address] XRay Report Signed Patient: RADHA MENESES MR#: [id number] : 1965 Acct:[id number] Age/Sex: 53 / M ADM Date: 08/29/19 Loc: ED Attending Dr: Ordering Physician: MONICA LOPES MD Date of Service: 08/29/19 Procedure(s): XR chest 1V ap Accession Number(s): [id number] cc: MONICA LOPES MD Fluoro Time In Minutes: CHEST 1 VIEW INDICATION / CLINICAL INFORMATION: sob. COMPARISON: 02/14/2018 FINDINGS: SUPPORT DEVICES: None. HEART / MEDIASTINUM: No significant abnormality. LUNGS / PLEURA: No significant pulmonary or pleural ab normality.. No pneumothorax. ADDITIONAL FINDINGS: No significant additional findings. IMPRESSION: 1. No acute findings. Signer Name: Zain Partida MD Signed: 08/29/2019 5:27 PM Workstation Name: [id number] Transcribed By: SS Dictated By: Zain Partida MD Electronically Authenticated By: Zain Partida MD Signed Date/Time: 08/29/191726 DD/ 25 Critical Care Time: Yes Critical care time in (mins) excluding proc time.: 60 Critical care attestation.: If time is entered above; I have spent that time in minutes in the direct care of this critically ill patient, excluding procedure time. ED Disposition Clinical Impression: Acute hypoxemic respiratory failure, Acute exacerbation of chronic obstructive pulmonary disease (COPD) Disposition: OP ADMIT IP TO THIS HOSP Is pt being admited?: Yes Condition: Serious Instructions: Chronic Obstructive Pulmonary Disease (ED)
[2019-08-29 16:23] LABS: BUN/Creatinine Ratio 7; Blood Urea Nitrogen 7 mg/dL (9-20); Calcium 9.8 mg/dL (8.4-10.2); Hemolysis Index 48
[2019-08-29 16:28] LABS: INR 0.9 (0.87-1.13); Partial Thromboplastin Time 29.4 Sec. (24.2-36.6)
--- NOTE | 2019-08-29 17:32 | XRay Report ---
CHEST 1 VIEW INDICATION / CLINICAL INFORMATION: sob. COMPARISON: 02/14/2018 FINDINGS: SUPPORT DEVICES: None. HEART / MEDIASTINUM: No significant abnormality. LUNGS / PLEURA: No significant pulmonary or pleural abnormality.. No pneumothorax. ADDITIONAL FINDINGS: No significant additional findings. IMPRESSION: 1. No acute findings. Signer Name: Zain Partida MD Signed: 08/29/2019 5:27 PM Workstation Name: [id number]
[2019-08-29] MEDS ORDERED: ALBUTEROL 2.5 MG/3 ML NEBU IH PRN (20:27)
[2019-08-29] MEDS ORDERED: ONDANSETRON 4 MG/2 ML INJ IV PRN (20:27)
[2019-08-29] MEDS ORDERED: ACETAMINOPHEN 500 MG TAB ONE (21:48)
[2019-08-29] MEDS ORDERED: ACETAMINOPHEN 325 MG TAB ONE (21:50)
[2019-08-29] MEDS: ACETAMINOPHEN 325 MG TAB PO PRN (21:51)
[2019-08-29] MEDS: methylPREDNISolone Sod Succinate 125 MG/2 ML INJ IV SCH (22:47)
[2019-08-29] MEDS: guaiFENesin ER 600 MG TAB PO SCH (22:47)
[2019-08-29] MEDS: DOCUSATE SODIUM 100 MG CAP PO SCH (22:48)
[2019-08-29] MEDS: HEPARIN 5,000 UNIT/1 ML VIAL SUB-Q SCH (22:48)
[2019-08-29] MEDS ORDERED: CYCLOBENZAPRINE 10 MG TAB PO PRN (22:52)
--- NOTE | 2019-08-29 22:55 | History and Physical Report ---
History of Present Illness Date of examination: 08/29/19 Date of admission: 08/29/19 19:38 Chief complaint: shortness of breath and wheezing History of present illness: 53-year-old -[place] male is a former smoker with history of COPD/asthma, polycythemia, and leukemia who presents to [facility] ED with complaints of shortness of breath, wheezing and chest congestion for the past 2-3 days. Pt states that he has episode cough with clear mucus production, with audible wheezing and chest tightness. He has tried his home nebulizer for the past 2 d ays with no relief. He also complains of lower back pain, muscle spasms and myalgia related to his leukemia. He admits to be in shot of breath at rest and with minimal activity. So was no improvement in his symptoms, he decided to come into the ED for further evaluation and treatment. He denies chest pain, hemoptysis, fever, nausea, vomiting, or recent sick contacts. Past History Past Medical History: cancer (leukemia), COPD (& Asthma), other (polycythemia) Past Surgical History: No surgical history Social history: lives with family (sister), other (former smoker quit 5 years ago) Family history: no significant family history Medications and Allergies Allergies Allergy/AdvReac Type Severity Reaction Status Date / Time No Known Allergies Allergy Verified 08/29/19 15:18 Home Medications Medication Instructions Recorded Confirmed Last Taken Type ALBUTEROL NEB's [Proventil 0.083% 2.5 mg IH Q3HRT PRN #30 nebu 01/04/17 08/29/19 Unknown Rx NEBS] ALBUTEROL NEB's [Proventil 0.083% 2.5 mg IH Q4HRT PRN #30 nebu 02/17/18 08/29/19 Unknown Rx NEBS] Imatinib Mesylate [Gleevec] 100 mg PO DAILY #30 02/17/18 08/29/19 Unknown Rx oxyCODONE /ACETAMINOPHEN [Percocet 1 tab PO Q6H PRN #10 tablet 02/17/18 08/29/19 Unknown Rx 5/325 mg] Allopurinol [Zyloprim] 300 mg PO DAILY 08/29/19 08/29/19 Unknown History Gabapentin [Neurontin] 600 mg PO Q8H 08/29/19 08/29/19 Unknown History Ibuprofen [Motrin 800 MG tab] 800 mg PO TID 08/29/19 08/29/19 Unknown History Active Meds: Active Medications Acetaminophen (Tylenol) 650 mg PO Q4H PRN PRN Reason: Pain MILD(1-3)/Fever >100.5/STUART Last Admin: 08/29/19 21:51 Dose: 650 mg Documented by: Albuterol (Proventil) 2.5 mg IH Q3HRT PRN PRN Reason: Shortness Of Breath Albuterol/Ipratropium (Duoneb *Not For Prn Use*) 1 ampul IH Q6HRT [facility] Budesonide (Pulmicort) 0.5 mg IH Q12HRT [facility] Docusate Sodium (Colace) 100 mg PO BID [facility] Last Admin: 08/29/19 22:48 Dose: 100 mg Documented by: Guaifenesin (Mucinex Er) 600 mg PO BID [facility] Last Admin: 08/29/19 22:47 Dose: 600 mg Documented by: Heparin Sodium (Porcine) (Heparin) 5,000 unit SUB-Q Q12HR [facility] Last Admin: 08/29/19 22:48 Dose: 5,000 unit Documented by: Methylprednisolone Sodium Succinate (Solu-Medrol) 80 mg IV Q8HR [facility] Last Admin: 08/29/19 22:47 Dose: 80 mg Documented by: Ondansetron HCl (Zofran) 4 mg IV Q8H PRN PRN Reason: Nausea And Vomiting Sodium Chloride (Sodium Chloride Flush Syringe 10 Ml) 10 ml IV BID [facility] Last Admin: 08/29/19 22:48 Dose: 10 ml Documented by: Sodium Chloride (Sodium Chloride Flush Syringe 10 Ml) 10 ml IV PRN PRN PRN Reason: LINE FLUSH Review of Systems All systems: negative Respiratory: shortness of breath, dyspnea on exertion, congestion, wheezing Musculoskeletal: low back pain, myalgias, other (arthralgia) Exam - Physical Exam Narrative exam: Physical exam General appearance: Present: mild distress, alert and oriented 3, well developed, adult male - EENT Eyes: Present: PERRL, EOM intact ENT: hearing intact, normal dentition - Neck Neck: Present: supple, normal ROM - Respiratory Respiratory effort: Non-labored Respiratory: wheezing throughout with poor air movement - Cardiovascular Heart rate: 97 (bpm) Rhythm: Sinus rhythm Heart Sounds: Present: S1 & S2. Absent: rub, click - Extremities Extremities: no ischemia, pulses intact, - Peripheral Assessment Peripheral Pulses: within normal limits - Abdominal General gastrointestinal: soft, non-tender, normal bowel sounds - Integumentary Integumentary: Present: warm, dry - Musculoskeletal Musculoskeletal: Able to move all extremities -Neurological Neurological: CN II-XII intact - Psychiatric Psychiatric: Appropriate for situation ,cooperative - Constitutional Vitals: Temp Pulse Resp BP Pulse Ox 97.9 F 85 16 110/78 95 08/29/19 22:33 08/29/19 22:33 08/29/19 22:33 08/29/19 22:33 08/29/19 22:33 Results - Labs CBC & Chem 7: 08/29/19 15:53 08/29/19 15:53 Labs: Laboratory Last Values WBC 8.0 K/mm3 (4.5-11.0) 08/29/19 15:53 RBC 5.77 M/mm3 (3.65-5.03) H 08/29/19 15:53 Hgb 18.0 gm/dl (11.8-15.2) H 08/29/19 15:53 Hct 55.1 % (35.5-45.6) H 08/29/19 15:53 MCV 96 fl (84-94) H 08/29/19 15:53 MCH 31 pg (28-32) 08/29/19 15:53 MCHC 33 % (32-34) 08/29/19 15:53 RDW 14.5 % (13.2-15.2) 08/29/19 15:53 Plt Count 189 K/mm3 (140-440) 08/29/19 15:53 Lymph % (Auto) 24.7 % (13.4-35.0) 08/29/19 15:53 [place] % (Auto) 8.1 % (0.0-7.3) H 08/29/19 15:53 Eos % (Auto) 4.0 % (0.0-4.3) 08/29/19 15:53 Baso % (Auto) 0.7 % (0.0-1.8) 08/29/19 15:53 Lymph # 2.0 K/mm3 (1.2-5.4) 08/29/19 15:53 [place] # 0.7 K/mm3 (0.0-0.8) 08/29/19 15:53 Eos # 0.3 K/mm3 (0.0-0.4) 08/29/19 15:53 Baso # 0.1 K/mm3 (0.0-0.1) 08/29/19 15:53 Seg Neutrophils % 62.5 % (40.0-70.0) 08/29/19 15:53 Seg Neutrophils # 5.0 K/mm3 (1.8-7.7) 08/29/19 15:53 PT 12.1 Sec. (12.2-14.9) L 08/29/19 15:53 INR 0.90 (0.87-1.13) 08/29/19 15:53 APTT 29.4 Sec. (24.2-36.6) 08/29/19 15:53 POC ABG pH 7.401 (7.35-7.45) 08/29/19 19:36 POC ABG pCO2 41.2 (35-45) 08/29/19 19:36 POC ABG pO2 55 (80-105) L 08/29/19 19:36 POC ABG HCO3 25.6 (22-26 mml/L) 08/29/19 19:36 POC ABG Total CO2 27 (23-27mmol/L) 08/29/19 19:36 POC ABG O2 Sat 88 08/29/19 19:36 POC ABG Base Excess 1 ((-2) - (+3)mmol/L) 08/29/19 19:36 FiO2 21 % 08/29/19 19:36 Sodium 135 mmol/L (137-145) L 08/29/19 15:53 Potassium 4.3 mmol/L (3.6-5.0) 08/29/19 15:53 Chloride 97.9 mmol/L (98-107) L 08/29/19 15:53 Carbon Dioxide 20 mmol/L (22-30) L 08/29/19 15:53 Anion Gap 21 mmol/L 08/29/19 15:53 BUN 7 mg/dL (9-20) L 08/29/19 15:53 Creatinine 1.0 mg/dL (0.8-1.5) 08/29/19 15:53 Estimated GFR > 60 ml/min 08/29/19 15:53 BUN/Creatinine Ratio 7 % 08/29/19 15:53 Glucose 89 mg/dL (75-100) 08/29/19 15:53 Calcium 9.8 mg/dL (8.4-10.2) 08/29/19 15:53 Magnesium 2.50 mg/dL (1.7-2.3) H 08/29/19 16:47 Total Creatine Kinase 610 units/L (55-170) H 08/29/19 16:47 CK-MB (CK-2) 16.1 ng/mL (0.0-4.0) H 08/29/19 15:53 CK-MB (CK-2) Rel Index 2.0 (0-4) 08/29/19 15:53 Troponin T < 0.010 ng/mL (0.00-0.029) 08/29/19 15:53 - Imaging and Cardiology Imaging and Cardiology: CXR: FINDINGS: SUPPORT DEVICES: None. HEART / MEDIASTINUM: No significant abnormality. LUNGS / PLEURA: No significant pulmonary or pleural abnormality.. No pneumothorax. ADDITIONAL FINDINGS: No significant additional findings. IMPRESSION: 1. No acute findings. Assessment and Plan Assessment and plan: 53-year-old -[place] male is a former smoker with history of COPD/asthma, polycythemia, and leukemia who presents to [facility] ED with complaints of shortness of breath, wheezing and chest congestion for the past 2-3 days. Pt received albuterol, Atrovent, steroids, magnesium, subcutaneous epinephrine in the ED, which partially improved his symptoms, but did not completely resolve them. Will admit for to Med Surg for further evaluation and treatment. Acute hypoxic respiratory failure -CXR unrevealing -No Baseline home oxygen requirements -Initial ABG 7.40/41.2/55/25.6 -Currently on supplemental oxygen -Monitor saturations -Repeat ABG in am -Continue supplemental oxygen wean as tolerated Acute exacerbation COPD/Asthma -Increased shortness of breath -Scheduled to DuoNebs and Pulmicort, albuterol when necessary -IV systemic steroids -On Mucinex Hx Polycythemia Hx Leukemia DVT PPX -on Lovenox Advance Directives: No VTE prophylaxis?: Chemical Plan of care discussed with patient/family: Yes
[2019-08-30] MEDS: GABAPENTIN 300 MG CAP PO SCH ×3 (01:28→17:43)
[2019-08-30] MEDS: IPRATROPIUM/ALBUTEROL SULFATE 3 ML AMPUL.NEB IH SCH ×4 (02:00→19:46)
[2019-08-30] MEDS: methylPREDNISolone Sod Succinate 125 MG/2 ML INJ IV SCH ×3 (05:23→22:20)
[2019-08-30 06:35] LABS: Basophils % (Auto) 0.1 % (0.0-1.8); Hematocrit 45.9 % (35.5-45.6); Hemoglobin 15.1 gm/dl (11.8-15.2); Lymphocytes # (Auto) 0.6 K/mm3 (1.2-5.4); Lymphocytes % (Auto) 13.1 % (13.4-35.0); Mean Corpuscular HGB Conc 33 % (32-34); Mean Corpuscular Volume 95 fl (84-94); Monocytes # (Auto) 0.1 K/mm3 (0.0-0.8); Monocytes % (Auto) 1.3 % (0.0-7.3); Platelet Count 165 K/mm3 (140-440); Red Blood Count 4.84 M/mm3 (3.65-5.03); Red Cell Distribution Width 14.3 % (13.2-15.2)
[2019-08-30 06:46] LABS: BUN/Creatinine Ratio 9; Blood Urea Nitrogen 8 mg/dL (9-20); Calcium 8.9 mg/dL (8.4-10.2); Hemolysis Index 3
[2019-08-30] MEDS: BUDESONIDE 0.5 MG/2 ML NEBU IH SCH ×2 (08:11→19:46)
[2019-08-30] MEDS: allopurinoL 300 MG TAB PO SCH (09:38)
[2019-08-30] MEDS: guaiFENesin ER 600 MG TAB PO SCH ×2 (09:38→22:20)
[2019-08-30] MEDS: DOCUSATE SODIUM 100 MG CAP PO SCH ×2 (09:38→22:20)
[2019-08-30] MEDS: HEPARIN 5,000 UNIT/1 ML VIAL SUB-Q SCH ×2 (09:39→22:20)
[2019-08-30] MEDS ORDERED: guaiFENesin DM 200/20 MG ORAL LIQD 10 ML PO PRN (12:40)
--- NOTE | 2019-08-30 12:43 | Progress Note ---
Assessment and Plan Assessment and plan: Acute respiratory failure with hypoxia -Probably secondary to COPD exacerbation -continue oxygen supplementation as needed Acute severe COPD exacerbation (pt denies h/o asthma) -probably 2/2 to acute bronchitis -Chest x-ray negative for acute infiltrate -cont IV steroids, duoneb, pulmicort and mucinex. Will add oral antibiotic with azithromycin SIRS evidenced by HR: 103 and RR:21, POA -Due to noninfectious cause with organ failure -Stable Hyperglycemia -Likely due to steroid use -On SSI Polycythemia -Likely secondary to COPD -Stable Hx Leukemia -For outpatient follow-up DVT prophylaxis with heparin Disposition: For discharge when medically stable, probably in 1-2 days History Interval history: Patient complained of cough and muscle spasm. He denies chest pain Hospitalist Physical - Constitutional Vitals: Temp Pulse Resp BP Pulse Ox 97.8 F 93 H 20 131/81 95 08/30/19 04:23 08/30/19 08:11 08/30/19 08:11 08/30/19 04:23 08/30/19 08:15 General appearance: Present: no acute distress, well-nourished - EENT Eyes: Present: PERRL, EOM intact ENT: hearing intact, clear oral mucosa - Neck Neck: Present: supple - Respiratory Respiratory effort: normal Respiratory: bilateral: diminished, negative: wheezing - Cardiovascular Rhythm: regular Heart Sounds: Present: S1 & S2 - Extremities Extremities: No edema - Abdominal General gastrointestinal: soft, non-tender, non-distended, normal bowel sounds - Integumentary Integumentary: Present: warm, dry - Psychiatric Psychiatric: appropriate mood/affect - Neurologic Neurologic: CNII-XII intact Results - Labs CBC & Chem 7: 08/30/19 05:56 08/30/19 05:56 Labs: Laboratory Last Values WBC 4.4 K/mm3 (4.5-11.0) L 08/30/19 05:56 RBC 4.84 M/mm3 (3.65-5.03) 08/30/19 05:56 Hgb 15.1 gm/dl (11.8-15.2) 08/30/19 05:56 Hct 45.9 % (35.5-45.6) H D 08/30/19 05:56 MCV 95 fl (84-94) H 08/30/19 05:56 MCH 31 pg (28-32) 08/30/19 05:56 MCHC 33 % (32-34) 08/30/19 05:56 RDW 14.3 % (13.2-15.2) 08/30/19 05:56 Plt Count 165 K/mm3 (140-440) 08/30/19 05:56 Lymph % (Auto) 13.1 % (13.4-35.0) L 08/30/19 05:56 [place] % (Auto) 1.3 % (0.0-7.3) 08/30/19 05:56 Eos % (Auto) 0.0 % (0.0-4.3) 08/30/19 05:56 Baso % (Auto) 0.1 % (0.0-1.8) 08/30/19 05:56 Lymph # 0.6 K/mm3 (1.2-5.4) L 08/30/19 05:56 [place] # 0.1 K/mm3 (0.0-0.8) 08/30/19 05:56 Eos # 0.0 K/mm3 (0.0-0.4) 08/30/19 05:56 Baso # 0.0 K/mm3 (0.0-0.1) 08/30/19 05:56 Seg Neutrophils % 85.5 % (40.0-70.0) H 08/30/19 05:56 Seg Neutrophils # 3.8 K/mm3 (1.8-7.7) 08/30/19 05:56 PT 12.1 Sec. (12.2-14.9) L 08/29/19 15:53 INR 0.90 (0.87-1.13) 08/29/19 15:53 APTT 29.4 Sec. (24.2-36.6) 08/29/19 15:53 POC ABG pH 7.401 (7.35-7.45) 08/29/19 19:36 POC ABG pCO2 41.2 (35-45) 08/29/19 19:36 POC ABG pO2 55 (80-105) L 08/29/19 19:36 POC ABG HCO3 25.6 (22-26 mml/L) 08/29/19 19:36 POC ABG Total CO2 27 (23-27mmol/L) 08/29/19 19:36 POC ABG O2 Sat 88 08/29/19 19:36 POC ABG Base Excess 1 ((-2) - (+3)mmol/L) 08/29/19 19:36 FiO2 21 % 08/29/19 19:36 Sodium 136 mmol/L (137-145) L 08/30/19 05:56 Potassium 4.2 mmol/L (3.6-5.0) 08/30/19 05:56 Chloride 102.4 mmol/L (98-107) 08/30/19 05:56 Carbon Dioxide 24 mmol/L (22-30) 08/30/19 05:56 Anion Gap 14 mmol/L 08/30/19 05:56 BUN 8 mg/dL (9-20) L 08/30/19 05:56 Creatinine 0.9 mg/dL (0.8-1.5) 08/30/19 05:56 Estimated GFR > 60 ml/min 08/30/19 05:56 BUN/Creatinine Ratio 9 % 08/30/19 05:56 Glucose 169 mg/dL (75-100) H 08/30/19 05:56 Calcium 8.9 mg/dL (8.4-10.2) 08/30/19 05:56 Magnesium 2.50 mg/dL (1.7-2.3) H 08/29/19 16:47 Total Creatine Kinase 610 units/L (55-170) H 08/29/19 16:47 CK-MB (CK-2) 16.1 ng/mL (0.0-4.0) H 08/29/19 15:53 CK-MB (CK-2) Rel Index 2.0 (0-4) 08/29/19 15:53 Troponin T < 0.010 ng/mL (0.00-0.029) 08/29/19 15:53 Active Medications - Current Medications Current Medications: Generic Name Dose Route Start Last Admin Trade Name Freq PRN Reason Stop Dose Admin Acetaminophen 650 mg 08/29/19 20:27 08/29/19 21:51 Tylenol PO 650 mg Q4H PRN Administration Pain MILD(1-3)/Fever >100.5/STUART Albuterol 2.5 mg 08/29/19 20:27 Proventil IH Q3HRT PRN Shortness Of Breath Albuterol/Ipratropium 1 ampul 08/30/19 02:00 08/30/19 08:11 Duoneb *Not For Prn Use* IH 1 ampul Q6HRT VALARIE Administration Allopurinol 300 mg 08/30/19 10:00 08/30/19 09:38 Zyloprim PO 300 mg DAILY VALARIE Administration Budesonide 0.5 mg 08/30/19 08:00 08/30/19 08:11 Pulmicort IH 0.5 mg Q12HRT VALARIE Administration Cyclobenzaprine HCl 5 mg 08/29/19 22:52 Flexeril PO Q8H PRN Muscle Spasm Docusate Sodium 100 mg 08/29/19 22:00 08/30/19 09:38 Colace PO 100 mg BID VALARIE Administration Gabapentin 600 mg 08/30/19 00:00 08/30/19 01:28 Gabapentin PO 600 mg Q8H VALARIE Administration Guaifenesin 600 mg 08/29/19 22:00 08/30/19 09:38 Mucinex Er PO 600 mg BID VALARIE Administration Heparin Sodium (Porcine) 5,000 unit 08/29/19 22:00 08/30/19 09:39 Heparin SUB-Q 5,000 unit Q12HR VALARIE Administration Methylprednisolone Sodium Succinate 80 mg 08/29/19 22:00 08/30/19 05:23 Solu-Medrol IV 80 mg Q8HR VALARIE Administration Ondansetron HCl 4 mg 08/29/19 20:27 Zofran IV Q8H PRN Nausea And Vomiting Sodium Chloride 10 ml 08/29/19 22:00 08/29/19 22:48 Sodium Chloride Flush Syringe 10 Ml IV 10 ml BID VALARIE Administration Sodium Chloride 10 ml 08/29/19 20:27 Sodium Chloride Flush Syringe 10 Ml IV PRN PRN LINE FLUSH Nutrition/Malnutrition Assess - Dietary Evaluation Nutrition/Malnutrition Findings: Nutrition Notes Start: 08/30/19 11:07 Freq: Status: Active Protocol: Document 08/30/19 11:07 CT (Rec: 08/30/19 11:21 CT [id number]) Co-Sign 08/30/19 11:07 LP Nutrition Notes Need for Assessment generated from: [employer] officer,MST Initial or Follow up Assessment Current Diagnosis COPD Other Pertinent Diagnosis asthma, polycythenia, leukemia , acute hypoxia respiratory failure Current Diet Regular Labs/Tests Na 136 BUN 8 Glu 169 Pertinent Medications Solumedrol Height 5 ft 6 in Weight 68.6 kg Usual Body Weight 74.843 kg [place] Body Weight (kg) 64.54 BMI 24.4 Intake Prior to Admission Fair Weight change and time frame 8%-8.5% wt loss in 1 month Weight Status Appropriate Subjective/Other Information Consult for MST score 2. Pt stated not having a good appetite, that it fluctuates constantly, and he does not eat regularly. Pt report of eating all of his breakfast this am but not eating anything the previous day. Pt was asked if he would like Ensure, he stated yes. Pt stated a 10 lb wt loss in 2 months and that his UBW is 155 -165 lbs. Noted slight temporal and orbital wasting. Preferences were noted. Burn Absent Trauma Absent GI Symptoms None Food Allergy No Current % PO Fair (50-74%) Minimum of two criteria Yes Energy Intake (non-severe) <75% Estimated Energy Requirement >7 days Interpretation of Weight Loss (severe) >5% in 1 month Body Fat Depletion Mild depletion (non-severe) Muscle Mass Mild Depletion (non-severe) #1 Nutrition Diagnosis Increased nutrient needs ( specify in comment below), Malnutrition Comments: energy and protein Etiology COPD, leukemia As Evidenced by Signs and Symptoms mild body fat and muscle mass depletion, <75% EER >7 days, 8 -8.5% wt loss in 1 month Is patient on ventilator? No Is Patient Ambulatory and/or Out of Bed Yes REE-([facility]-ambulatory/OOB) [ 1909.375 [id number]] Kcal/Kg value to use for calculation 33 Approximate Energy Requirements Using 2264 kcal/Kg Calculation Used for Recommendations [facility] Additional Notes Protein: 82-103 g/kg/day (1.2- 1.5 g/kg/day) Fluid: 1 ml/kcal Nutrition Intervention Change Diet Order: Continue current Add Supplement/Snack (indicate name/kcal Add Ensure Enlive chocolate /protein ) and vanilla BID Provides kCal: 700 Provides Protein (gm) 40 Goal #1 Meet >75% of energy and protein needs Goal #2 wt maintenance Anticipated Discharge Needs: Regular diet with ONS PRN Follow-Up By: 09/01/19 Additional Comments Follow up for PO intake and ONS tolerance
[2019-08-30] MEDS ORDERED: DEXTROSE 50% IN WATER (25GM) 50 ML SYRINGE IV PRN (12:50)
[2019-08-30] MEDS: AZITHROMYCIN 250 MG TAB PO SCH (13:57)
[2019-08-30] MEDS: HYDROcodone/ACETAMINOPHEN 5-325 MG TAB PO PRN ×2 (14:07→17:53)
[2019-08-30] MEDS: INSULIN REGULAR, HUMAN 100 UNITS/1 ML SUB-Q SCH ×2 (17:44→22:00)
[2019-08-30] MEDS: ACETAMINOPHEN 325 MG TAB PO PRN (22:35)
[2019-08-31] MEDS: GABAPENTIN 300 MG CAP PO SCH ×3 (00:05→17:01)
[2019-08-31 05:51] LABS: Hematocrit 44.5 % (35.5-45.6); Hemoglobin 14.4 gm/dl (11.8-15.2); Mean Corpuscular HGB Conc 32 % (32-34); Mean Corpuscular Volume 96 fl (84-94); Platelet Count 179 K/mm3 (140-440); Red Blood Count 4.65 M/mm3 (3.65-5.03); Red Cell Distribution Width 14.4 % (13.2-15.2)
[2019-08-31] MEDS: methylPREDNISolone Sod Succinate 125 MG/2 ML INJ IV SCH (06:13)
[2019-08-31] MEDS: IPRATROPIUM/ALBUTEROL SULFATE 3 ML AMPUL.NEB IH SCH ×4 (06:17→21:00)
[2019-08-31] MEDS: BUDESONIDE 0.5 MG/2 ML NEBU IH SCH ×2 (07:59→21:00)
[2019-08-31] MEDS: INSULIN REGULAR, HUMAN 100 UNITS/1 ML SUB-Q SCH ×4 (08:26→22:37)
[2019-08-31] MEDS: allopurinoL 300 MG TAB PO SCH (11:34)
[2019-08-31] MEDS: guaiFENesin ER 600 MG TAB PO SCH ×2 (11:34→22:38)
[2019-08-31] MEDS: AZITHROMYCIN 250 MG TAB PO SCH (11:34)
[2019-08-31] MEDS: HEPARIN 5,000 UNIT/1 ML VIAL SUB-Q SCH ×2 (11:37→22:38)
[2019-08-31] MEDS: DOCUSATE SODIUM 100 MG CAP PO SCH ×2 (11:40→22:38)
[2019-08-31] MEDS ORDERED: guaiFENesin/CODEINE 100-10MG ORAL LIQD 5 ML PO PRN (12:29)
--- NOTE | 2019-08-31 12:34 | Progress Note ---
Assessment and Plan Assessment and plan: Acute respiratory failure with hypoxia -Probably secondary to COPD exacerbation, improving -continue oxygen supplementation as needed Acute severe COPD exacerbation (pt denies h/o asthma) -probably 2/2 to acute bronchitis -Chest x-ray negative for acute infiltrate -cont IV steroid taper, duoneb, pulmicort, mucinex and oral antibiotic SIRS evidenced by HR: 103 and RR:21, POA -Due to noninfectious cause with organ failure -Stable Hyperglycemia -Likely due to steroid use -On SSI Polycythemia -Likely secondary to COPD -Stable Hx Leukemia -For outpatient follow-up DVT prophylaxis with heparin Disposition: Pt is still sob on exertion, will cont mgx for another 24 hrs. For possible discharge in am if medically stable History Interval history: Pt still reports cough with sob on moderate exertion Hospitalist Physical - Constitutional Vitals: Temp Pulse Resp BP Pulse Ox 98.4 F 89 18 132/75 94 08/31/19 11:59 08/31/19 11:59 08/31/19 11:59 08/31/19 11:59 08/31/19 11:59 General appearance: Present: no acute distress, well-nourished - EENT Eyes: Present: PERRL, EOM intact ENT: hearing intact, clear oral mucosa - Neck Neck: Present: supple - Respiratory Respiratory effort: normal Respiratory: bilateral: diminished, negative: wheezing - Cardiovascular Rhythm: regular Heart Sounds: Present: S1 & S2 - Extremities Extremities: No edema - Abdominal General gastrointestinal: soft, non-tender, normal bowel sounds - Integumentary Integumentary: Present: warm, dry - Psychiatric Psychiatric: appropriate mood/affect - Neurologic Neurologic: CNII-XII intact Results - Labs CBC & Chem 7: 08/31/19 05:26 08/30/19 05:56 Labs: Laboratory Last Values WBC 11.2 K/mm3 (4.5-11.0) H 08/31/19 05:26 RBC 4.65 M/mm3 (3.65-5.03) 08/31/19 05:26 Hgb 14.4 gm/dl (11.8-15.2) 08/31/19 05:26 Hct 44.5 % (35.5-45.6) 08/31/19 05:26 MCV 96 fl (84-94) H 08/31/19 05:26 MCH 31 pg (28-32) 08/31/19 05:26 MCHC 32 % (32-34) 08/31/19 05:26 RDW 14.4 % (13.2-15.2) 08/31/19 05:26 Plt Count 179 K/mm3 (140-440) 08/31/19 05:26 Lymph % (Auto) 13.1 % (13.4-35.0) L 08/30/19 05:56 [place] % (Auto) 1.3 % (0.0-7.3) 08/30/19 05:56 Eos % (Auto) 0.0 % (0.0-4.3) 08/30/19 05:56 Baso % (Auto) 0.1 % (0.0-1.8) 08/30/19 05:56 Lymph # 0.6 K/mm3 (1.2-5.4) L 08/30/19 05:56 [place] # 0.1 K/mm3 (0.0-0.8) 08/30/19 05:56 Eos # 0.0 K/mm3 (0.0-0.4) 08/30/19 05:56 Baso # 0.0 K/mm3 (0.0-0.1) 08/30/19 05:56 Seg Neutrophils % 85.5 % (40.0-70.0) H 08/30/19 05:56 Seg Neutrophils # 3.8 K/mm3 (1.8-7.7) 08/30/19 05:56 PT 12.1 Sec. (12.2-14.9) L 08/29/19 15:53 INR 0.90 (0.87-1.13) 08/29/19 15:53 APTT 29.4 Sec. (24.2-36.6) 08/29/19 15:53 POC ABG pH 7.401 (7.35-7.45) 08/29/19 19:36 POC ABG pCO2 41.2 (35-45) 08/29/19 19:36 POC ABG pO2 55 (80-105) L 08/29/19 19:36 POC ABG HCO3 25.6 (22-26 mml/L) 08/29/19 19:36 POC ABG Total CO2 27 (23-27mmol/L) 08/29/19 19:36 POC ABG O2 Sat 88 08/29/19 19:36 POC ABG Base Excess 1 ((-2) - (+3)mmol/L) 08/29/19 19:36 FiO2 21 % 08/29/19 19:36 Sodium 136 mmol/L (137-145) L 08/30/19 05:56 Potassium 4.2 mmol/L (3.6-5.0) 08/30/19 05:56 Chloride 102.4 mmol/L (98-107) 08/30/19 05:56 Carbon Dioxide 24 mmol/L (22-30) 08/30/19 05:56 Anion Gap 14 mmol/L 08/30/19 05:56 BUN 8 mg/dL (9-20) L 08/30/19 05:56 Creatinine 0.9 mg/dL (0.8-1.5) 08/30/19 05:56 Estimated GFR > 60 ml/min 08/30/19 05:56 BUN/Creatinine Ratio 9 % 08/30/19 05:56 Glucose 169 mg/dL (75-100) H 08/30/19 05:56 POC Glucose 102 (70-105) 08/31/19 08:20 Calcium 8.9 mg/dL (8.4-10.2) 08/30/19 05:56 Magnesium 2.50 mg/dL (1.7-2.3) H 08/29/19 16:47 Total Creatine Kinase 610 units/L (55-170) H 08/29/19 16:47 CK-MB (CK-2) 16.1 ng/mL (0.0-4.0) H 08/29/19 15:53 CK-MB (CK-2) Rel Index 2.0 (0-4) 08/29/19 15:53 Troponin T < 0.010 ng/mL (0.00-0.029) 08/29/19 15:53 Active Medications - Current Medications Current Medications: Generic Name Dose Route Start Last Admin Trade Name Freq PRN Reason Stop Dose Admin Acetaminophen 650 mg 08/29/19 20:27 08/30/19 22:35 Tylenol PO 650 mg Q4H PRN Administration Pain MILD(1-3)/Fever >100.5/STUART Acetaminophen/Hydrocodone Bitart 1 each 08/30/19 12:40 08/30/19 17:53 [place] 5/325 PO 1 each Q4H PRN Administration Pain, Moderate (4-6) Albuterol 2.5 mg 08/29/19 20:27 Proventil IH Q3HRT PRN Shortness Of Breath Albuterol/Ipratropium 1 ampul 08/30/19 02:00 08/31/19 07:59 Duoneb *Not For Prn Use* IH 1 ampul Q6HRT VALARIE Administration Allopurinol 300 mg 08/30/19 10:00 08/31/19 11:34 Zyloprim PO 300 mg DAILY VALARIE Administration Azithromycin 500 mg 08/30/19 13:00 08/31/19 11:34 Zithromax PO 09/01/19 10:01 500 mg QDAY VALARIE Administration Budesonide 0.5 mg 08/30/19 08:00 08/31/19 07:59 Pulmicort IH 0.5 mg Q12HRT VALARIE Administration Cyclobenzaprine HCl 5 mg 08/29/19 22:52 Flexeril PO Q8H PRN Muscle Spasm Dextrose 50 ml 08/30/19 12:50 D50w (25gm) Syringe IV Q30MIN PRN Hypoglycemia Protocol Docusate Sodium 100 mg 08/29/19 22:00 08/31/19 11:40 Colace PO 100 mg BID VALARIE Administration Gabapentin 600 mg 08/30/19 00:00 08/31/19 08:29 Gabapentin PO 600 mg Q8H VALARIE Administration Guaifenesin 600 mg 08/29/19 22:00 08/31/19 11:34 Mucinex Er PO 600 mg BID VALARIE Administration Heparin Sodium (Porcine) 5,000 unit 08/29/19 22:00 08/31/19 11:37 Heparin SUB-Q 5,000 unit Q12HR VALARIE Administration Insulin Human Regular 0 units 08/30/19 16:30 08/31/19 08:26 Humulin R SUB-Q Not Given ACHS VALARIE Protocol Methylprednisolone Sodium Succinate 60 mg 08/30/19 12:51 08/31/19 06:13 Solu-Medrol IV 60 mg Q8HR VALARIE Administration Ondansetron HCl 4 mg 08/29/19 20:27 Zofran IV Q8H PRN Nausea And Vomiting Sodium Chloride 10 ml 08/29/19 22:00 08/31/19 11:37 Sodium Chloride Flush Syringe 10 Ml IV 10 ml BID VALARIE Administration Sodium Chloride 10 ml 08/29/19 20:27 08/31/19 06:13 Sodium Chloride Flush Syringe 10 Ml IV 10 ml PRN PRN Administration LINE FLUSH Nutrition/Malnutrition Assess - Dietary Evaluation Nutrition/Malnutrition Findings: Nutrition Notes Start: 08/30/19 11:07 Freq: Status: Active Protocol: Document 08/30/19 11:07 CT (Rec: 08/30/19 11:21 CT [id number]) Co-Sign 08/30/19 11:07 LP Nutrition Notes Need for Assessment generated from: global compensation manager,MST Initial or Follow up Assessment Current Diagnosis COPD Other Pertinent Diagnosis asthma, polycythenia, leukemia , acute hypoxia respiratory failure Current Diet Regular Labs/Tests Na 136 BUN 8 Glu 169 Pertinent Medications Solumedrol Height 5 ft 6 in Weight 68.6 kg Usual Body Weight 74.843 kg Rector Body Weight (kg) 64.54 BMI 24.4 Intake Prior to Admission Fair Weight change and time frame 8%-8.5% wt loss in 2 month Weight Status Appropriate Subjective/Other Information Consult for MST score 2. Pt stated not having a good appetite, that it fluctuates constantly, and he does not eat regularly. Pt report of eating all of his breakfast this am but not eating anything the previous day. Pt was asked if he would like Ensure, he stated yes. Pt stated a 10 lb wt loss in 2 months and that his UBW is 155 -165 lbs. Noted slight temporal and orbital wasting. Preferences were noted. Burn Absent Trauma Absent GI Symptoms None Food Allergy No Current % PO Fair (50-74%) Minimum of two criteria Yes Energy Intake (non-severe) <75% Estimated Energy Requirement >7 days Interpretation of Weight Loss (severe) >5% in 1 month Body Fat Depletion Mild depletion (non-severe) Muscle Mass Mild Depletion (non-severe) #1 Nutrition Diagnosis Malnutrition Etiology COPD, leukemia As Evidenced by Signs and Symptoms mild body fat and muscle mass depletion, <75% EER >7 days, 8 -8.5% wt loss in 1 month Is patient on ventilator? No Is Patient Ambulatory and/or Out of Bed Yes REE-(Palmer-St. Jeor-ambulatory/OOB) [ 1909.375 [id number]] Calculation Used for Recommendations Mi [place] Additional Notes Protein: 82-103 g/kg/day (1.2- 1.5 g/kg/day) Fluid: 1 ml/kcal Nutrition Intervention Change Diet Order: Continue current Add Supplement/Snack (indicate name/kcal Add Ensure Enlive chocolate /protein ) and vanilla BID Provides kCal: 700 Provides Protein (gm) 40 Goal #1 Meet >75% of energy and protein needs Goal #2 wt maintenance Anticipated Discharge Needs: Regular diet with ONS PRN Follow-Up By: 09/01/19 Additional Comments Follow up for PO intake and ONS tolerance
[2019-08-31] MEDS ORDERED: LIP THERAPY VASELINE TP PRN (15:37)
[2019-08-31] MEDS: methylPREDNISolone Sod Succinate 40 MG/1 ML INJ IV SCH (17:01)
[2019-09-01] MEDS: GABAPENTIN 300 MG CAP PO SCH ×2 (00:09→09:23)
[2019-09-01] MEDS: IPRATROPIUM/ALBUTEROL SULFATE 3 ML AMPUL.NEB IH SCH ×2 (02:12→09:21)
[2019-09-01] MEDS: methylPREDNISolone Sod Succinate 40 MG/1 ML INJ IV SCH (06:08)
[2019-09-01 06:36] VITALS: BP 124/78
[2019-09-01] MEDS: INSULIN REGULAR, HUMAN 100 UNITS/1 ML SUB-Q SCH (07:55)
[2019-09-01] MEDS: BUDESONIDE 0.5 MG/2 ML NEBU IH SCH (09:21)
[2019-09-01] MEDS: AZITHROMYCIN 250 MG TAB PO SCH (09:23)
[2019-09-01] MEDS: DOCUSATE SODIUM 100 MG CAP PO SCH (09:23)
[2019-09-01] MEDS: allopurinoL 300 MG TAB PO SCH (09:24)
[2019-09-01] MEDS: HEPARIN 5,000 UNIT/1 ML VIAL SUB-Q SCH (09:24)
[2019-09-01] MEDS: guaiFENesin ER 600 MG TAB PO SCH (09:24)
--- NOTE | 2019-09-01 11:06 | Discharge Summary ---
Providers - Providers Date of Admission: 08/29/19 19:38 Date of discharge: 09/01/19 Attending physician: TUYET CARLOS Primary care physician: SERVER SUPPORT TECHNICIAN Hospitalization Reason for admission: Acute respiratory failure with hypoxia Condition: Stable Procedures: None Hospital course: Final discharge diagnosis: Acute respiratory failure with hypoxia, probably secondary to COPD exacerbation Acute severe COPD exacerbation, probably 2/2 to acute bronchitis SIRS due to noninfectious cause with organ failure Hyperglycemia likely due to steroid use Polycythemia likely secondary to COPD Hx of Leukemia Hospital course: Pt was admitted and placed on 02 supplementation, IV steroids, antibiotic and neb tx. Subsequently, he improved clinically and was deemed stable for d/c with clinic f/u. Disposition: DC-01 TO HOME OR SELFCARE Time spent for discharge: 38 mins Core Measure Documentation - Palliative Care Palliative Care/ Comfort Measures: Not Applicable - Core Measures Any of the following diagnoses?: none Exam - Constitutional Vitals: Temp Pulse Resp BP Pulse Ox 98.0 F 96 H 18 124/78 92 09/01/19 05:40 09/01/19 09:21 09/01/19 09:21 09/01/19 05:40 09/01/19 09:21 General appearance: Present: no acute distress, well-nourished - EENT Eyes: Present: PERRL, EOM intact ENT: hearing intact, clear oral mucosa - Neck Neck: Present: supple, normal ROM - Respiratory Respiratory effort: normal Respiratory: bilateral: CTA - Cardiovascular Rhythm: regular Heart Sounds: Present: S1 & S2. Absent: rub, click - Extremities Extremities: No edema - Abdominal General gastrointestinal: Present: soft, non-tender, non-distended, normal bowel sounds - Integumentary Integumentary: Present: clear, warm, dry - Musculoskeletal Musculoskeletal: gait normal, strength equal bilaterally - Psychiatric Psychiatric: appropriate mood/affect, intact judgment & insight - Neurologic Neurologic: CNII-XII intact, moves all extremities Plan Follow up with: PRIMARY CARE, [Primary Care Provider] - 7 Days Prescriptions: predniSONE [Deltasone] 20 mg PO QDAY #5 tab guaiFENesin ER [Mucinex ER] 600 mg PO BID #10 tablet
== END 2019-09-01 11:40 | disposition home or self-care (01) | DRG 189 ==
LOC: ED 15:16 → 3A 19:38
PROVIDERS: ADMIT Internal Medicine; ATTEND Internal Medicine
PROC: 4A033R1 Measurement of Arterial Saturation, Peripheral, Percutaneous Approach (ICD-10-PCS; principal; 2019-08-29)
DX: J96.01 Acute respiratory failure with hypoxia (principal); J20.9 Acute bronchitis, unspecified; J45.909 Unspecified asthma, uncomplicated; J44.1 Chronic obstructive pulmonary disease with (acute) exacerbation; D75.1 Secondary polycythemia; R65.11 Systemic inflammatory response syndrome (SIRS) of non-infectious origin with acute organ dysfunction; R73.9 Hyperglycemia, unspecified; J44.0 Chronic obstructive pulmonary disease with (acute) lower respiratory infection; Z85.6 Personal history of leukemia; Z79.899 Other long term (current) drug therapy; Z79.51 Long term (current) use of inhaled steroids; Z87.891 Personal history of nicotine dependence
CPT/HCPCS: 36415; 71045; 80048; 82550; 82553; 82803; 82962; 83735; 84484; 85025; 85027; 85610; 85730; 87116; 93005; 93010; 94640; 94644; 94760; 96374; G0378; J0171; J1644; J1815; J2920; J2930; J3475; J7030

== ENCOUNTER 2019-09-18 09:55 | Emergency (ER) | payer MEDICAID ==
[2019-09-18 18:35] VITALS: BP 122/76
== END 2019-09-18 18:28 | disposition home or self-care (01) ==
LOC: ED 09:55
DX: J06.9 Acute upper respiratory infection, unspecified (principal); J44.1 Chronic obstructive pulmonary disease with (acute) exacerbation; F10.10 Alcohol abuse, uncomplicated; Z87.891 Personal history of nicotine dependence; Z79.899 Other long term (current) drug therapy
CPT/HCPCS: 36415; 71046; 80053; 81001; 82140; 85007; 85025; 85730; 87040; 87400; 94640; 96374; 96375; 99284; J2930; J7030; 94644